=== PATIENT | male | born 1940 | race Caucasian/White ===

== ENCOUNTER 2016-08-18 06:18 | Inpatient (IN) ==
--- NOTE | 2016-08-18 06:45 | Anesthesia Evaluation PreOp ---
Date of Encounter: 08/18/16 Time of Encounter: 06:45 - Past History Planned Operation: robotic sigmoid colectomy Cardiac History: HTN (Is on atenolol for ascending aortic aneurysm. Most recent evaluation showed aneurysm has "shrunk".) Pulmonary History: CHAS Dx (On Bipap, uncertain of settings) Other Medical History: Denies Any Significant HX Anesthesia History: No Prior Anesthetic Complications (Reports history of slow wake up but no other problems.), Past Anesthesia Alcohol Use: none Drug use: none Medications and Allergies Acetaminophen [Tylenol] 500 mg PO Q6HR PRN 05/05/16 [History] Atenolol [Tenormin] 25 mg PO DAILY 05/05/16 [History] Cholecalciferol (D-3) [Vitamin D] 2,000 unit PO DAILY 05/05/16 [History] Cyanocobalamin (Vitamin B-12) [Vitamin B12] 1,000 mcg PO DAILY 05/05/16 [History ] Desoximetasone 1 appl TP BID 05/05/16 [History] Docusate [Colace] 200 mg PO TID 05/05/16 [History] Finasteride [Proscar] 5 mg PO DAILY 05/05/16 [History] Furosemide [Lasix] 40 mg PO DAILY 05/05/16 [History] Lactobacillus Acidophilus [Acidophilus Probiotic] 1 mg PO DAILY 05/05/16 [ History] Metformin HCl [Metformin HCl ER] 750 mg PO QPM 05/05/16 [History] Potassium Chloride [K-Tab ER] 20 meq PO DAILY 05/05/16 [History] Tamsulosin [Flomax] 0.4 mg PO DAILY 05/05/16 [History] Allergies Amoxicillin [From Augmentin] Allergy (Verified 06/13/16 08:19) Hives clavulanic acid [From Augmentin] Allergy (Verified 06/13/16 08:19) Hives codeine Allergy (Verified 06/13/16 08:19) Nausea Latex, Natural Rubber Allergy (Verified 06/13/16 08:19) Itching meperidine [From Demerol] Allergy (Verified 06/13/16 08:19) Hives tetanus immune globulin Allergy (Verified 06/13/16 08:19) Hives - Meds/Allergy Pre-op Review Medications Reviewed: Yes Allergies Reviewed: Yes Beta Blockers on Current Med List: Yes (Last dose at 0500) Anesthesia Results - Labs Laboratory Tests 06/13/16 08/08/16 08/08/16 08:04 14:30 14:30 Hgb 15.6 Hct 46.7 Plt Count 182 Sodium 138 Potassium 4.3 Chloride 106 Carbon Dioxide 23 Creatinine 1.03 POC Glucose 108 H - Imaging EKG: report reviewed (sinus rhythm) Anesthesia Assess/Plan ASA Score: 3 Modified Elburn Scale for Level of Consciousness: Cooperative, oriented, and tranquil Anesthetic Plan: General Monitoring Plan: Standard Monitors Recovery Plan: PACU (ASA 3 with HTN, CHAS, and morbid obesity (BMI 43). Risks of GA discussed and patient wishes to proceed.)
[2016-08-18] MEDS ORDERED: *HR* Heparin 5,000 UNIT/ML VIAL SQ ONE (07:04)
[2016-08-18] MEDS: Ringers Solution, Lactated 1,000 ML IVC SCH ×2 (07:15→09:01)
[2016-08-18] MEDS ORDERED: Clindamycin 900 MG/50 ML 900 MG/50 ML IV.SOLN IVPB ONE (07:35)
--- NOTE | 2016-08-18 07:38 | History & Physical Report ---
Date of Encounter: 08/18/16 Time of Encounter: 07:25 24 Hour HP Update - Instructions Instructions: If the History and Physical is less than 30 days old and was completed prior to A.M. admission and or procedure and has NOT been updated on calendar day of procedure please complete this update prior to performing procedure. - Update Patient reports changes in Medical Condition: No Changes in assessment/condition: No Changes in Medication: No Surgery Remains Indicated: Yes Consent for Planned Operative Procedure(s) Verified: Yes - Pre-Operative Checklist Prophylactic Antibiotic Ordered: Yes Home Medications Include Beta Ragini: Yes Is VTE Prophylaxis Indicated?: Yes
[2016-08-18] MEDS ORDERED: Ondansetron 4 MG/2 ML VIAL IVP ONE (10:14)
[2016-08-18] MEDS ORDERED: *HR* Labetalol 100 MG/20 ML MDV IVP PRN (10:14)
[2016-08-18] MEDS ORDERED: *HR* Propofol 200 MG/20 ML VIAL IVP ONE (10:24)
[2016-08-18] MEDS ORDERED: *HR* Succinylcholine 200 MG/10 ML VIAL IVP ONE (10:24)
[2016-08-18] MEDS ORDERED: *HR* FentaNYL (PF) 100 MCG/2 ML VIAL ONE (10:24)
[2016-08-18] MEDS ORDERED: *HR* HYDROmorphone 2 MG/ML SYRINGE ONE (10:24)
[2016-08-18] MEDS ORDERED: *HR* Rocuronium Bromide 50 MG/5 ML VIAL ONE ×3 (10:24→11:42)
[2016-08-18] MEDS ORDERED: Neostigmine Methylsulfate 3 MG/3 ML SYRINGE ONE (13:55)
--- NOTE | 2016-08-18 14:04 | Operative Note ---
Date of procedure: 08/18/16 Pre-op diagnosis: perforated sigmoid diverticulitis Post-op diagnosis: same Procedure: Robotic converted to open sigmoid colectomy and takedown of splenic flexure Complications: none immediate Anesthesia: CHAUNCEYA Surgeon: Josette Renae Co-Surgeon: Raoul Mccann Psychotherapist Counselor: Angela Winkler Estimated blood loss (cc): 300 IV fluids (cc): 4,000 Urine output (cc): 250 Specimen: sigmoid colon, omentum, anastomotic rings Condition: stable Disposition: PACU Procedure in Detail: Patient was brought into the operating suite and placed supine on the operating table. Sign was performed and everyone was in agreement. Anesthesia was induced and patient was endotracheally intubated by anesthesia without incident. Anesthesia placed an NG tube. Stark catheter was placed by the circulating nurse. The patient's bilateral legs were placed in yellowfin stirrups and he was placed in the lithotomy position. The bed was turned approximately 15-20 degrees with the feet to the right His abdomen was prepped and draped in the usual sterile fashion. A timeout was performed again everyone was in agreement. A stab incision in the left upper quadrant was made with 11 blade. A Veress needle was placed through this and a water drop test confirmed placement and the abdomen was insufflated. We then entered the abdomen in the left upper quadrant with a 5 mm 0 degree laparoscope on an excel trocar after first incising the skin with 11 blade. We then placed a 12 mm excel port several centimeters above into the right of the umbilicus under direct visualization after first incising the skin with an 11 blade. An 8 mm robotic port was placed in the right upper quadrant after first incising the skin with an 11 blade and placed under direct visualization. A left lateral abdominal wall 8 mm robotic port was placed in a direct visualization after first incising the skin with an 11 blade. And a 13 mm excel port was placed into the right lower quadrant near the ASIS after first incising the skin with an 11 blade. The patient's omentum was densely adherent to the anterior abdominal wall. The sigmoid colon had multiple adhesions to the anterior abdominal wall as well. The patient was placed in Trendelenburg position and the small bowel was attempted to be pushed into the upper abdomen. The robot was brought over the patient's left hip and abdomen and docked . The sigmoid colon was was elevated and the KIM located. Using the Harmonic vessel sealer an opening in the mesentery to the right of the KIM was made. Dissection in the mesentery to the right of the KIM was done with the Harmonic vessel sealer. The patient has significant intra-abdominal and mesenteric obesity and visualization was extremely difficult as well as mobilization. Dr. Rosa was assisting with the robotic component of the surgery and he ligated and transected the KIM with the Harmonic vessel sealer. She dissected through the mesentery of the sigmoid colon just distal to the KIM in an attempt to locate the left ureter and left iliac vessels. This was extremely difficult due to the patient's obesity and inadequate mobility of the sigmoid. Due to the concern for inability to locate the left ureter and the difficulty in the mobility of the sigmoid along with very poor visualization within the abdomen and the difficulty in getting the small bowel mobilized out of the pelvis the decision was made to convert to an open procedure. A midline incision through the skin into the subcutaneous tissue was made in the patient's midline abdomen with a 15 blade. We dissected through the subcutaneous tissue to the anterior abdominal wall linea alba fascia below the umbilicus. Clickers are placed on either side of the fascia for retraction and the abdomen entered with the Bovie. The midline incision was then extended superiorly into the upper abdomen and through the patient's previously placed umbilical mesh, with the Bovie. The patient was placed in Trendelenburg position. Sigmoid colon adhesions to the anterior abdominal wall and pelvis were taken down sharply with Metzenbaum scissors and the Bovie. The Bookwalter was placed for retraction The small bowel was eviscerated from the abdomen as much as possible a warm wet towel was placed over the small bowel which was held out of the way with a malleable retractor. The sigmoid colon was taken off the lateral abdominal wall at the white line of Toldt with the Bovie proceeding in a distal to proximal direction. An area of the left colon was chosen for transection and an opening in the mesentery beneath this area is made with the Bovie. A linear VIANNEY-75 stapler using a blue load was used to transect the colon at this area. The peritoneum on either side of the sigmoid down into the rectum was opened with the Bovie. An area at the proximal rectum was chosen as the area of transection and an opening in the mesentery beneath the rectum was made with gentle blunt dissection and the Bovie. A contour stapler with a green load was placed on this area of the proximal rectum the sacral promontory and the rectum was transected in this area. Using the impact LigaSure the mesentery of the sigmoid colon was dissected and transected in a proximal to distal direction. The colon was then placed off to the back table for pathology. The left colon was then further mobilized off the lateral abdominal wall at the white line of Toldt with the Bovie and gentle blunt dissection. The patient had a high splenic flexure with multiple adhesions to the omentum and the spleen which were taken down with the Bovie and gentle blunt dissection. The omentum off the distal transverse colon was elevated and with the Bovie until the splenic flexure was completely taken down in the left colon reached into the pelvis. A disposable pursestring stapler was placed across the distal left colon and the staple line transected with heavy curved Metzenbaum scissors. A 2-0 Prolene was used to secure the pursestring Prolene stitch to the bowel. Bowel dilators were introduced into the open left colon up to 29 mm. A 29 mm EEA stapler was chosen and the anvil placed in the left colon and the pursestring tied snugly to the anvil. There was concerned that there may be some distal sigmoid at the top of the pelvic brim and an area approximately 5 cm distal to this was chosen where the tinea splayed in an area beneath the mesentery at this site was opened with the Bovie and developed with gentle blunt dissection. Another contour stapler with a green load was used to transect the rectum in this area. The mesentery was then taken down with the Bovie and the specimen placed off the back table for pathology. The dilators were placed through the anus into the rectum. The EEA stapler was then placed through the anus into the rectum and the spike deployed just posterior to the staple line. The anvil was placed on this and the stapler was closed ensuring no epiploic or mesenteric fat was between the bowel. The stapler was fired and then removed. The left colon was clamped with an atraumatic bowel clamp and the patient was placed in the reverse Trendelenburg position and the pelvis filled with sterile saline. A Stark catheter 30 mL balloon was placed into the anus and the balloon deployed, 210 mL of air was then instilled into the rectum with gentle manipulation of the syringe there was air bubbles demonstrating a leak at the anastomosis. The saline was suctioned free from the abdomen in the leak located in the right lateral wall. This was closed with 4 separate 2-0 interrupted silk stitches. The leak test was redone and no further leak was detected. The abdomen was copiously irrigated with sterile saline. A 10 mm LIVAN drain was placed in the right lower quadrant with the drain tip just anterior and distal to the area of anastomosis that initially had a leak. The LIVAN drain was secured to the skin with a 2-0 silk stitch. The midline fascia was closed with 2 separate #1 nylon looped PDS running stitches meeting in the middle. The subcutaneous tissue was copiously irrigated with sterile saline and the skin closed with jaci. The 12 mm port site was closed at the fascia with an 0 Vicryl [id number] stitch. The 13 mm right lower quadrant port site at the fascia was closed with an 0 Vicryl [id number] stitch. The wounds were irrigated with saline and all port sites were closed at the skin level with jaci. A drain sponge was placed around the LIVAN drain at the level of the skin. 4 x 4 gauze and Medipore tape were applied to the midline dressing. Band-Aids were applied to the port sites. An abdominal binder was placed on the patient. The Stark catheter and NG tube remained in place. The patient was awoken in the operating room after all lap and instrument counts were correct at the end of the case. The patient tolerated the procedure well and was taken to PACU in stable condition.
[2016-08-18] MEDS ORDERED: *HR* Dextrose 50 % in Water (Syg) 50 ML SYRINGE IVP PRN ×2 (14:13→16:35)
[2016-08-18] MEDS ORDERED: Dextrose Gel 15 GM PO PRN ×4 (14:13→16:35)
[2016-08-18] MEDS ORDERED: D5% in Water 1,000 ML IV PRN ×2 (14:13→16:35)
[2016-08-18] MEDS ORDERED: Albuterol 2.5 MG/3 ML NEBULIZER ONE (14:22)
[2016-08-18] MEDS ORDERED: Albuterol 2.5 MG/3 ML NEBULIZER IH ONE (14:24)
[2016-08-18] MEDS: *HR* HYDROmorphone (PF) 1 MG/ML SYRINGE IVP PRN ×2 (14:25→14:38)
--- NOTE | 2016-08-18 15:04 | Anesthesia Evaluation Post Op ---
Date of Encounter: 08/18/16 Time of Encounter: 15:05 - Vital Signs Vital Signs: Selected Entries 08/18/16 14:39 08/18/16 14:59 Temperature 97.4 F L Pulse Rate 70 Respiratory Rate 15 O2 Sat by Pulse Oximetry 95 Oxygen Flow Rate (LPM) 3 - Lungs Lungs: Clear Ascult./Percussion - Airway Airway: Non-obstructed - Cardiovascular Regular Rate - Mental Status Mental Status: Alert & Oriented, Answers Appropriately - Nausea Vomiting Nausea Vomiting: Not Present - Hydration Hydration: NPO - Discharge PostOp Status: Transfer Patient to floor
[2016-08-18] MEDS ORDERED: Naloxone 0.4 MG/ML INJ IVP PRN (15:42)
[2016-08-18] MEDS ORDERED: *HR* Metoprolol 5 MG/5 ML VIAL IVP PRN (15:42)
[2016-08-18] MEDS: *HR* HYDROmorphone 20 MG/20 ML PCA IVC PRN (16:17)
[2016-08-18] MEDS ORDERED: Insulin LISPRO 300 UNITS/3 ML VIAL SQ SCH (18:00)
[2016-08-18] MEDS: Insulin LISPRO 300 UNITS/3 ML VIAL SQ SCH (19:00)
[2016-08-18] MEDS: *HR* Metoprolol 5 MG/5 ML VIAL IVP SCH (19:00)
[2016-08-18] MEDS: 0.9 % Sodium Chloride 1,000 ML IVC SCH (19:01)
[2016-08-18] MEDS: Pantoprazole 40 MG VIAL IVP SCH (19:06)
[2016-08-19] MEDS: Insulin LISPRO 300 UNITS/3 ML VIAL SQ SCH ×4 (00:37→17:06)
[2016-08-19] MEDS: *HR* Metoprolol 5 MG/5 ML VIAL IVP SCH ×2 (00:47→07:24)
[2016-08-19] MEDS: 0.9 % Sodium Chloride 1,000 ML IVC SCH ×3 (05:12→16:27)
[2016-08-19 06:06] LABS: Basophils % 0.3 %; Eosinophils % 0.2 %; Hematocrit 43.7 % (37.5-50.1); Hemoglobin 14.4 g/dL (12.9-16.9); Immature Granulocytes % 0.6 % (0-4); Lymphocytes # 2.2 K/mcL (0.6-4.6); Lymphocytes % 15.7 %; Mean Corpuscular Hemoglobin 28.2 pg (28.0-33.3); Mean Corpuscular Volume 85.5 fL (83.0-100.0); Mean Platelet Volume 9.9 fL (9.4-12.4); Monocytes # 1.3 K/mcL (0.0-1.3); Monocytes % 9.6 %; Neutrophils # 10.2 K/mcL (1.6-8.9); Platelet Count 232 K/mcL (140-400); Red Blood Count 5.11 M/mcL (4.19-5.50); Red Cell Distribution Width 15.8 % (11.5-14.5); Segmented Neutrophils % 73.6 %
[2016-08-19 06:18] LABS: Calcium 8.1 mg/dL (8.6-10.8); Magnesium 1.6 mg/dL (1.6-2.6); Phosphorous 5.7 mg/dL (2.3-4.7); Potassium 4.7 mEq/L (3.5-4.5)
[2016-08-19] MEDS: Pantoprazole 40 MG VIAL IVP SCH (08:29)
[2016-08-19] MEDS ORDERED: 0.9 % Sodium Chloride 500 ML IVC ONE ×3 (08:35→17:37)
[2016-08-19] MEDS ORDERED: Acetaminophen IV 1,000 MG/100 ML INFUS..BTL IVPB PRN (10:12)
--- NOTE | 2016-08-19 11:30 | General Surgery Progress Note ---
<Natalia Uribe - Last Filed: 08/19/16 11:27> Date of Encounter: 08/19/16 Time of Encounter: 11:28 - Assessment and Plan (1) Diverticular disease Current Visit: Yes Status: Acute POD #1 from Robotic to open sigmoid colectomy with Dr. Renae Maintain bowel rest with NG tube to LIWS while awaiting return of bowel function IV fluids Supportive care and pain control Continue LIVAN drain to bulb suction Continue Tom catheter to SD Increase activity as tolerated with resolution of dizziness Repeat am labs Qualifiers: Diverticulosis site: diverticulosis of large intestine Diverticulosis bleeding: diverticulosis without bleeding Qualified Code(s): K57.30 - Diverticulosis of large intestine without perforation or abscess without bleeding (2) Hypotension Current Visit: Yes Status: Acute IV fluid bolus now Monitor blood pressure Hold Metoprolol while hypotensive Qualifiers: Hypotension type: unspecified hypotension type Qualified Code(s): I95.9 - Hypotension, unspecified (3) Acute kidney injury Current Visit: Yes Status: Acute IV fluid bolus now Continue tom catheter to SD for strict I&Os Repeat labs in the am (4) Type 2 diabetes mellitus Current Visit: No Status: Acute Controlled Continue Accuchecks every 6 hours and insulin coverage per medium sliding scale coverage Will continue to monitor and adjust as necessary Qualifiers: Diabetes mellitus complication status: with unspecified complications Diabetes mellitus group home insulin use: without intermediate frame tender use Qualified Code( s): E11.8 - Type 2 diabetes mellitus with unspecified complications (5) DVT prophylaxis Current Visit: No Status: Acute Continue heparin 5,000 units SQ twice daily for DVT prophylaxis and EPCDs to bilateral lower extremities while lying in bed Subjective Patient reports: no flatus, no bowel movement, afebrile, other (Patient resting in bed and rate pain as a 3/10. Feeling dizzy and light headed. Hypotensive and Tachycardic today. Complaint of sore throat. ) Objective Vital Signs - Last 8 Hours Temp Pulse Resp BP Pulse Ox 08/19/16 10:44 99.0 F 112 12 89/55 93 L 08/19/16 09:06 106/68 08/19/16 08:30 95 08/19/16 07:01 98.5 F 112 17 95/68 95 08/19/16 04:30 99.6 F 106 19 98/67 97 Intake and Output 08/18/16 08/19/16 08/19/16 23:59 07:59 15:59 Intake Total 0 / 0 957 / 957 500 / 500 Output Total 555 / 555 345 / 345 40 / 40 Balance -555 / -555 612 / 612 460 / 460 Intake: IV Fluids 957 / 957 500 / 500 0.9 % Sodium Chloride 1, 957 / 957 000 ML @ 100 mls/hr IVC . Q10H ENOC Rx#:[id number] 0.9 % Sodium Chloride 500 500 / 500 ML @ 1875 mls/hr IVC . Q16M ONE Rx#:[id number] Oral 0 / 0 Output: Catheter 500 / 500 175 / 175 Gastric Drainage 50 / 50 Wound Drainage 55 / 55 120 / 120 40 / 40 Right Lower Abdomen 55 / 55 120 / 120 40 / 40 Other: Meal NPO NPO Percent of Meal Consumed 0% Weight 122.152 kg Blood Glucose* 143 120 Patient Weight 08/19/16 23:59 Weight 122.152 kg - General physical appearance well developed, well nourished, moderate pain, obese - Eyes normal ocular movement - ENT dry mucosa, atraumatic, normocephalic - Neck Neck exam: trachea midline - Respiratory normal respiratory effort, clear to auscultation, other (diminished bibasilar bases) - Cardiovascular Cardiovascular exam: Present: tachycardia - Abdomen Abdomen: Present: bowel sounds present (minimal), soft, tender (expected post- operative tenderness), wound (Midline with surgical dressing intact, abdominal binder in place. LIVAN drain to bulb suction with serousang. drainage noted (160ml noted since midnight)) - Genitourinary other (tom catheter to SD with dark, yellow urine noted (175ml noted since midight)) - Integumentary no rash - Neurologic CN 2-12 grossly intact - Psychiatric oriented to time, oriented to person, oriented to place, speech is normal, memory intact - Labs 08/19/16 05:27 08/19/16 05:27 Diabetes panel 08/19/16 Range/Units 05:27 Sodium 140 (136-145) mEq/L Potassium 4.7 H (3.5-4.5) mEq/L Chloride 109 (98-109) mEq/L Carbon Dioxide 23 (19-29) mEq/L BUN 16 (8-26) mg/dL Creatinine 1.60 H (0.72-1.25) mg/dL Glucose 135 H (70-99) mg/dL Calcium 8.1 L (8.6-10.8) mg/dL Calcium panel 08/19/16 Range/Units 05:27 Calcium 8.1 L (8.6-10.8) mg/dL Phosphorus 5.7 H (2.3-4.7) mg/dL Pituitary panel 08/19/16 Range/Units 05:27 Sodium 140 (136-145) mEq/L Potassium 4.7 H (3.5-4.5) mEq/L Chloride 109 (98-109) mEq/L Carbon Dioxide 23 (19-29) mEq/L BUN 16 (8-26) mg/dL Creatinine 1.60 H (0.72-1.25) mg/dL Glucose 135 H (70-99) mg/dL Calcium 8.1 L (8.6-10.8) mg/dL Adrenal panel 08/19/16 Range/Units 05:27 Sodium 140 (136-145) mEq/L Potassium 4.7 H (3.5-4.5) mEq/L Chloride 109 (98-109) mEq/L Carbon Dioxide 23 (19-29) mEq/L BUN 16 (8-26) mg/dL Creatinine 1.60 H (0.72-1.25) mg/dL Glucose 135 H (70-99) mg/dL Calcium 8.1 L (8.6-10.8) mg/dL - VTE Documentation of Mechanical Device: Intermittent pneumatic compression device Consult Discharge Plan - Plan Referrals: Natalia Uribe OCCUPATIONAL HEALTH MANAGER [Advanced Practice Nurse] - 09/12/16 10:15 am - Attending Attestation I examined this patient and my medical decision-making was reviewed with the MILL HELPER/PA/Advanced Practice Nurse/Resident Physician. I agree with the documented findings, disposition and treatment plan as described except to the extent set forth below. <Josette Renae - Last Filed: 08/19/16 15:30> - Assessment and Plan (1) S/P colectomy Current Visit: Yes Status: Acute pod1 robotic to open sigmoid colectomy low bp - bolus IVF and increase IVF rate, dc lopressor pain controlled - continue carpet journeyman continue tom for strict I/Os LIVAN drain serosang OOB to chair pulmonary toilet, IS tylenol prn fever (2) Acute kidney injury Current Visit: Yes Status: Acute increase fluid rate (3) Hypotension Current Visit: Yes Status: Acute Qualifiers: Hypotension type: unspecified hypotension type Qualified Code(s): I95.9 - Hypotension, unspecified (4) GERD (gastroesophageal reflux disease) Current Visit: No Status: Acute PPI therpay Qualifiers: Esophagitis presence: esophagitis presence not specified Qualified Code(s) : K21.9 - Gastro-esophageal reflux disease without esophagitis (5) Type 2 diabetes mellitus Current Visit: No Status: Acute Qualifiers: Diabetes mellitus complication status: with unspecified complications Diabetes mellitus intermediate frame tender insulin use: without intermediate frame tender use Qualified Code( s): E11.8 - Type 2 diabetes mellitus with unspecified complications Subjective Narrative: pain well controlled with carpet journeyman no flatus or bm no nausea, some belching Objective Vital Signs - Last 8 Hours Temp Pulse Resp BP Pulse Ox 08/19/16 10:44 99.0 F 112 12 89/55 93 L 08/19/16 09:06 106/68 08/19/16 08:30 95 Intake and Output 08/18/16 08/19/16 08/19/16 23:59 07:59 15:59 Intake Total 0 / 0 957 / 957 1680 / 1680 Output Total 555 / 555 345 / 345 40 / 40 Balance -555 / -555 612 / 612 1640 / 1640 Intake: IV Fluids 957 / 957 1680 / 1680 0.9 % Sodium Chloride 1, 957 / 957 630 / 630 000 ML @ 100 mls/hr IVC . Q10H ENOC Rx#:[id number] 0.9 % Sodium Chloride 500 1000 / 1000 ML @ 1875 mls/hr IVC . Q16M ONE Rx#:[id number] Oral 0 / 0 Output: Catheter 500 / 500 175 / 175 Gastric Drainage 50 / 50 Wound Drainage 55 / 55 120 / 120 40 / 40 Right Lower Abdomen 55 / 55 120 / 120 40 / 40 Other: Meal NPO NPO Percent of Meal Consumed 0% Weight 122.152 kg Blood Glucose* 143 120 117 Patient Weight 08/19/16 23:59 Weight 122.152 kg - General physical appearance well developed, well nourished, no distress, obese - Eyes PERRL, normal ocular movement - ENT dry mucosa, atraumatic, normocephalic - Neck Neck exam: trachea midline - Respiratory normal respiratory effort, clear to auscultation - Cardiovascular Cardiovascular exam: Present: tachycardia, no murmurs/rubs/gallops - Abdomen Abdomen: Present: bowel sounds present, soft, tender - Genitourinary other - Integumentary no rash - Neurologic CN 2-12 grossly intact - Psychiatric oriented to time, oriented to person, memory intact - Labs 08/19/16 05:27 08/19/16 05:27 Diabetes panel 08/19/16 Range/Units 05:27 Sodium 140 (136-145) mEq/L Potassium 4.7 H (3.5-4.5) mEq/L Chloride 109 (98-109) mEq/L Carbon Dioxide 23 (19-29) mEq/L BUN 16 (8-26) mg/dL Creatinine 1.60 H (0.72-1.25) mg/dL Glucose 135 H (70-99) mg/dL Calcium 8.1 L (8.6-10.8) mg/dL Calcium panel 08/19/16 Range/Units 05:27 Calcium 8.1 L (8.6-10.8) mg/dL Phosphorus 5.7 H (2.3-4.7) mg/dL Pituitary panel 08/19/16 Range/Units 05:27 Sodium 140 (136-145) mEq/L Potassium 4.7 H (3.5-4.5) mEq/L Chloride 109 (98-109) mEq/L Carbon Dioxide 23 (19-29) mEq/L BUN 16 (8-26) mg/dL Creatinine 1.60 H (0.72-1.25) mg/dL Glucose 135 H (70-99) mg/dL Calcium 8.1 L (8.6-10.8) mg/dL Adrenal panel 08/19/16 Range/Units 05:27 Sodium 140 (136-145) mEq/L Potassium 4.7 H (3.5-4.5) mEq/L Chloride 109 (98-109) mEq/L Carbon Dioxide 23 (19-29) mEq/L BUN 16 (8-26) mg/dL Creatinine 1.60 H (0.72-1.25) mg/dL Glucose 135 H (70-99) mg/dL Calcium 8.1 L (8.6-10.8) mg/dL
[2016-08-19] MEDS ORDERED: Chloraseptic Spray 177 ML BOTTLE MM PRN (11:40)
[2016-08-19] MEDS ORDERED: Lidocaine Viscous Oral Soln 15 ML SOLUTION MM PRN (11:40)
[2016-08-19] MEDS: *HR* Heparin 5,000 UNIT/ML VIAL SQ SCH (16:27)
[2016-08-20] MEDS: *HR* HYDROmorphone 20 MG/20 ML PCA IVC PRN (00:32)
[2016-08-20] MEDS: Insulin LISPRO 300 UNITS/3 ML VIAL SQ SCH ×4 (00:39→18:42)
[2016-08-20] MEDS: 0.9 % Sodium Chloride 1,000 ML IVC SCH ×3 (00:44→16:25)
[2016-08-20 05:11] LABS: Basophils # 0.1 K/mcL (0.0-0.2); Basophils % 0.6 %; Eosinophils # 0.1 K/mcL (0.0-0.6); Hematocrit 38.4 % (37.5-50.1); Immature Granulocytes % 0.5 % (0-4); Lymphocytes % 16.1 %; Mean Corpuscular HGB Conc 31.5 g/dL (31.6-35.5); Mean Corpuscular Hemoglobin 28.3 pg (28.0-33.3); Mean Corpuscular Volume 89.7 fL (83.0-100.0); Mean Platelet Volume 9.7 fL (9.4-12.4); Monocytes # 1.3 K/mcL (0.0-1.3); Monocytes % 10.2 %; Neutrophils # 9.1 K/mcL (1.6-8.9); Platelet Count 166 K/mcL (140-400); Red Blood Count 4.28 M/mcL (4.19-5.50); Red Cell Distribution Width 16.3 % (11.5-14.5); Segmented Neutrophils % 71.6 %
[2016-08-20 05:12] LABS: Hemoglobin 12.1 g/dL (12.9-16.9)
[2016-08-20 05:27] LABS: Calcium 7.6 mg/dL (8.6-10.8); Magnesium 1.5 mg/dL (1.6-2.6); Potassium 4.5 mEq/L (3.5-4.5)
[2016-08-20] MEDS: *HR* Heparin 5,000 UNIT/ML VIAL SQ SCH ×2 (06:02→18:41)
[2016-08-20] MEDS ORDERED: Magnesium Sulfate 2 GM in D5% in Water 100 ML IVPB ONE (08:16)
[2016-08-20] MEDS: Pantoprazole 40 MG VIAL IVP SCH (08:30)
[2016-08-20] MEDS ORDERED: 0.9 % Sodium Chloride 500 ML IVC ONE (08:32)
--- NOTE | 2016-08-20 10:18 | General Surgery Progress Note ---
<BrocktedberniceshaneVanessa Snow - Last Filed: 08/20/16 13:22> Date of Encounter: 08/20/16 Time of Encounter: 10:17 - Assessment and Plan (1) Diverticular disease Current Visit: Yes Status: Acute POD #2 from Robotic to open sigmoid colectomy with Dr. Renae Maintain bowel rest with NG tube to LIWS while awaiting return of bowel function IV fluids Supportive care and pain control start antibiotics for possible parotitis Continue LIVAN drain to bulb suction Continue Tom catheter to SD Increase activity as tolerated Repeat am labs Qualifiers: Diverticulosis site: diverticulosis of large intestine Diverticulosis bleeding: diverticulosis without bleeding Qualified Code(s): K57.30 - Diverticulosis of large intestine without perforation or abscess without bleeding (2) Acute kidney injury Current Visit: Yes Status: Acute Cr worse this AM 1.6 > 2.08 Continue tom catheter to SD for strict I&Os Repeat BMP at 4 PM (3) Hypotension Current Visit: Yes Status: Resolved resolved Qualifiers: Hypotension type: unspecified hypotension type Qualified Code(s): I95.9 - Hypotension, unspecified (4) Type 2 diabetes mellitus Current Visit: No Status: Acute Controlled Continue Accuchecks every 6 hours and insulin coverage per medium sliding scale coverage Will continue to monitor and adjust as necessary Qualifiers: Diabetes mellitus complication status: with unspecified complications Diabetes mellitus long-term insulin use: without long-term use Qualified Code( s): E11.8 - Type 2 diabetes mellitus with unspecified complications (5) DVT prophylaxis Current Visit: No Status: Acute Continue heparin 5,000 units SQ twice daily for DVT prophylaxis and EPCDs to bilateral lower extremities while lying in bed Subjective Patient reports: no flatus, no bowel movement, afebrile, other (still has a sore throat, complaining of ear pain/ain with swallowing) Objective Vital Signs - Last 8 Hours Temp Pulse Resp BP Pulse Ox 08/20/16 10:12 98.1 F 120 17 119/72 96 08/20/16 06:53 99.5 F 112 17 116/69 95 08/20/16 05:33 98.3 F 114 18 124/66 94 L Intake and Output 08/19/16 08/20/16 08/20/16 23:59 07:59 15:59 Intake Total 970 / 970 1000 / 1000 1238 / 1238 Output Total 390 / 390 935 / 935 500 / 500 Balance 580 / 580 65 / 65 738 / 738 Intake: IV Fluids 970 / 970 1000 / 1000 1238 / 1238 0.9 % Sodium Chloride 1, 370 / 370 1000 / 1000 1238 / 1238 000 ML @ 130 mls/hr IVC . Q7H42M [facility] Rx#:[id number] 0.9 % Sodium Chloride 500 500 / 500 ML @ 1875 mls/hr IVC . Q16M [facility] Rx#:[id number] Ofirmev 1,000 mg In 100 100 / 100 ml @ 400 mls/hr IVPB Q8HR PRN Rx#:[id number] Oral 0 / 0 0 / 0 Output: Catheter 350 / 350 650 / 650 500 / 500 Gastric Drainage 0 / 0 200 / 200 Wound Drainage 40 / 40 85 / 85 Right Lower Abdomen 40 / 40 85 / 85 Other: Meal npo Blood Glucose* 125 98 - General physical appearance well developed, well nourished, no distress - Eyes PERRL, normal ocular movement - ENT atraumatic, normocephalic, Other (pain to palpation of right parotid gland) - Neck Neck exam: trachea midline - Respiratory normal respiratory effort, clear to auscultation - Cardiovascular Cardiovascular exam: Present: RRR - Abdomen Abdomen: Present: soft, distended, tender. Absent: bowel sounds present Abdominal Tenderness: diffusely - Incision Incision: Present: draining, intact, serosanguinous - Neurologic CN 2-12 grossly intact - Psychiatric oriented to time, oriented to person, oriented to place, speech is normal - Labs 08/20/16 04:22 08/20/16 04:22 Diabetes panel 08/20/16 Range/Units 04:22 Sodium 142 (136-145) mEq/L Potassium 4.5 (3.5-4.5) mEq/L Chloride 112 H (98-109) mEq/L Carbon Dioxide 20 (19-29) mEq/L BUN 20 (8-26) mg/dL Creatinine 2.08 H (0.72-1.25) mg/dL Glucose 106 H (70-99) mg/dL Calcium 7.6 L (8.6-10.8) mg/dL Calcium panel 08/20/16 Range/Units 04:22 Calcium 7.6 L (8.6-10.8) mg/dL Phosphorus 4.0 (2.3-4.7) mg/dL Pituitary panel 08/20/16 Range/Units 04:22 Sodium 142 (136-145) mEq/L Potassium 4.5 (3.5-4.5) mEq/L Chloride 112 H (98-109) mEq/L Carbon Dioxide 20 (19-29) mEq/L BUN 20 (8-26) mg/dL Creatinine 2.08 H (0.72-1.25) mg/dL Glucose 106 H (70-99) mg/dL Calcium 7.6 L (8.6-10.8) mg/dL Adrenal panel 08/20/16 Range/Units 04:22 Sodium 142 (136-145) mEq/L Potassium 4.5 (3.5-4.5) mEq/L Chloride 112 H (98-109) mEq/L Carbon Dioxide 20 (19-29) mEq/L BUN 20 (8-26) mg/dL Creatinine 2.08 H (0.72-1.25) mg/dL Glucose 106 H (70-99) mg/dL Calcium 7.6 L (8.6-10.8) mg/dL - VTE Documentation of Mechanical Device: Intermittent pneumatic compression device Consult Discharge Plan - Plan Referrals: Natalia Uribe ORGANIZATIONAL PSYCHOLOGIST [Advanced Practice Nurse] - 09/12/16 10:15 am <Josette Renae - Last Filed: 08/20/16 13:33> Time of Encounter: 11:00 - Assessment and Plan (1) S/P colectomy Current Visit: Yes Status: Acute continue npo, ngt decompression has bowel sounds but no flatus OOB to chair, ambulate with assistance continue tom for strict I/O's - urine clear yellow today, good output HEATING PLANT SUPERINTENDENT for pain control (2) Acute kidney injury Current Visit: Yes Status: Acute Cr elevated this am with improvement in OUP and urine color improving overnight repeat Cr at 4 pm (3) Hypotension Current Visit: Yes Status: Resolved improved, restart low dose lopressor Qualifiers: Hypotension type: unspecified hypotension type Qualified Code(s): I95.9 - Hypotension, unspecified (4) GERD (gastroesophageal reflux disease) Current Visit: No Status: Acute IV ppi therpay Qualifiers: Esophagitis presence: esophagitis presence not specified Qualified Code(s) : K21.9 - Gastro-esophageal reflux disease without esophagitis (5) Type 2 diabetes mellitus Current Visit: No Status: Acute Qualifiers: Diabetes mellitus complication status: with unspecified complications Diabetes mellitus long-term insulin use: without termite treater helper use Qualified Code( s): E11.8 - Type 2 diabetes mellitus with unspecified complications (6) Parotid discomfort Current Visit: Yes Status: Acute patient may have parotitis start clindamycin ok ice chips and hard candy warm compresses to right parotid and massage parotid gland (7) Leukocytosis Current Visit: Yes Status: Acute leukocystosis improved today and likely due to surgery, continue to follow, no bandemia present Qualifiers: Leukocytosis type: unspecified Qualified Code(s): D72.829 - Elevated white blood cell count, unspecified (8) Tachycardia Current Visit: Yes Status: Acute will place on tele likely multifactorial, possible parotitis, pain as 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 per patient, likely dehydration resolved as good uop and urine clear, monitor Subjective Narrative: feels hot but has no sweats no nausea no flatus or bm pain mostly controlled on HEATING PLANT SUPERINTENDENT but he isnt hitting button as much as likely should complaining of a lot of pain at his right ear/parotid area Objective Vital Signs - Last 8 Hours Temp Pulse Resp BP Pulse Ox 08/20/16 10:12 98.1 F 120 17 119/72 96 08/20/16 06:53 99.5 F 112 17 116/69 95 08/20/16 05:33 98.3 F 114 18 124/66 94 L Intake and Output 08/19/16 08/20/16 08/20/16 23:59 07:59 15:59 Intake Total 970 / 970 1000 / 1000 1842 / 1842 Output Total 390 / 390 935 / 935 500 / 500 Balance 580 / 580 65 / 65 1342 / 1342 Intake: IV Fluids 970 / 970 1000 / 1000 1842 / 1842 0.9 % Sodium Chloride 1, 370 / 370 1000 / 1000 1238 / 1238 000 ML @ 130 mls/hr IVC . Q7H42M [facility] Rx#:[id number] 0.9 % Sodium Chloride 500 500 / 500 500 / 500 ML @ 1875 mls/hr IVC . Q16M [facility] Rx#:[id number] Ofirmev 1,000 mg In 100 100 / 100 ml @ 400 mls/hr IVPB Q8HR PRN Rx#:[id number] Magnesium Sulfate 2 GM In 104 / 104 Dextrose 5% 100 ML @ 100 mls/hr IVPB ONCE [facility] Rx# :[id number] Oral 0 / 0 0 / 0 Output: Catheter 350 / 350 650 / 650 500 / 500 Gastric Drainage 0 / 0 200 / 200 Wound Drainage 40 / 40 85 / 85 Right Lower Abdomen 40 / 40 85 / 85 Other: Meal npo Blood Glucose* 125 98 110 - General physical appearance well developed, well nourished, moderate distress, obese - Eyes PERRL, normal ocular movement - ENT dry mucosa, atraumatic, normocephalic, Other - Neck Neck exam: trachea midline - Respiratory normal expansion, clear to auscultation - Cardiovascular Cardiovascular exam: Present: tachycardia, no murmurs/rubs/gallops - Abdomen Abdomen: Present: bowel sounds present, soft, tender (expected post-operative tenderness) - Incision Incision: Present: clean and dry, intact - Genitourinary other (tom catheter) - Integumentary no rash, no growths - Neurologic CN 2-12 grossly intact - Musculoskeletal normal posture - Psychiatric oriented to time, oriented to person, memory intact - Additional Exam LIVAN draoin - serosang, draining around site - Labs 08/20/16 04:22 08/20/16 04:22 Vital Signs Temp Pulse Resp BP Pulse Ox 08/20/16 10:12 98.1 F 120 17 119/72 96 08/20/16 06:53 99.5 F 112 17 116/69 95 08/20/16 05:33 98.3 F 114 18 124/66 94 L 08/20/16 00:36 98.4 F 109 16 105/63 96 08/19/16 22:55 100.7 F H 123 08/19/16 21:19 100.0 F H 122 16 107/59 96 08/19/16 17:45 110/65 08/19/16 15:21 98.8 F 100 16 95/58 95 Intake and Output 08/19/16 08/20/16 08/20/16 23:59 07:59 15:59 Intake Total 970 / 970 1000 / 1000 1842 / 1842 Output Total 390 / 390 935 / 935 500 / 500 Balance 580 / 580 65 / 65 1342 / 1342 Intake: IV Fluids 970 / 970 1000 / 1000 1842 / 1842 0.9 % Sodium Chloride 1, 370 / 370 1000 / 1000 1238 / 1238 000 ML @ 130 mls/hr IVC . Q7H42M [facility] Rx#:[id number] 0.9 % Sodium Chloride 500 500 / 500 500 / 500 ML @ 1875 mls/hr IVC . Q16M ONE Rx#:[id number] Ofirmev 1,000 mg In 100 100 / 100 ml @ 400 mls/hr IVPB Q8HR PRN Rx#:[id number] Magnesium Sulfate 2 GM In 104 / 104 Dextrose 5% 100 ML @ 100 mls/hr IVPB ONCE ONE Rx# :[id number] Oral 0 / 0 0 / 0 Output: Catheter 350 / 350 650 / 650 500 / 500 Gastric Drainage 0 / 0 200 / 200 Wound Drainage 40 / 40 85 / 85 Right Lower Abdomen 40 / 40 85 / 85 Other: Meal npo Blood Glucose* 125 98 110 All Lab Results (24 Hours) 08/19/16 08/20/16 08/20/16 Range/Units 16:53 00:27 04:22 WBC 12.7 H (4.3-11.1) K/mcL RBC 4.28 (4.19-5.50) M/mcL Hgb 12.1 L D (12.9-16.9) g/dL Hct 38.4 (37.5-50.1) % MCV 89.7 (83.0-100.0) fL MCH 28.3 (28.0-33.3) pg MCHC 31.5 L (31.6-35.5) g/dL RDW 16.3 H (11.5-14.5) % Plt Count 166 (140-400) K/mcL MPV 9.7 (9.4-12.4) fL Immature Gran % 0.5 (0-4) % Seg Neutrophils % 71.6 % Lymphocytes % 16.1 % Monocytes % 10.2 % Eosinophils % 1.0 % Basophils % 0.6 % Neutrophils # 9.1 H (1.6-8.9) K/mcL Lymphocytes # 2.0 (0.6-4.6) K/mcL Monocytes # 1.3 (0.0-1.3) K/mcL Eosinophils # 0.1 (0.0-0.6) K/mcL Basophils # 0.1 (0.0-0.2) K/mcL Sodium (136-145) mEq/L Potassium (3.5-4.5) mEq/L Chloride (98-109) mEq/L Carbon Dioxide (19-29) mEq/L BUN (8-26) mg/dL Creatinine (0.72-1.25) mg/dL Est GFR ( Amer) (> 60) Est GFR (Non-Af Amer) (> 60) BUN/Creatinine Ratio (6-26) Glucose (70-99) mg/dL POC Glucose 125 H 101 H (58-89) Calculated Osmolality (280-300) Calcium (8.6-10.8) mg/dL Phosphorus (2.3-4.7) mg/dL Magnesium (1.6-2.6) mg/dL 08/20/16 08/20/16 08/20/16 Range/Units 04:22 05:38 10:46 WBC (4.3-11.1) K/mcL RBC (4.19-5.50) M/mcL Hgb (12.9-16.9) g/dL Hct (37.5-50.1) % MCV (83.0-100.0) fL MCH (28.0-33.3) pg MCHC (31.6-35.5) g/dL RDW (11.5-14.5) % Plt Count (140-400) K/mcL MPV (9.4-12.4) fL Immature Gran % (0-4) % Seg Neutrophils % % Lymphocytes % % Monocytes % % Eosinophils % % Basophils % % Neutrophils # (1.6-8.9) K/mcL Lymphocytes # (0.6-4.6) K/mcL Monocytes # (0.0-1.3) K/mcL Eosinophils # (0.0-0.6) K/mcL Basophils # (0.0-0.2) K/mcL Sodium 142 (136-145) mEq/L Potassium 4.5 (3.5-4.5) mEq/L Chloride 112 H (98-109) mEq/L Carbon Dioxide 20 (19-29) mEq/L BUN 20 (8-26) mg/dL Creatinine 2.08 H (0.72-1.25) mg/dL Est GFR ( Amer) 38 L (> 60) Est GFR (Non-Af Amer) 31 L (> 60) BUN/Creatinine Ratio 10 (6-26) Glucose 106 H (70-99) mg/dL POC Glucose 98 H 110 H (58-89) Calculated Osmolality 297 (280-300) Calcium 7.6 L (8.6-10.8) mg/dL Phosphorus 4.0 (2.3-4.7) mg/dL Magnesium 1.5 L (1.6-2.6) mg/dL
[2016-08-20] MEDS ORDERED: *HR* Metoprolol 5 MG/5 ML VIAL IVP SCH (12:00)
[2016-08-20] MEDS: Ipratropium/Albuterol Neb 3 ML IH SCH ×3 (13:10→21:24)
[2016-08-20] MEDS ORDERED: Clindamycin 600 MG/50 ML 600 MG/50 ML IV.SOLN IVPB SCH (13:24)
[2016-08-20] MEDS: Acetaminophen IV 1,000 MG/100 ML INFUS..BTL IVPB PRN (15:30)
[2016-08-20 16:20] LABS: Calcium 7.8 mg/dL (8.6-10.8)
[2016-08-20] MEDS ORDERED: Furosemide 20 MG/2 ML VIAL IVP ONE ×2 (16:24→18:22)
[2016-08-20] MEDS: *HR* Metoprolol 5 MG/5 ML VIAL IVP SCH (20:31)
[2016-08-20] MEDS: Clindamycin 600 MG/50 ML 600 MG/50 ML IV.SOLN IVPB SCH (22:35)
[2016-08-21] MEDS: 0.9 % Sodium Chloride 1,000 ML IVC SCH (01:02)
[2016-08-21] MEDS: Acetaminophen IV 1,000 MG/100 ML INFUS..BTL IVPB PRN (01:03)
[2016-08-21] MEDS: Insulin LISPRO 300 UNITS/3 ML VIAL SQ SCH ×4 (01:03→18:37)
[2016-08-21] MEDS: *HR* Metoprolol 5 MG/5 ML VIAL IVP SCH ×4 (02:59→21:42)
[2016-08-21 04:42] LABS: Magnesium 1.8 mg/dL (1.6-2.6); Phosphorous 2.9 mg/dL (2.3-4.7); Potassium 3.9 mEq/L (3.5-4.5)
[2016-08-21] MEDS: Ipratropium/Albuterol Neb 3 ML IH SCH ×4 (04:49→22:14)
[2016-08-21 05:06] LABS: Basophils % 0.4 %; Eosinophils # 0.3 K/mcL (0.0-0.6); Hematocrit 35.7 % (37.5-50.1); Hemoglobin 11.3 g/dL (12.9-16.9); Immature Granulocytes % 1.3 % (0-4); Lymphocytes # 1.2 K/mcL (0.6-4.6); Lymphocytes % 11.9 %; Mean Corpuscular HGB Conc 31.7 g/dL (31.6-35.5); Mean Corpuscular Hemoglobin 28.4 pg (28.0-33.3); Mean Corpuscular Volume 89.7 fL (83.0-100.0); Monocytes # 0.9 K/mcL (0.0-1.3); Monocytes % 8.8 %; Neutrophils # 7.5 K/mcL (1.6-8.9); Platelet Count 159 K/mcL (140-400); Red Blood Count 3.98 M/mcL (4.19-5.50); Red Cell Distribution Width 16.4 % (11.5-14.5); Segmented Neutrophils % 74.6 %
[2016-08-21] MEDS: *HR* Heparin 5,000 UNIT/ML VIAL SQ SCH ×3 (05:47→23:23)
[2016-08-21] MEDS: Clindamycin 600 MG/50 ML 600 MG/50 ML IV.SOLN IVPB SCH ×3 (05:47→21:42)
[2016-08-21] MEDS: Pantoprazole 40 MG VIAL IVP SCH (08:00)
--- NOTE | 2016-08-21 08:16 | General Surgery Progress Note ---
<Vanessa Small - Last Filed: 08/21/16 08:14> Date of Encounter: 08/21/16 Time of Encounter: 08:14 - Assessment and Plan (1) Diverticular disease Current Visit: Yes Status: Acute POD #3 from Robotic to open sigmoid colectomy with Dr. Renae Maintain bowel rest with NG tube to LIWS while awaiting return of bowel function IV fluids Supportive care and pain control continue antibiotics for possible parotitis Continue LIVAN drain to bulb suction Continue Tom catheter to SD Increase activity as tolerated Repeat labs AM Qualifiers: Diverticulosis site: diverticulosis of large intestine Diverticulosis bleeding: diverticulosis without bleeding Qualified Code(s): K57.30 - Diverticulosis of large intestine without perforation or abscess without bleeding (2) Acute kidney injury Current Visit: Yes Status: Acute Cr improved 2.08>1.42 Continue tom catheter to SD for strict I&Os Repeat labs AM (3) Hypotension Current Visit: Yes Status: Resolved resolved Qualifiers: Hypotension type: unspecified hypotension type Qualified Code(s): I95.9 - Hypotension, unspecified (4) Type 2 diabetes mellitus Current Visit: No Status: Acute Controlled Continue Accuchecks every 6 hours and insulin coverage per medium sliding scale coverage Will continue to monitor and adjust as necessary Qualifiers: Diabetes mellitus complication status: with unspecified complications Diabetes mellitus terminal gauger supervisor insulin use: without terminal gauger supervisor use Qualified Code( s): E11.8 - Type 2 diabetes mellitus with unspecified complications (5) DVT prophylaxis Current Visit: No Status: Acute Continue heparin 5,000 units SQ twice daily for DVT prophylaxis and EPCDs to bilateral lower extremities while lying in bed Subjective Patient reports: pain is less, no flatus, fever (T max 101.2), other (increased abdominal rumbling, belching) Objective Vital Signs - Last 8 Hours Temp Pulse Resp BP Pulse Ox 08/21/16 04:50 18 100 08/21/16 04:23 98.7 F 103 18 122/68 98 08/21/16 00:54 101.2 F H 70 20 115/70 97 Intake and Output 08/20/16 08/21/16 08/21/16 23:59 07:59 15:59 Intake Total 927 / 927 1075 / 1075 50 / 50 Output Total 1160 / 1160 1225 / 1225 Balance -233 / -233 -150 / -150 Intake: IV Fluids 927 / 927 1075 / 1075 50 / 50 0.9 % Sodium Chloride 1, 877 / 877 975 / 975 000 ML @ 130 mls/hr IVC . Q7H42M [facility] Rx#:[id number] Ofirmev 1,000 mg In 100 100 / 100 ml @ 400 mls/hr IVPB Q8HR PRN Rx#:[id number] Cleocin 600 MG/50 ML 600 50 / 50 50 / 50 mg In 50 ml @ 50 mls/hr IVPB Q8H [facility] Rx#: [id number] Oral 0 / 0 0 / 0 Output: Catheter 900 / 900 1150 / 1150 Gastric Drainage 150 / 150 0 / 0 Wound Drainage 110 / 110 75 / 75 30 / 30 Right Lower Abdomen 110 / 110 75 / 75 30 / 30 Other: Meal npo Weight 122.1 kg Blood Glucose* 111 110 Patient Weight 08/21/16 23:59 Weight 122.1 kg - General physical appearance well developed, well nourished, no distress - Eyes normal ocular movement - ENT atraumatic, normocephalic - Neck Neck exam: trachea midline - Respiratory normal respiratory effort, clear to auscultation - Cardiovascular Cardiovascular exam: Present: RRR - Abdomen Abdomen: Present: bowel sounds present, soft, distended, tender Abdominal Tenderness: diffusely - Incision Incision: Present: clean and dry, intact - Neurologic CN 2-12 grossly intact - Psychiatric oriented to time, oriented to person, oriented to place, speech is normal, memory intact - Labs 08/21/16 03:19 08/21/16 03:19 Diabetes panel 08/20/16 08/21/16 Range/Units 16:02 03:19 Sodium 143 148 H (136-145) mEq/L Potassium 4.0 3.9 (3.5-4.5) mEq/L Chloride 115 H 116 H (98-109) mEq/L Carbon Dioxide 19 21 (19-29) mEq/L BUN 17 16 (8-26) mg/dL Creatinine 1.48 H 1.42 H (0.72-1.25) mg/dL Glucose 116 H 106 H (70-99) mg/dL Calcium 7.8 L 8.0 L (8.6-10.8) mg/dL Calcium panel 08/20/16 08/21/16 Range/Units 16:02 03:19 Calcium 7.8 L 8.0 L (8.6-10.8) mg/dL Phosphorus 2.9 (2.3-4.7) mg/dL Pituitary panel 08/20/16 08/21/16 Range/Units 16:02 03:19 Sodium 143 148 H (136-145) mEq/L Potassium 4.0 3.9 (3.5-4.5) mEq/L Chloride 115 H 116 H (98-109) mEq/L Carbon Dioxide 19 21 (19-29) mEq/L BUN 17 16 (8-26) mg/dL Creatinine 1.48 H 1.42 H (0.72-1.25) mg/dL Glucose 116 H 106 H (70-99) mg/dL Calcium 7.8 L 8.0 L (8.6-10.8) mg/dL Adrenal panel 08/20/16 08/21/16 Range/Units 16:02 03:19 Sodium 143 148 H (136-145) mEq/L Potassium 4.0 3.9 (3.5-4.5) mEq/L Chloride 115 H 116 H (98-109) mEq/L Carbon Dioxide 19 21 (19-29) mEq/L BUN 17 16 (8-26) mg/dL Creatinine 1.48 H 1.42 H (0.72-1.25) mg/dL Glucose 116 H 106 H (70-99) mg/dL Calcium 7.8 L 8.0 L (8.6-10.8) mg/dL - VTE Documentation of Mechanical Device: Intermittent pneumatic compression device Consult Discharge Plan - Plan Referrals: Natalia Uribe CNP [Advanced Practice Nurse] - 09/12/16 10:15 am <Josette Renae - Last Filed: 08/21/16 10:55> Time of Encounter: 09:45 - Assessment and Plan (1) S/P colectomy Current Visit: Yes Status: Acute pod #3 robotic to open sigmoid colectomy for perfoated diverticulitis/recurrent diverticulitis pain controlled with search consultant no flatus or bm continue npo and ngt, ok ice chips and popcicles OOB to chair BID, ambulate with assistance BID LIVAN drain with serosang output await return of bowel function (2) Acute kidney injury Current Visit: Yes Status: Acute good uop (3) GERD (gastroesophageal reflux disease) Current Visit: No Status: Acute continue IV PPI therapy Qualifiers: Esophagitis presence: esophagitis presence not specified Qualified Code(s) : K21.9 - Gastro-esophageal reflux disease without esophagitis (4) Type 2 diabetes mellitus Current Visit: No Status: Acute Qualifiers: Diabetes mellitus complication status: with unspecified complications Diabetes mellitus intermediate insulin use: without terminal gauger supervisor use Qualified Code( s): E11.8 - Type 2 diabetes mellitus with unspecified complications (5) Parotid discomfort Current Visit: Yes Status: Acute pain improved today, continue clinda, hard candy, warm compresses and massage (6) Leukocytosis Current Visit: Yes Status: Acute resolved and wnl today, monitor Qualifiers: Leukocytosis type: unspecified Qualified Code(s): D72.829 - Elevated white blood cell count, unspecified (7) Tachycardia Current Visit: Yes Status: Acute fluxuating, slightly better today once diuresed overnight Subjective Narrative: patient without nausea or emesis no flatus or bm feels bowels rumbling in abdomen pain is "2" complaining of belching OOB to chair once yday Objective Vital Signs - Last 8 Hours Temp Pulse Resp BP Pulse Ox 08/21/16 09:36 16 97 08/21/16 08:18 98.9 F 99 16 130/73 97 08/21/16 08:13 100 08/21/16 04:50 18 100 08/21/16 04:23 98.7 F 103 18 122/68 98 Intake and Output 08/20/16 08/21/16 08/21/16 23:59 07:59 15:59 Intake Total 927 / 927 1075 / 1075 50 / 50 Output Total 1160 / 1160 1225 / 1225 455 / 455 Balance -233 / -233 -150 / -150 -405 / -405 Intake: IV Fluids 927 / 927 1075 / 1075 50 / 50 0.9 % Sodium Chloride 1, 877 / 877 975 / 975 000 ML @ 130 mls/hr IVC . Q7H42M [facility] Rx#:[id number] Ofirmev 1,000 mg In 100 100 / 100 ml @ 400 mls/hr IVPB Q8HR PRN Rx#:[id number] Cleocin 600 MG/50 ML 600 50 / 50 50 / 50 mg In 50 ml @ 50 mls/hr IVPB Q8H [facility] Rx#: [id number] Oral 0 / 0 0 / 0 Output: Catheter 900 / 900 1150 / 1150 425 / 425 Gastric Drainage 150 / 150 0 / 0 Wound Drainage 110 / 110 75 / 75 30 / 30 Right Lower Abdomen 110 / 110 75 / 75 30 / 30 Other: Meal npo NPO for Breakfast Weight 122.1 kg Blood Glucose* 111 110 Patient Weight 08/21/16 23:59 Weight 122.1 kg - General physical appearance well nourished, no distress, obese - Eyes PERRL, normal ocular movement - ENT dry mucosa, atraumatic, normocephalic - Neck Neck exam: trachea midline - Respiratory normal expansion, clear to auscultation - Cardiovascular Cardiovascular exam: Present: tachycardia, no murmurs/rubs/gallops - Abdomen Abdomen: Present: bowel sounds present, soft, tender (appropriate post op tenderness) Additional Comments: LIVAN drain with serousang drainage - Incision Incision: Present: clean and dry, intact - Genitourinary other (tom with clear yellow urine) - Integumentary no rash, no growths - Neurologic CN 2-12 grossly intact - Musculoskeletal normal posture - Psychiatric oriented to time, oriented to person, oriented to place, speech is normal, memory intact - Labs 08/21/16 03:19 08/21/16 03:19 Diabetes panel 08/20/16 08/21/16 Range/Units 16:02 03:19 Sodium 143 148 H (136-145) mEq/L Potassium 4.0 3.9 (3.5-4.5) mEq/L Chloride 115 H 116 H (98-109) mEq/L Carbon Dioxide 19 21 (19-29) mEq/L BUN 17 16 (8-26) mg/dL Creatinine 1.48 H 1.42 H (0.72-1.25) mg/dL Glucose 116 H 106 H (70-99) mg/dL Calcium 7.8 L 8.0 L (8.6-10.8) mg/dL Calcium panel 08/20/16 08/21/16 Range/Units 16:02 03:19 Calcium 7.8 L 8.0 L (8.6-10.8) mg/dL Phosphorus 2.9 (2.3-4.7) mg/dL Pituitary panel 08/20/16 08/21/16 Range/Units 16:02 03:19 Sodium 143 148 H (136-145) mEq/L Potassium 4.0 3.9 (3.5-4.5) mEq/L Chloride 115 H 116 H (98-109) mEq/L Carbon Dioxide 19 21 (19-29) mEq/L BUN 17 16 (8-26) mg/dL Creatinine 1.48 H 1.42 H (0.72-1.25) mg/dL Glucose 116 H 106 H (70-99) mg/dL Calcium 7.8 L 8.0 L (8.6-10.8) mg/dL Adrenal panel 08/20/16 08/21/16 Range/Units 16:02 03:19 Sodium 143 148 H (136-145) mEq/L Potassium 4.0 3.9 (3.5-4.5) mEq/L Chloride 115 H 116 H (98-109) mEq/L Carbon Dioxide 19 21 (19-29) mEq/L BUN 17 16 (8-26) mg/dL Creatinine 1.48 H 1.42 H (0.72-1.25) mg/dL Glucose 116 H 106 H (70-99) mg/dL Calcium 7.8 L 8.0 L (8.6-10.8) mg/dL Short CBC 08/21/16 Range/Units 03:19 WBC 10.1 (4.3-11.1) K/mcL Hgb 11.3 L (12.9-16.9) g/dL Hct 35.7 L (37.5-50.1) % Plt Count 159 (140-400) K/mcL Neutrophils # 7.5 (1.6-8.9) K/mcL BMP 08/21/16 08/20/16 Range/Units 03:19 16:02 Sodium 148 H 143 (136-145) mEq/L Potassium 3.9 4.0 (3.5-4.5) mEq/L Chloride 116 H 115 H (98-109) mEq/L Carbon Dioxide 21 19 (19-29) mEq/L BUN 16 17 (8-26) mg/dL Creatinine 1.42 H 1.48 H (0.72-1.25) mg/dL Glucose 106 H 116 H (70-99) mg/dL Calcium 8.0 L 7.8 L (8.6-10.8) mg/dL Vital Signs Temp Pulse Resp BP Pulse Ox 08/21/16 09:36 16 97 08/21/16 08:18 98.9 F 99 16 130/73 97 08/21/16 08:13 100 08/21/16 04:50 18 100 08/21/16 04:23 98.7 F 103 18 122/68 98 08/21/16 00:54 101.2 F H 70 20 115/70 97 08/20/16 23:08 20 100 08/20/16 21:24 17 97 08/20/16 20:30 2 L 08/20/16 18:15 98.6 F 115 17 112/73 93 L 08/20/16 15:52 16 92 L 08/20/16 15:14 100.5 F H 121 17 137/73 99 08/20/16 14:45 99.1 F 123 16 118/67 95 Intake and Output 08/20/16 08/21/16 08/21/16 23:59 07:59 15:59 Intake Total 927 / 927 1075 / 1075 50 / 50 Output Total 1160 / 1160 1225 / 1225 455 / 455 Balance -233 / -233 -150 / -150 -405 / -405 Intake: IV Fluids 927 / 927 1075 / 1075 50 / 50 0.9 % Sodium Chloride 1, 877 / 877 975 / 975 000 ML @ 130 mls/hr IVC . Q7H42M [facility] Rx#:[id number] Ofirmev 1,000 mg In 100 100 / 100 ml @ 400 mls/hr IVPB Q8HR PRN Rx#:[id number] Cleocin 600 MG/50 ML 600 50 / 50 50 / 50 mg In 50 ml @ 50 mls/hr IVPB Q8H [facility] Rx#: [id number] Oral 0 / 0 0 / 0 Output: Catheter 900 / 900 1150 / 1150 425 / 425 Gastric Drainage 150 / 150 0 / 0 Wound Drainage 110 / 110 75 / 75 30 / 30 Right Lower Abdomen 110 / 110 75 / 75 30 / 30 Other: Meal npo NPO for Breakfast Weight 122.1 kg Blood Glucose* 111 110 Patient Weight 08/21/16 23:59 Weight 122.1 kg - Imaging Chest x-ray: report reviewed, image reviewed
[2016-08-21] MEDS ORDERED: 0.9 % Sodium Chloride 1,000 ML IVC SCH (10:50)
[2016-08-21] MEDS ORDERED: Furosemide 20 MG/2 ML VIAL IVP ONE (10:56)
[2016-08-21] MEDS: *HR* HYDROmorphone 20 MG/20 ML PCA IVC PRN (12:24)
[2016-08-22 00:40] LABS: Basophils % 0.5 %; Eosinophils # 0.4 K/mcL (0.0-0.6); Hematocrit 35.9 % (37.5-50.1); Hemoglobin 11.3 g/dL (12.9-16.9); Immature Granulocytes % 0.7 % (0-4); Lymphocytes # 0.7 K/mcL (0.6-4.6); Lymphocytes % 7.7 %; Mean Corpuscular HGB Conc 31.5 g/dL (31.6-35.5); Mean Corpuscular Hemoglobin 28.1 pg (28.0-33.3); Mean Corpuscular Volume 89.3 fL (83.0-100.0); Mean Platelet Volume 9.1 fL (9.4-12.4); Monocytes # 0.7 K/mcL (0.0-1.3); Monocytes % 7.8 %; Neutrophils # 6.8 K/mcL (1.6-8.9); Platelet Count 164 K/mcL (140-400); Red Blood Count 4.02 M/mcL (4.19-5.50); Segmented Neutrophils % 78.3 %
[2016-08-22 00:52] LABS: BUN/Creatinine Ratio 11 (6-26); Blood Urea Nitrogen 12 mg/dL (8-26); Calcium 8.3 mg/dL (8.6-10.8); Carbon Dioxide 20 mEq/L (19-29); Chloride 116 mEq/L (98-109); Glucose 118 mg/dL (70-99); Osmolality,Calculated 307 (280-300); Potassium 3.6 mEq/L (3.5-4.5); Sodium 148 mEq/L (136-145); eGFR For African Americans > 60 (> 60); eGFR For Non-African Americans > 60 (> 60)
[2016-08-22] MEDS: Acetaminophen IV 1,000 MG/100 ML INFUS..BTL IVPB PRN (02:00)
[2016-08-22] MEDS: Insulin LISPRO 300 UNITS/3 ML VIAL SQ SCH ×4 (02:16→16:53)
[2016-08-22] MEDS: *HR* Metoprolol 5 MG/5 ML VIAL IVP SCH ×4 (02:35→22:08)
[2016-08-22] MEDS: Ipratropium/Albuterol Neb 3 ML IH SCH ×4 (04:29→23:13)
[2016-08-22] MEDS: 0.9 % Sodium Chloride 1,000 ML IVC SCH ×2 (07:19→07:20)
[2016-08-22] MEDS: Pantoprazole 40 MG VIAL IVP SCH (08:41)
[2016-08-22] MEDS: *HR* Heparin 5,000 UNIT/ML VIAL SQ SCH ×3 (08:41→23:51)
--- NOTE | 2016-08-22 10:11 | General Surgery Progress Note ---
<Vanessa Small - Last Filed: 08/22/16 10:09> Date of Encounter: 08/22/16 Time of Encounter: 10:09 - Assessment and Plan (1) S/P colectomy Current Visit: Yes Status: Acute POD #4 from Robotic to open sigmoid colectomy for perfoated diverticulitis/ recurrent diverticulitis with Dr. Renae Maintain bowel rest with NG tube to LIWS while awaiting return of bowel function IV fluids Supportive care and pain control Continue LIVAN drain to bulb suction Continue Stark catheter to SD Increase activity as tolerated Repeat labs AM (2) Rash Current Visit: Yes Status: Acute benadryl q4hr (3) Parotid discomfort Current Visit: Yes Status: Acute continue warm compresses and massage clindamycin stopped due to patient developing rash; known augmentin allergy (4) Tachycardia Current Visit: Yes Status: Acute EKG shows sinus tachycardia troponin 0.01 (5) Leukocytosis Current Visit: Yes Status: Resolved resolved 13.9>12.7>10.1>8.6 Qualifiers: Leukocytosis type: unspecified Qualified Code(s): D72.829 - Elevated white blood cell count, unspecified (6) Acute kidney injury Current Visit: Yes Status: Resolved resolved Cr improved 2.08>1.42>1.13 good uop (7) Hypotension Current Visit: Yes Status: Resolved resolved continue IV lopressor Qualifiers: Hypotension type: unspecified hypotension type Qualified Code(s): I95.9 - Hypotension, unspecified (8) GERD (gastroesophageal reflux disease) Current Visit: No Status: Acute continue IV PPI therapy Qualifiers: Esophagitis presence: esophagitis presence not specified Qualified Code(s) : K21.9 - Gastro-esophageal reflux disease without esophagitis (9) Type 2 diabetes mellitus Current Visit: No Status: Chronic Controlled Continue Accuchecks every 6 hours and insulin coverage per medium sliding scale coverage Will continue to monitor and adjust as necessary Qualifiers: Diabetes mellitus complication status: with unspecified complications Diabetes mellitus intermediate accountant insulin use: without intermediate use Qualified Code( s): E11.8 - Type 2 diabetes mellitus with unspecified complications (10) DVT prophylaxis Current Visit: No Status: Acute Continue heparin 5,000 units SQ twice daily for DVT prophylaxis and EPCDs to bilateral lower extremities while lying in bed Subjective Patient reports: flatus (minimal), bowel movement, blood in stool, afebrile, other (patient with rash and tachycardia) Objective Vital Signs - Last 8 Hours Temp Pulse Resp BP Pulse Ox 08/22/16 08:45 97 08/22/16 06:00 97.6 F 102 16 128/76 97 08/22/16 04:30 97 Intake and Output 08/21/16 08/22/16 08/22/16 23:59 07:59 15:59 Intake Total 1050 / 1050 741 / 741 259 / 259 Output Total 680 / 680 Balance 370 / 370 741 / 741 259 / 259 Intake: IV Fluids 1050 / 1050 741 / 741 259 / 259 0.45% Sodium Chloride 1000 / 1000 741 / 741 259 / 259 1000 Ml 1000 Ml 1,000 ML @ 90 mls/hr IVC .Q11H7M ENOC Rx#:[id number] Cleocin 600 MG/50 ML 600 50 / 50 mg In 50 ml @ 50 mls/hr IVPB Q8H ENOC Rx#: [id number] Oral 0 / 0 Output: Catheter 600 / 600 Gastric Drainage 0 / 0 Wound Drainage 80 / 80 Right Lower Abdomen 80 / 80 Other: Meal NPO NPO Percent of Meal Consumed 0% Blood Glucose* 107 96 - General physical appearance well developed, well nourished, no distress - Eyes PERRL, normal ocular movement - ENT atraumatic, normocephalic, Other (slight swelling of right cheek at location of parotid gland) - Neck Neck exam: trachea midline - Respiratory normal respiratory effort, clear to auscultation - Cardiovascular Cardiovascular exam: Present: tachycardia, regular rhythm - Abdomen Abdomen: Present: bowel sounds present, soft, tender (expected post-op) Abdominal Tenderness: diffusely - Integumentary other (rough, erythematous sandpaper maculopapular rash covering trunk and arms) - Neurologic CN 2-12 grossly intact - Psychiatric oriented to time, oriented to person, oriented to place, speech is normal - Labs 08/22/16 00:32 08/22/16 00:32 Diabetes panel 08/22/16 Range/Units 00:32 Sodium 148 H (136-145) mEq/L Potassium 3.6 (3.5-4.5) mEq/L Chloride 116 H (98-109) mEq/L Carbon Dioxide 20 (19-29) mEq/L BUN 12 (8-26) mg/dL Creatinine 1.13 (0.72-1.25) mg/dL Glucose 118 H (70-99) mg/dL Calcium 8.3 L (8.6-10.8) mg/dL Calcium panel 08/22/16 Range/Units 00:32 Calcium 8.3 L (8.6-10.8) mg/dL Pituitary panel 08/22/16 Range/Units 00:32 Sodium 148 H (136-145) mEq/L Potassium 3.6 (3.5-4.5) mEq/L Chloride 116 H (98-109) mEq/L Carbon Dioxide 20 (19-29) mEq/L BUN 12 (8-26) mg/dL Creatinine 1.13 (0.72-1.25) mg/dL Glucose 118 H (70-99) mg/dL Calcium 8.3 L (8.6-10.8) mg/dL Adrenal panel 08/22/16 Range/Units 00:32 Sodium 148 H (136-145) mEq/L Potassium 3.6 (3.5-4.5) mEq/L Chloride 116 H (98-109) mEq/L Carbon Dioxide 20 (19-29) mEq/L BUN 12 (8-26) mg/dL Creatinine 1.13 (0.72-1.25) mg/dL Glucose 118 H (70-99) mg/dL Calcium 8.3 L (8.6-10.8) mg/dL - VTE Documentation of Mechanical Device: Intermittent pneumatic compression device Consult Discharge Plan - Plan Referrals: Natalia Uribe CNP [Advanced Practice Nurse] - 09/12/16 10:15 am <Josette Renae - Last Filed: 08/23/16 13:02> Time of Encounter: 17:00 - Assessment and Plan (1) S/P colectomy Current Visit: Yes Status: Acute CT scan a/p obtained today due to continued tacchycardia, abdominal bloating and distention and nausea and vomiting, shows possible colonic ileus. (2) Acute kidney injury Current Visit: Yes Status: Resolved (3) GERD (gastroesophageal reflux disease) Current Visit: No Status: Acute Qualifiers: Esophagitis presence: esophagitis presence not specified Qualified Code(s) : K21.9 - Gastro-esophageal reflux disease without esophagitis (4) Type 2 diabetes mellitus Current Visit: No Status: Chronic Qualifiers: Diabetes mellitus complication status: with unspecified complications Diabetes mellitus intermediate accountant insulin use: without intermediate accountant use Qualified Code( s): E11.8 - Type 2 diabetes mellitus with unspecified complications (5) Parotid discomfort Current Visit: Yes Status: Acute (6) Tachycardia Current Visit: Yes Status: Acute Subjective Narrative: had nausea and emesis earlier in day despite ngt in place to LIWS, has since resolved felt bloated earlier as well pain controlled had dark marroon bloody bm, passing small amt inconsistent flatus Objective Vital Signs - Last 8 Hours Temp Pulse Resp BP Pulse Ox 08/23/16 11:32 19 91 L 08/23/16 10:37 98.1 F 108 16 113/70 93 L 08/23/16 07:30 96 08/23/16 07:27 98.2 F 106 18 118/73 96 Intake and Output 08/22/16 08/23/16 08/23/16 23:59 07:59 15:59 Intake Total 1100 / 1100 0 / 0 51 / 51 Output Total 615 / 615 615 / 615 360 / 360 Balance 485 / 485 -615 / -615 -309 / -309 Intake: IV Fluids 1000 / 1000 51 / 51 Phenergan 25 MG In 0.9 % 51 / 51 Sodium Chloride 50 ML @ 204 mls/hr IV Q6HR PRN Rx #:[id number] 0.45% Sodium Chloride 1000 / 1000 1000 Ml 1000 Ml 1,000 ML @ 90 mls/hr IVC .Q11H7M ENOC Rx#:[id number] Oral 100 / 100 0 / 0 Output: Catheter 550 / 550 300 / 300 300 / 300 Gastric Drainage 280 / 280 Wound Drainage 65 / 65 35 / 35 60 / 60 Right Lower Abdomen 65 / 65 35 / 35 60 / 60 Other: Meal NPO w/ ice chips NPO Weight 122.1 kg Blood Glucose* 99 95 109 Patient Weight 08/23/16 23:59 Weight 122.1 kg - General physical appearance well developed, well nourished, no distress - Eyes PERRL, normal ocular movement - ENT dry mucosa, atraumatic, normocephalic, Other - Neck Neck exam: trachea midline - Respiratory normal expansion, clear to auscultation - Cardiovascular Cardiovascular exam: Present: tachycardia, regular rhythm - Abdomen Abdomen: Present: bowel sounds present (rare), soft, tender - Incision Incision: Present: clean and dry, intact - Integumentary other - Neurologic CN 2-12 grossly intact - Psychiatric oriented to time, oriented to person, speech is normal - Labs 08/23/16 04:37 08/23/16 04:37 Diabetes panel 08/23/16 Range/Units 04:37 Sodium 150 H (136-145) mEq/L Potassium 3.0 L (3.5-4.5) mEq/L Chloride 116 H (98-109) mEq/L Carbon Dioxide 23 (19-29) mEq/L BUN 13 (8-26) mg/dL Creatinine 0.96 (0.72-1.25) mg/dL Glucose 94 (70-99) mg/dL Calcium 8.5 L (8.6-10.8) mg/dL Calcium panel 08/23/16 Range/Units 04:37 Calcium 8.5 L (8.6-10.8) mg/dL Pituitary panel 08/23/16 Range/Units 04:37 Sodium 150 H (136-145) mEq/L Potassium 3.0 L (3.5-4.5) mEq/L Chloride 116 H (98-109) mEq/L Carbon Dioxide 23 (19-29) mEq/L BUN 13 (8-26) mg/dL Creatinine 0.96 (0.72-1.25) mg/dL Glucose 94 (70-99) mg/dL Calcium 8.5 L (8.6-10.8) mg/dL Adrenal panel 08/23/16 Range/Units 04:37 Sodium 150 H (136-145) mEq/L Potassium 3.0 L (3.5-4.5) mEq/L Chloride 116 H (98-109) mEq/L Carbon Dioxide 23 (19-29) mEq/L BUN 13 (8-26) mg/dL Creatinine 0.96 (0.72-1.25) mg/dL Glucose 94 (70-99) mg/dL Calcium 8.5 L (8.6-10.8) mg/dL - Imaging CT scan - abdomen: report reviewed, image reviewed CT scan - pelvis: report reviewed, image reviewed - Attending Attestation I examined this patient and my medical decision-making was reviewed with the COMMUNITY SERVICE AIDE/PA/Advanced Practice Nurse/Resident Physician. I agree with the documented findings, disposition and treatment plan as described except to the extent set forth below.
[2016-08-22] MEDS: Ondansetron 4 MG/2 ML VIAL IVP PRN (12:10)
[2016-08-22] MEDS ORDERED: Promethazine 25 MG in 0.9 % Sodium Chloride 50 ML IV PRN (17:11)
[2016-08-23] MEDS: *HR* HYDROmorphone 20 MG/20 ML PCA IVC PRN (00:12)
[2016-08-23] MEDS: *HR* Metoprolol 5 MG/5 ML VIAL IVP SCH ×4 (02:10→21:59)
[2016-08-23] MEDS: Ipratropium/Albuterol Neb 3 ML IH SCH ×4 (03:32→21:48)
[2016-08-23] MEDS: Insulin LISPRO 300 UNITS/3 ML VIAL SQ SCH ×4 (03:48→17:07)
[2016-08-23 06:14] LABS: Basophils % 0.5 %; Eosinophils # 0.8 K/mcL (0.0-0.6); Eosinophils % 10.7 %; Hematocrit 36.4 % (37.5-50.1); Hemoglobin 11.3 g/dL (12.9-16.9); Immature Granulocytes % 0.5 % (0-4); Lymphocytes # 0.8 K/mcL (0.6-4.6); Lymphocytes % 10.8 %; Mean Corpuscular Hemoglobin 27.9 pg (28.0-33.3); Mean Corpuscular Volume 89.9 fL (83.0-100.0); Mean Platelet Volume 9.8 fL (9.4-12.4); Monocytes # 0.6 K/mcL (0.0-1.3); Monocytes % 7.4 %; Neutrophils # 5.4 K/mcL (1.6-8.9); Platelet Count 191 K/mcL (140-400); Red Blood Count 4.05 M/mcL (4.19-5.50); Segmented Neutrophils % 70.1 %
[2016-08-23 06:31] LABS: BUN/Creatinine Ratio 14 (6-26); Blood Urea Nitrogen 13 mg/dL (8-26); Calcium 8.5 mg/dL (8.6-10.8); Carbon Dioxide 23 mEq/L (19-29); Chloride 116 mEq/L (98-109); Glucose 94 mg/dL (70-99); Osmolality,Calculated 310 (280-300); Sodium 150 mEq/L (136-145); eGFR For African Americans > 60 (> 60); eGFR For Non-African Americans > 60 (> 60)
[2016-08-23] MEDS: Pantoprazole 40 MG VIAL IVP SCH (07:26)
[2016-08-23] MEDS: *HR* Heparin 5,000 UNIT/ML VIAL SQ SCH ×2 (07:26→17:07)
--- NOTE | 2016-08-23 11:40 | General Surgery Progress Note ---
<Natalia Uribe - Last Filed: 08/23/16 11:37> Date of Encounter: 08/23/16 Time of Encounter: 11:00 - Assessment and Plan (1) Diverticular disease Current Visit: Yes Status: Acute POD #5 from Robotic to open sigmoid colectomy with Dr. Renae Place NG tube to gravity drain- may have sips of liquids IV fluids- 0.45NS Supportive care and pain control Continue LIVAN drain to bulb suction Discontinue tom catheter Out of bed to chair and ambulate with assistance- PT/OT consulted Discontinue telemetry and continuous pulse oximetry Repeat am labs Qualifiers: Diverticulosis site: diverticulosis of large intestine Diverticulosis bleeding: diverticulosis without bleeding Qualified Code(s): K57.30 - Diverticulosis of large intestine without perforation or abscess without bleeding (2) Type 2 diabetes mellitus Current Visit: No Status: Chronic Controlled Continue Accuchecks every 6 hours and insulin coverage per medium sliding scale coverage Will continue to monitor and adjust as necessary Qualifiers: Diabetes mellitus complication status: with unspecified complications Diabetes mellitus terminal makeup operator insulin use: without penitentiary use Qualified Code( s): E11.8 - Type 2 diabetes mellitus with unspecified complications (3) Postoperative ileus Current Visit: Yes Status: Acute Place NG tube to gravity drain Sips of clear liquids Reglan 5ml every 6 hours (4) Hypokalemia Current Visit: Yes Status: Acute Will monitor May replace with Kphos if phos level is not high (5) Hypernatremia Current Visit: Yes Status: Acute Patient on 0.45NS Will continue to monitor- repeat am labs (6) DVT prophylaxis Current Visit: No Status: Acute Continue heparin 5,000 units SQ twice daily for DVT prophylaxis and EPCDs to bilateral lower extremities while lying in bed Subjective Patient reports: feels better, still having pain, pain is less, flatus, bowel movement (this am), nausea (intermittent, none at this time), afebrile, other ( Patient out of bed to chair) Objective Vital Signs - Last 8 Hours Temp Pulse Resp BP Pulse Ox 08/23/16 11:32 19 91 L 08/23/16 10:37 98.1 F 108 16 113/70 93 L 08/23/16 07:30 96 08/23/16 07:27 98.2 F 106 18 118/73 96 08/23/16 04:33 98.1 F 108 16 115/66 95 Intake and Output 08/22/16 08/23/16 08/23/16 23:59 07:59 15:59 Intake Total 1100 / 1100 0 / 0 51 Output Total 615 / 615 615 / 615 360 / 360 Balance 485 / 485 -615 / -615 -309 / -309 Intake: IV Fluids 1000 / 1000 51 Phenergan 25 MG In 0.9 % 51 Sodium Chloride 50 ML @ 204 mls/hr IV Q6HR PRN Rx #:[id number] 0.45% Sodium Chloride 1000 / 1000 1000 Ml 1000 Ml 1,000 ML @ 90 mls/hr IVC .Q11H7M ENOC Rx#:[id number] Oral 100 / 100 0 / 0 Output: Catheter 550 / 550 300 / 300 300 / 300 Gastric Drainage 280 / 280 Wound Drainage 65 / 65 35 / 35 60 / 60 Right Lower Abdomen 65 / 65 35 / 35 60 / 60 Other: Meal NPO w/ ice chips NPO Weight 122.1 kg Blood Glucose* 99 95 109 Patient Weight 08/23/16 23:59 Weight 122.1 kg - General physical appearance well developed, well nourished, moderate pain, obese - Eyes normal ocular movement - ENT dry mucosa, atraumatic, normocephalic - Neck Neck exam: trachea midline - Respiratory normal respiratory effort, clear to auscultation - Cardiovascular Cardiovascular exam: Present: tachycardia - Abdomen Abdomen: Present: soft, distended, tender (expected post-operative tenderness), wound (LIVAN drain to bulb suction with serousang. drainage noted) - Incision Incision: Present: clean and dry, intact - Genitourinary other (tom catheter to SD with clear, yellow urine) - Integumentary other (rash noted and unchanged today) - Neurologic CN 2-12 grossly intact - Musculoskeletal other (moderate deconditioning) - Psychiatric oriented to time, oriented to person, oriented to place, speech is normal, memory intact - Labs 08/23/16 04:37 08/23/16 04:37 Diabetes panel 08/23/16 Range/Units 04:37 Sodium 150 H (136-145) mEq/L Potassium 3.0 L (3.5-4.5) mEq/L Chloride 116 H (98-109) mEq/L Carbon Dioxide 23 (19-29) mEq/L BUN 13 (8-26) mg/dL Creatinine 0.96 (0.72-1.25) mg/dL Glucose 94 (70-99) mg/dL Calcium 8.5 L (8.6-10.8) mg/dL Calcium panel 08/23/16 Range/Units 04:37 Calcium 8.5 L (8.6-10.8) mg/dL Pituitary panel 08/23/16 Range/Units 04:37 Sodium 150 H (136-145) mEq/L Potassium 3.0 L (3.5-4.5) mEq/L Chloride 116 H (98-109) mEq/L Carbon Dioxide 23 (19-29) mEq/L BUN 13 (8-26) mg/dL Creatinine 0.96 (0.72-1.25) mg/dL Glucose 94 (70-99) mg/dL Calcium 8.5 L (8.6-10.8) mg/dL Adrenal panel 08/23/16 Range/Units 04:37 Sodium 150 H (136-145) mEq/L Potassium 3.0 L (3.5-4.5) mEq/L Chloride 116 H (98-109) mEq/L Carbon Dioxide 23 (19-29) mEq/L BUN 13 (8-26) mg/dL Creatinine 0.96 (0.72-1.25) mg/dL Glucose 94 (70-99) mg/dL Calcium 8.5 L (8.6-10.8) mg/dL - VTE Documentation of Mechanical Device: Intermittent pneumatic compression device Consult Discharge Plan - Plan Referrals: Natalia Uribe ARCHITECTURAL DRAFTING INSTRUCTOR [Advanced Practice Nurse] - 09/12/16 10:15 am - Attending Attestation I examined this patient and my medical decision-making was reviewed with the CASE INVESTIGATOR/PA/Advanced Practice Nurse/Resident Physician. I agree with the documented findings, disposition and treatment plan as described except to the extent set forth below. 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 pain control some flatus but essentially without bowel sounds, had liquid bm today, await better return of bowel function (2) GERD (gastroesophageal reflux disease) Current Visit: No Status: Acute Qualifiers: Esophagitis presence: esophagitis presence not specified Qualified Code(s) : K21.9 - Gastro-esophageal reflux disease without esophagitis (3) Type 2 diabetes mellitus Current Visit: No Status: Chronic Qualifiers: Diabetes mellitus complication status: with unspecified complications Diabetes mellitus terminal makeup operator insulin use: without penitentiary use Qualified Code( s): E11.8 - Type 2 diabetes mellitus with unspecified complications (4) Parotid discomfort Current Visit: Yes Status: Acute still present but better, continue conservative measures Objective Vital Signs - Last 8 Hours Temp Pulse Resp BP Pulse Ox 08/23/16 11:32 19 91 L 08/23/16 10:37 98.1 F 108 16 113/70 93 L 08/23/16 07:30 96 08/23/16 07:27 98.2 F 106 18 118/73 96 Intake and Output 08/22/16 08/23/16 08/23/16 23:59 07:59 15:59 Intake Total 1100 / 1100 0 / 0 51 / 51 Output Total 615 / 615 615 / 615 360 / 360 Balance 485 / 485 -615 / -615 -309 / -309 Intake: IV Fluids 1000 / 1000 51 / 51 Phenergan 25 MG In 0.9 % 51 / 51 Sodium Chloride 50 ML @ 204 mls/hr IV Q6HR PRN Rx #:[id number] 0.45% Sodium Chloride 1000 / 1000 1000 Ml 1000 Ml 1,000 ML @ 90 mls/hr IVC .Q11H7M ENOC Rx#:[id number] Oral 100 / 100 0 / 0 Output: Catheter 550 / 550 300 / 300 300 / 300 Gastric Drainage 280 / 280 Wound Drainage 65 / 65 35 / 35 60 / 60 Right Lower Abdomen 65 / 65 35 / 35 60 / 60 Other: Meal NPO w/ ice chips NPO Weight 122.1 kg Blood Glucose* 99 95 109 Patient Weight 08/23/16 23:59 Weight 122.1 kg - Labs 08/23/16 04:37 08/23/16 04:37 Diabetes panel 08/23/16 Range/Units 04:37 Sodium 150 H (136-145) mEq/L Potassium 3.0 L (3.5-4.5) mEq/L Chloride 116 H (98-109) mEq/L Carbon Dioxide 23 (19-29) mEq/L BUN 13 (8-26) mg/dL Creatinine 0.96 (0.72-1.25) mg/dL Glucose 94 (70-99) mg/dL Calcium 8.5 L (8.6-10.8) mg/dL Calcium panel 08/23/16 Range/Units 04:37 Calcium 8.5 L (8.6-10.8) mg/dL Pituitary panel 08/23/16 Range/Units 04:37 Sodium 150 H (136-145) mEq/L Potassium 3.0 L (3.5-4.5) mEq/L Chloride 116 H (98-109) mEq/L Carbon Dioxide 23 (19-29) mEq/L BUN 13 (8-26) mg/dL Creatinine 0.96 (0.72-1.25) mg/dL Glucose 94 (70-99) mg/dL Calcium 8.5 L (8.6-10.8) mg/dL Adrenal panel 08/23/16 Range/Units 04:37 Sodium 150 H (136-145) mEq/L Potassium 3.0 L (3.5-4.5) mEq/L Chloride 116 H (98-109) mEq/L Carbon Dioxide 23 (19-29) mEq/L BUN 13 (8-26) mg/dL Creatinine 0.96 (0.72-1.25) mg/dL Glucose 94 (70-99) mg/dL Calcium 8.5 L (8.6-10.8) mg/dL
[2016-08-23] MEDS: Metoclopramide 10 MG/2 ML VIAL IVP SCH ×2 (13:02→17:06)
[2016-08-24] MEDS: Insulin LISPRO 300 UNITS/3 ML VIAL SQ SCH ×4 (00:09→18:18)
[2016-08-24] MEDS: *HR* Heparin 5,000 UNIT/ML VIAL SQ SCH ×4 (01:23→23:50)
[2016-08-24] MEDS: Metoclopramide 10 MG/2 ML VIAL IVP SCH ×5 (01:23→23:50)
[2016-08-24] MEDS: *HR* Metoprolol 5 MG/5 ML VIAL IVP SCH ×4 (03:24→19:46)
[2016-08-24] MEDS: Ipratropium/Albuterol Neb 3 ML IH SCH ×4 (03:46→20:41)
[2016-08-24 06:04] LABS: Basophils % 0.5 %; Eosinophils # 0.7 K/mcL (0.0-0.6); Eosinophils % 8.1 %; Hematocrit 34.8 % (37.5-50.1); Hemoglobin 11.3 g/dL (12.9-16.9); Immature Granulocytes % 1.2 % (0-4); Lymphocytes # 0.7 K/mcL (0.6-4.6); Mean Corpuscular HGB Conc 32.5 g/dL (31.6-35.5); Mean Corpuscular Hemoglobin 28.3 pg (28.0-33.3); Mean Corpuscular Volume 87.2 fL (83.0-100.0); Mean Platelet Volume 9.2 fL (9.4-12.4); Monocytes # 0.6 K/mcL (0.0-1.3); Monocytes % 7.8 %; Platelet Count 217 K/mcL (140-400); Red Blood Count 3.99 M/mcL (4.19-5.50); Red Cell Distribution Width 15.8 % (11.5-14.5); Segmented Neutrophils % 73.4 %
[2016-08-24 06:16] LABS: BUN/Creatinine Ratio 14 (6-26); Blood Urea Nitrogen 13 mg/dL (8-26); Calcium 8.5 mg/dL (8.6-10.8); Carbon Dioxide 23 mEq/L (19-29); Chloride 114 mEq/L (98-109); Glucose 113 mg/dL (70-99); Osmolality,Calculated 309 (280-300); Potassium 2.6 mEq/L (3.5-4.5); Sodium 149 mEq/L (136-145); eGFR For African Americans > 60 (> 60); eGFR For Non-African Americans > 60 (> 60)
[2016-08-24 08:16] LABS: Phosphorous 2.2 mg/dL (2.3-4.7)
[2016-08-24] MEDS ORDERED: Potassium Phosphate 44 MEQ in 0.9 % Sodium Chloride 250 ML IVPB ONE ×2 (08:29→18:34)
[2016-08-24] MEDS: *HR* HYDROmorphone 20 MG/20 ML PCA IVC PRN (09:21)
[2016-08-24] MEDS: Finasteride 5 MG TABLET PO SCH (09:48)
[2016-08-24] MEDS: Pantoprazole 40 MG VIAL IVP SCH (09:48)
--- NOTE | 2016-08-24 11:34 | General Surgery Progress Note ---
<Vanessa Small - Last Filed: 08/24/16 11:42> Date of Encounter: 08/24/16 Time of Encounter: 11:31 - Assessment and Plan (1) S/P colectomy Current Visit: Yes Status: Acute POD #6 from Robotic to open sigmoid colectomy for perforated diverticulitis/ recurrent diverticulitis with Dr. Renae sips of clear fluids NG to gravity drain IV fluids - 0.45 NS supportive care and pain control continue LIVAN drain to bulb suction out of bed and ambulate with assistance repeat labs AM (2) Hypokalemia Current Visit: Yes Status: Acute repleted this AM with potassium phosphate 44meq (3) Hypernatremia Current Visit: Yes Status: Acute 0.45 NS (4) Postoperative ileus Current Visit: Yes Status: Acute reglan 5ml q6hr (5) Tachycardia Current Visit: Yes Status: Acute EKG 08/22/2016 shows sinus tachycardia troponin 0.01 (6) Type 2 diabetes mellitus Current Visit: No Status: Chronic Controlled Continue Accuchecks every 6 hours and insulin coverage per medium sliding scale coverage Will continue to monitor and adjust as necessary Qualifiers: Diabetes mellitus complication status: with unspecified complications Diabetes mellitus retirement insulin use: without retirement use Qualified Code( s): E11.8 - Type 2 diabetes mellitus with unspecified complications (7) Rash Current Visit: Yes Status: Acute improved benadryl q4hr PRN (8) Parotid discomfort Current Visit: Yes Status: Resolved resolved (9) Leukocytosis Current Visit: Yes Status: Resolved resolved Qualifiers: Leukocytosis type: unspecified Qualified Code(s): D72.829 - Elevated white blood cell count, unspecified (10) Acute kidney injury Current Visit: Yes Status: Resolved resolved good uop (11) Hypotension Current Visit: Yes Status: Resolved resolved Qualifiers: Hypotension type: unspecified hypotension type Qualified Code(s): I95.9 - Hypotension, unspecified (12) GERD (gastroesophageal reflux disease) Current Visit: No Status: Acute continue IV PPI therapy Qualifiers: Esophagitis presence: esophagitis presence not specified Qualified Code(s) : K21.9 - Gastro-esophageal reflux disease without esophagitis (13) DVT prophylaxis Current Visit: No Status: Acute Continue heparin 5,000 units SQ twice daily for DVT prophylaxis and EPCDs to bilateral lower extremities while lying in bed Subjective Patient reports: still having pain, pain is less, voiding w/o difficulty, flatus (minimal), bowel movement (last BM this AM), afebrile Objective Vital Signs - Last 8 Hours Temp Pulse Resp BP Pulse Ox 08/24/16 10:52 14 93 L 08/24/16 07:17 98.3 F 108 14 96/57 93 L 08/24/16 03:54 98.2 F 107 16 118/79 93 L Intake and Output 08/23/16 08/24/16 08/24/16 23:59 07:59 15:59 Intake Total 1000 / 1000 1000 / 1000 301 / 301 Output Total 260 / 260 370 / 370 55 / 55 Balance 740 / 740 630 / 630 246 / 246 Intake: IV Fluids 1000 / 1000 1000 / 1000 301 / 301 0.45% Sodium Chloride 1000 / 1000 1000 / 1000 301 / 301 1000 Ml 1000 Ml 1,000 ML @ 90 mls/hr IVC .[id number] [facility] Rx#:[id number] Oral 0 / 0 0 / 0 Output: Urine 200 / 200 250 / 250 Wound Drainage 60 / 60 120 / 120 55 / 55 Right Lower Abdomen 60 / 60 120 / 120 55 / 55 Other: Meal NPO Blood Glucose* 119 115 - General physical appearance well developed, well nourished, no distress - Eyes normal ocular movement - ENT normal mucosa, atraumatic, normocephalic - Neck Neck exam: trachea midline - Respiratory normal respiratory effort, clear to auscultation - Cardiovascular Cardiovascular exam: Present: tachycardia - Abdomen Abdomen: Present: soft, tender (expected post-op), wound (LIVAN drain to bulb suction with serousanguinous drainage ). Absent: bowel sounds present - Integumentary other (rash improved ) - Neurologic CN 2-12 grossly intact - Musculoskeletal other (moderate deconditioning) - Psychiatric oriented to time, oriented to person, oriented to place, speech is normal, memory intact - Labs 08/24/16 05:24 08/24/16 05:24 Diabetes panel 08/24/16 Range/Units 05:24 Sodium 149 H (136-145) mEq/L Potassium 2.6 L (3.5-4.5) mEq/L Chloride 114 H (98-109) mEq/L Carbon Dioxide 23 (19-29) mEq/L BUN 13 (8-26) mg/dL Creatinine 0.92 (0.72-1.25) mg/dL Glucose 113 H (70-99) mg/dL Calcium 8.5 L (8.6-10.8) mg/dL Calcium panel 08/23/16 08/24/16 Range/Units 04:37 05:24 Calcium 8.5 L (8.6-10.8) mg/dL Phosphorus 2.3 2.2 L (2.3-4.7) mg/dL Pituitary panel 08/24/16 Range/Units 05:24 Sodium 149 H (136-145) mEq/L Potassium 2.6 L (3.5-4.5) mEq/L Chloride 114 H (98-109) mEq/L Carbon Dioxide 23 (19-29) mEq/L BUN 13 (8-26) mg/dL Creatinine 0.92 (0.72-1.25) mg/dL Glucose 113 H (70-99) mg/dL Calcium 8.5 L (8.6-10.8) mg/dL Adrenal panel 08/24/16 Range/Units 05:24 Sodium 149 H (136-145) mEq/L Potassium 2.6 L (3.5-4.5) mEq/L Chloride 114 H (98-109) mEq/L Carbon Dioxide 23 (19-29) mEq/L BUN 13 (8-26) mg/dL Creatinine 0.92 (0.72-1.25) mg/dL Glucose 113 H (70-99) mg/dL Calcium 8.5 L (8.6-10.8) mg/dL - VTE Documentation of Mechanical Device: Intermittent pneumatic compression device Consult Discharge Plan - Plan Referrals: Natalia Uribe [employer] [Advanced Practice Nurse] - 09/12/16 10:15 am <Josette Renae - Last Filed: 08/25/16 14:43> - Assessment and Plan (1) S/P colectomy Current Visit: Yes Status: Acute will dc ngt and allow clear trays of liquids dc ivf restart home meds (2) GERD (gastroesophageal reflux disease) Current Visit: No Status: Acute Qualifiers: Esophagitis presence: esophagitis presence not specified Qualified Code(s) : K21.9 - Gastro-esophageal reflux disease without esophagitis (3) Type 2 diabetes mellitus Current Visit: No Status: Chronic Qualifiers: Diabetes mellitus complication status: with unspecified complications Diabetes mellitus implementation director insulin use: without retirement use Qualified Code( s): E11.8 - Type 2 diabetes mellitus with unspecified complications Subjective Narrative: passing flatus, no nausea, had a bm, tolerated some sips clears Objective Vital Signs - Last 8 Hours Temp Pulse Resp BP Pulse Ox 08/25/16 11:53 97.8 F 105 17 121/69 98 08/25/16 09:43 16 95 08/25/16 08:39 96 08/25/16 06:56 98.9 F 99 16 127/79 96 Intake and Output 08/24/16 08/25/16 08/25/16 23:59 07:59 15:59 Intake Total 200 / 200 300 / 300 120 / 120 Output Total 745 / 745 350 / 350 300 / 300 Balance -545 / -545 -50 / -50 -180 / -180 Intake: Oral 200 / 200 300 / 300 120 / 120 Output: Urine 675 / 675 300 / 300 200 / 200 Emesis 50 / 50 Wound Drainage 20 / 20 50 / 50 100 / 100 Right Lower Abdomen 20 / 20 50 / 50 100 / 100 Other: Meal Dinner Percent of Meal Consumed 30% # Voids 1 Weight 122.2 kg Blood Glucose* 150 117 111 Patient Weight 08/25/16 23:59 Weight 122.2 kg - General physical appearance well developed, well nourished, no distress - Eyes PERRL, normal ocular movement - ENT normal mucosa, normocephalic - Respiratory normal expansion, clear to auscultation - Cardiovascular Cardiovascular exam: Present: tachycardia - Abdomen Abdomen: Present: bowel sounds present, soft, tender, wound - Genitourinary other (swollen edematous scrotum) - Neurologic CN 2-12 grossly intact - Musculoskeletal normal posture - Psychiatric oriented to time, oriented to person, speech is normal, memory intact - Labs 08/25/16 09:34 08/25/16 09:34 Diabetes panel 08/24/16 08/24/16 08/25/16 Range/Units 05:24 18:40 09:34 Sodium 148 H (136-145) mEq/L Potassium 2.8 L 2.7 L 2.5 L* (3.5-4.5) mEq/L Chloride 111 H (98-109) mEq/L Carbon Dioxide 26 (19-29) mEq/L BUN 11 (8-26) mg/dL Creatinine 0.93 (0.72-1.25) mg/dL Glucose 183 H (70-99) mg/dL Calcium 8.7 (8.6-10.8) mg/dL Calcium panel 08/25/16 Range/Units 09:34 Calcium 8.7 (8.6-10.8) mg/dL Phosphorus 3.2 (2.3-4.7) mg/dL Pituitary panel 08/24/16 08/24/16 08/25/16 Range/Units 05:24 18:40 09:34 Sodium 148 H (136-145) mEq/L Potassium 2.8 L 2.7 L 2.5 L* (3.5-4.5) mEq/L Chloride 111 H (98-109) mEq/L Carbon Dioxide 26 (19-29) mEq/L BUN 11 (8-26) mg/dL Creatinine 0.93 (0.72-1.25) mg/dL Glucose 183 H (70-99) mg/dL Calcium 8.7 (8.6-10.8) mg/dL Adrenal panel 08/24/16 08/24/16 08/25/16 Range/Units 05:24 18:40 09:34 Sodium 148 H (136-145) mEq/L Potassium 2.8 L 2.7 L 2.5 L* (3.5-4.5) mEq/L Chloride 111 H (98-109) mEq/L Carbon Dioxide 26 (19-29) mEq/L BUN 11 (8-26) mg/dL Creatinine 0.93 (0.72-1.25) mg/dL Glucose 183 H (70-99) mg/dL Calcium 8.7 (8.6-10.8) mg/dL
[2016-08-24] MEDS ORDERED: *HR* OxyCODONE/APAP 5/325 TABLET PO PRN (12:33)
[2016-08-24] MEDS ORDERED: *HR* HYDROmorphone 2 MG/ML SYRINGE IVP PRN (12:35)
[2016-08-24] MEDS ORDERED: Furosemide 20 MG/2 ML VIAL IVP ONE (12:37)
[2016-08-24] MEDS: Ondansetron 4 MG/2 ML VIAL IVP PRN (18:18)
[2016-08-24] MEDS ORDERED: Furosemide 40 MG TABLET PO PRN (18:35)
[2016-08-25] MEDS: Insulin LISPRO 300 UNITS/3 ML VIAL SQ SCH ×4 (01:11→17:02)
[2016-08-25] MEDS: Ipratropium/Albuterol Neb 3 ML IH SCH ×4 (04:11→21:24)
[2016-08-25] MEDS: Metoclopramide 10 MG/2 ML VIAL IVP SCH ×3 (05:22→17:03)
[2016-08-25] MEDS: Pantoprazole 40 MG VIAL IVP SCH (08:12)
[2016-08-25] MEDS: Finasteride 5 MG TABLET PO SCH (08:14)
[2016-08-25] MEDS: *HR* Heparin 5,000 UNIT/ML VIAL SQ SCH ×2 (08:14→17:03)
[2016-08-25 09:40] LABS: Basophils # 0.1 K/mcL (0.0-0.2); Basophils % 0.7 %; Eosinophils # 0.6 K/mcL (0.0-0.6); Eosinophils % 9.1 %; Hematocrit 35.7 % (37.5-50.1); Hemoglobin 11.8 g/dL (12.9-16.9); Immature Granulocytes % 1.7 % (0-4); Lymphocytes # 0.9 K/mcL (0.6-4.6); Lymphocytes % 12.5 %; Mean Corpuscular HGB Conc 33.1 g/dL (31.6-35.5); Mean Corpuscular Volume 84.6 fL (83.0-100.0); Mean Platelet Volume 9.1 fL (9.4-12.4); Monocytes # 0.4 K/mcL (0.0-1.3); Monocytes % 6.1 %; Neutrophils # 4.9 K/mcL (1.6-8.9); Platelet Count 222 K/mcL (140-400); Red Blood Count 4.22 M/mcL (4.19-5.50); Red Cell Distribution Width 15.4 % (11.5-14.5); Segmented Neutrophils % 69.9 %
[2016-08-25 09:55] LABS: BUN/Creatinine Ratio 12 (6-26); Blood Urea Nitrogen 11 mg/dL (8-26); Calcium 8.7 mg/dL (8.6-10.8); Carbon Dioxide 26 mEq/L (19-29); Chloride 111 mEq/L (98-109); Glucose 183 mg/dL (70-99); Osmolality,Calculated 310 (280-300); Phosphorous 3.2 mg/dL (2.3-4.7); Sodium 148 mEq/L (136-145); eGFR For African Americans > 60 (> 60); eGFR For Non-African Americans > 60 (> 60)
[2016-08-25 09:57] LABS: Potassium 2.5 mEq/L (3.5-4.5)
--- NOTE | 2016-08-25 16:09 | General Surgery Progress Note ---
<Vanessa Small - Last Filed: 08/25/16 16:07> Date of Encounter: 08/25/16 Time of Encounter: 16:07 - Assessment and Plan (1) S/P colectomy Current Visit: Yes Status: Acute POD #7 from Robotic to open sigmoid colectomy for perforated diverticulitis/ recurrent diverticulitis with Dr. Renae full liquid diet supportive care and pain control continue LIVAN drain to bulb suction out of bed and ambulate with assistance repeat labs AM (2) Hypokalemia Current Visit: Yes Status: Acute repleted this AM with 60 meq KCl repeat BMP at 1600 (3) Hypernatremia Current Visit: Yes Status: Acute IVF have been discontinued full liquid diet continue to monitor repeat AM labs (4) Postoperative ileus Current Visit: Yes Status: Acute reglan 5ml q6hr (5) Tachycardia Current Visit: Yes Status: Acute EKG 08/22/2016 shows sinus tachycardia, troponin 0.01 (6) Type 2 diabetes mellitus Current Visit: No Status: Chronic Controlled Continue Accuchecks every 6 hours and insulin coverage per medium sliding scale coverage Will continue to monitor and adjust as necessary Qualifiers: Diabetes mellitus complication status: with unspecified complications Diabetes mellitus residential insulin use: without terminal worker use Qualified Code( s): E11.8 - Type 2 diabetes mellitus with unspecified complications (7) Rash Current Visit: Yes Status: Acute improved benadryl q4hr PRN (8) Parotid discomfort Current Visit: Yes Status: Resolved resolved (9) Leukocytosis Current Visit: Yes Status: Resolved resolved Qualifiers: Leukocytosis type: unspecified Qualified Code(s): D72.829 - Elevated white blood cell count, unspecified (10) Acute kidney injury Current Visit: Yes Status: Resolved resolved good uop (11) Hypotension Current Visit: Yes Status: Resolved resolved Qualifiers: Hypotension type: unspecified hypotension type Qualified Code(s): I95.9 - Hypotension, unspecified (12) GERD (gastroesophageal reflux disease) Current Visit: No Status: Acute PPI therapy Qualifiers: Esophagitis presence: esophagitis presence not specified Qualified Code(s) : K21.9 - Gastro-esophageal reflux disease without esophagitis (13) DVT prophylaxis Current Visit: No Status: Acute Continue heparin 5,000 units SQ twice daily for DVT prophylaxis and EPCDs to bilateral lower extremities while lying in bed Subjective Patient reports: feels better, pain is less, voiding w/o difficulty, flatus, bowel movement, afebrile Objective Vital Signs - Last 8 Hours Temp Pulse Resp BP Pulse Ox 08/25/16 11:53 97.8 F 105 17 121/69 98 08/25/16 09:43 16 95 08/25/16 08:39 96 Intake and Output 08/25/16 08/25/16 08/25/16 07:59 15:59 23:59 Intake Total 300 / 300 240 / 240 Output Total 350 / 350 315 / 315 Balance -50 / -50 -75 / -75 Intake: Oral 300 / 300 240 / 240 Output: Urine 300 / 300 200 / 200 Wound Drainage 50 / 50 115 / 115 Right Lower Abdomen 50 / 50 115 / 115 Other: Weight 122.2 kg Blood Glucose* 117 111 Patient Weight 08/25/16 23:59 Weight 122.2 kg - General physical appearance well developed, well nourished, no distress - Eyes normal ocular movement - ENT normal mucosa, atraumatic, normocephalic - Neck Neck exam: trachea midline - Respiratory normal respiratory effort, clear to auscultation - Cardiovascular Cardiovascular exam: Present: RRR - Abdomen Abdomen: Present: bowel sounds present, soft, tender (less), wound (LIVAN drain to bulb suction with serosanguinous drainage) - Incision Incision: Present: inflamed (2 areas opened and packed due to cellulitis) - Integumentary other (blanchable erythema of back) - Neurologic CN 2-12 grossly intact - Psychiatric oriented to time, oriented to person, oriented to place, speech is normal, memory intact - Labs 08/25/16 09:34 08/25/16 09:34 Diabetes panel 08/24/16 08/24/16 08/25/16 Range/Units 05:24 18:40 09:34 Sodium 148 H (136-145) mEq/L Potassium 2.8 L 2.7 L 2.5 L* (3.5-4.5) mEq/L Chloride 111 H (98-109) mEq/L Carbon Dioxide 26 (19-29) mEq/L BUN 11 (8-26) mg/dL Creatinine 0.93 (0.72-1.25) mg/dL Glucose 183 H (70-99) mg/dL Calcium 8.7 (8.6-10.8) mg/dL Calcium panel 08/25/16 Range/Units 09:34 Calcium 8.7 (8.6-10.8) mg/dL Phosphorus 3.2 (2.3-4.7) mg/dL Pituitary panel 08/24/16 08/24/16 08/25/16 Range/Units 05:24 18:40 09:34 Sodium 148 H (136-145) mEq/L Potassium 2.8 L 2.7 L 2.5 L* (3.5-4.5) mEq/L Chloride 111 H (98-109) mEq/L Carbon Dioxide 26 (19-29) mEq/L BUN 11 (8-26) mg/dL Creatinine 0.93 (0.72-1.25) mg/dL Glucose 183 H (70-99) mg/dL Calcium 8.7 (8.6-10.8) mg/dL Adrenal panel 08/24/16 08/24/16 08/25/16 Range/Units 05:24 18:40 09:34 Sodium 148 H (136-145) mEq/L Potassium 2.8 L 2.7 L 2.5 L* (3.5-4.5) mEq/L Chloride 111 H (98-109) mEq/L Carbon Dioxide 26 (19-29) mEq/L BUN 11 (8-26) mg/dL Creatinine 0.93 (0.72-1.25) mg/dL Glucose 183 H (70-99) mg/dL Calcium 8.7 (8.6-10.8) mg/dL - VTE Documentation of Mechanical Device: Intermittent pneumatic compression device Consult Discharge Plan - Plan Referrals: Natalia Uribe CNP [Advanced Practice Nurse] - 09/12/16 10:15 am <Josette Renae - Last Filed: 08/25/16 16:58> - Assessment and Plan (1) S/P colectomy Current Visit: Yes Status: Acute midline incision opened at bedside by Jojo - seroma, packed advanced diet to fulls - tolerating po pain medication on home meds continue PT (2) GERD (gastroesophageal reflux disease) Current Visit: No Status: Acute Qualifiers: Esophagitis presence: esophagitis presence not specified Qualified Code(s) : K21.9 - Gastro-esophageal reflux disease without esophagitis (3) Type 2 diabetes mellitus Current Visit: No Status: Chronic Qualifiers: Diabetes mellitus complication status: with unspecified complications Diabetes mellitus residential insulin use: without residential use Qualified Code( s): E11.8 - Type 2 diabetes mellitus with unspecified complications Subjective Patient reports: no new complaints, feels better, still having pain, pain is less, tolerating liquids well, voiding w/o difficulty, flatus, bowel movement, afebrile Objective Vital Signs - Last 8 Hours Temp Pulse Resp BP Pulse Ox 08/25/16 11:53 97.8 F 105 17 121/69 98 08/25/16 09:43 16 95 Intake and Output 08/25/16 08/25/16 08/25/16 07:59 15:59 23:59 Intake Total 300 / 300 240 / 240 Output Total 350 / 350 315 / 315 Balance -50 / -50 -75 / -75 Intake: Oral 300 / 300 240 / 240 Output: Urine 300 / 300 200 / 200 Wound Drainage 50 / 50 115 / 115 Right Lower Abdomen 50 / 50 115 / 115 Other: Weight 122.2 kg Blood Glucose* 117 111 Patient Weight 08/25/16 23:59 Weight 122.2 kg - General physical appearance well nourished, no distress, no pain - Eyes PERRL, normal ocular movement - ENT normal mucosa, atraumatic, normocephalic - Neck Neck exam: trachea midline - Respiratory normal expansion, clear to auscultation - Cardiovascular Cardiovascular exam: Present: tachycardia - Abdomen Abdomen: Present: bowel sounds present, soft, tender, wound - Incision Incision: Present: clean and dry, intact - Genitourinary other (scrotal edema) - Integumentary other - Neurologic CN 2-12 grossly intact - Musculoskeletal normal posture - Psychiatric oriented to time, oriented to person, memory intact - Labs 08/25/16 09:34 08/25/16 09:34 Diabetes panel 08/24/16 08/24/16 08/25/16 Range/Units 05:24 18:40 09:34 Sodium 148 H (136-145) mEq/L Potassium 2.8 L 2.7 L 2.5 L* (3.5-4.5) mEq/L Chloride 111 H (98-109) mEq/L Carbon Dioxide 26 (19-29) mEq/L BUN 11 (8-26) mg/dL Creatinine 0.93 (0.72-1.25) mg/dL Glucose 183 H (70-99) mg/dL Calcium 8.7 (8.6-10.8) mg/dL Calcium panel 08/25/16 Range/Units 09:34 Calcium 8.7 (8.6-10.8) mg/dL Phosphorus 3.2 (2.3-4.7) mg/dL Pituitary panel 08/24/16 08/24/16 08/25/16 Range/Units 05:24 18:40 09:34 Sodium 148 H (136-145) mEq/L Potassium 2.8 L 2.7 L 2.5 L* (3.5-4.5) mEq/L Chloride 111 H (98-109) mEq/L Carbon Dioxide 26 (19-29) mEq/L BUN 11 (8-26) mg/dL Creatinine 0.93 (0.72-1.25) mg/dL Glucose 183 H (70-99) mg/dL Calcium 8.7 (8.6-10.8) mg/dL Adrenal panel 08/24/16 08/24/16 08/25/16 Range/Units 05:24 18:40 09:34 Sodium 148 H (136-145) mEq/L Potassium 2.8 L 2.7 L 2.5 L* (3.5-4.5) mEq/L Chloride 111 H (98-109) mEq/L Carbon Dioxide 26 (19-29) mEq/L BUN 11 (8-26) mg/dL Creatinine 0.93 (0.72-1.25) mg/dL Glucose 183 H (70-99) mg/dL Calcium 8.7 (8.6-10.8) mg/dL
[2016-08-25 17:06] LABS: BUN/Creatinine Ratio 12 (6-26); Blood Urea Nitrogen 11 mg/dL (8-26); Calcium 8.5 mg/dL (8.6-10.8); Carbon Dioxide 33 mEq/L (19-29); Chloride 111 mEq/L (98-109); Glucose 120 mg/dL (70-99); Osmolality,Calculated 309 (280-300); Potassium 2.6 mEq/L (3.5-4.5); Sodium 149 mEq/L (136-145); eGFR For African Americans > 60 (> 60); eGFR For Non-African Americans > 60 (> 60)
[2016-08-26] MEDS: Insulin LISPRO 300 UNITS/3 ML VIAL SQ SCH ×4 (00:28→18:29)
[2016-08-26] MEDS: *HR* Heparin 5,000 UNIT/ML VIAL SQ SCH ×3 (00:36→17:07)
[2016-08-26] MEDS: Metoclopramide 10 MG/2 ML VIAL IVP SCH ×4 (00:36→17:08)
[2016-08-26] MEDS: Ipratropium/Albuterol Neb 3 ML IH SCH ×4 (04:05→21:37)
[2016-08-26 05:20] LABS: Basophils # 0.1 K/mcL (0.0-0.2); Basophils % 1.1 %; Eosinophils # 0.7 K/mcL (0.0-0.6); Eosinophils % 10.1 %; Hemoglobin 11.6 g/dL (12.9-16.9); Immature Granulocytes % 2.1 % (0-4); Lymphocytes # 0.8 K/mcL (0.6-4.6); Lymphocytes % 12.3 %; Mean Corpuscular HGB Conc 32.2 g/dL (31.6-35.5); Mean Corpuscular Hemoglobin 27.6 pg (28.0-33.3); Mean Corpuscular Volume 85.7 fL (83.0-100.0); Mean Platelet Volume 9.8 fL (9.4-12.4); Monocytes # 0.4 K/mcL (0.0-1.3); Monocytes % 5.9 %; Neutrophils # 4.6 K/mcL (1.6-8.9); Platelet Count 254 K/mcL (140-400); Red Cell Distribution Width 15.3 % (11.5-14.5); Segmented Neutrophils % 68.5 %
[2016-08-26 05:44] LABS: BUN/Creatinine Ratio 12 (6-26); Blood Urea Nitrogen 10 mg/dL (8-26); Calcium 8.7 mg/dL (8.6-10.8); Carbon Dioxide 30 mEq/L (19-29); Chloride 110 mEq/L (98-109); Glucose 140 mg/dL (70-99); Osmolality,Calculated 309 (280-300); Sodium 149 mEq/L (136-145); eGFR For African Americans > 60 (> 60); eGFR For Non-African Americans > 60 (> 60)
[2016-08-26 06:00] LABS: Potassium 2.5 mEq/L (3.5-4.5)
[2016-08-26] MEDS ORDERED: Potassium Chloride 40 MEQ, Lidocaine 1% 2 ML in D5% in Water 500 ML IVPB ONE ×3 (06:29→12:00)
[2016-08-26] MEDS: Finasteride 5 MG TABLET PO SCH (09:16)
--- NOTE | 2016-08-26 11:54 | General Surgery Progress Note ---
Date of Encounter: 08/26/16 Time of Encounter: 11:00 - Assessment and Plan (1) S/P colectomy Current Visit: Yes Status: Acute midline incision seroma - pack with 1/4 plain packing daily, cover with 4x4 gauze, abds and secure with medipore tape advance to diabetic diet start metformin check magnesium dc planning (2) GERD (gastroesophageal reflux disease) Current Visit: No Status: Acute continue po omeprazone Qualifiers: Esophagitis presence: esophagitis presence not specified Qualified Code(s) : K21.9 - Gastro-esophageal reflux disease without esophagitis (3) Type 2 diabetes mellitus Current Visit: No Status: Chronic diabetic diet, mbs and ssi metformin Qualifiers: Diabetes mellitus complication status: with unspecified complications Diabetes mellitus residential insulin use: without residential use Qualified Code( s): E11.8 - Type 2 diabetes mellitus with unspecified complications (4) Hypokalemia Current Visit: Yes Status: Acute replace with 40 mEq kcl iv 40 po bid repeat K level at 4 check magnesium Subjective Patient reports: no new complaints, feels better, still having pain, pain is less, voiding w/o difficulty, flatus, bowel movement, afebrile Narrative: no nausea complaining of tongue pain Objective Vital Signs - Last 8 Hours Temp Pulse Resp BP Pulse Ox 08/26/16 10:24 98.3 F 62 16 114/73 98 08/26/16 07:08 98.2 F 82 16 118/80 98 08/26/16 05:18 98.7 F 85 14 111/68 97 Intake and Output 08/25/16 08/26/16 08/26/16 23:59 07:59 15:59 Intake Total 720 / 720 1240 / 1240 Output Total 30 30 440 / 440 50 / 50 Balance 690 / 690 800 / 800 -50 / -50 Intake: Oral 720 / 720 1240 / 1240 Output: Urine 400 / 400 Wound Drainage / 30 40 / 40 50 / 50 Right Lower Abdomen 30 / 30 40 / 40 50 / 50 Other: Meal Dinner Percent of Meal Consumed 35% Stool Size Moderate Small Stool Consistency liquid loose Stool Characteristics Kinder Normal for Patient Stool Color Brown Brown Yellow Green # Voids 1 # Urine Diapers 1 # Bowel Movements 1 1 Weight 122.2 kg Blood Glucose* 119 143 Patient Weight 08/26/16 23:59 Weight 122.2 kg - General physical appearance well developed, well nourished, no distress - Eyes PERRL, normal ocular movement - ENT dry mucosa, atraumatic, normocephalic - Neck Neck exam: trachea midline - Respiratory normal expansion, clear to auscultation - Cardiovascular Cardiovascular exam: Present: RRR - Abdomen Abdomen: Present: bowel sounds present, soft, tender (appropriate postop tenderness) - Incision Incision: Present: open (packed, no erythema, serous drainage) - Integumentary no growths - Neurologic CN 2-12 grossly intact - Musculoskeletal normal posture - Psychiatric oriented to time, oriented to person, memory intact - Labs 08/26/16 04:18 08/26/16 04:18 Diabetes panel 08/25/16 08/26/16 Range/Units 16:43 04:18 Sodium 149 H 149 H (136-145) mEq/L Potassium 2.6 L 2.5 L* (3.5-4.5) mEq/L Chloride 111 H 110 H (98-109) mEq/L Carbon Dioxide 33 H 30 H (19-29) mEq/L BUN 11 10 (8-26) mg/dL Creatinine 0.89 0.86 (0.72-1.25) mg/dL Glucose 120 H 140 H (70-99) mg/dL Calcium 8.5 L 8.7 (8.6-10.8) mg/dL Calcium panel 08/25/16 08/26/16 Range/Units 16:43 04:18 Calcium 8.5 L 8.7 (8.6-10.8) mg/dL Pituitary panel 08/25/16 08/26/16 Range/Units 16:43 04:18 Sodium 149 H 149 H (136-145) mEq/L Potassium 2.6 L 2.5 L* (3.5-4.5) mEq/L Chloride 111 H 110 H (98-109) mEq/L Carbon Dioxide 33 H 30 H (19-29) mEq/L BUN 11 10 (8-26) mg/dL Creatinine 0.89 0.86 (0.72-1.25) mg/dL Glucose 120 H 140 H (70-99) mg/dL Calcium 8.5 L 8.7 (8.6-10.8) mg/dL Adrenal panel 01/05/17 01/06/17 Range/Units 16:43 04:18 Sodium 149 H 149 H (136-145) mEq/L Potassium 2.6 L 2.5 L* (3.5-4.5) mEq/L Chloride 111 H 110 H (98-109) mEq/L Carbon Dioxide 33 H 30 H (19-29) mEq/L BUN 11 10 (8-26) mg/dL Creatinine 0.89 0.86 (0.72-1.25) mg/dL Glucose 120 H 140 H (70-99) mg/dL Calcium 8.5 L 8.7 (8.6-10.8) mg/dL - VTE Documentation of Mechanical Device: Intermittent pneumatic compression device Consult Discharge Plan - Plan Referrals: Natalia Uribe CNP [Advanced Practice Nurse] - 09/12/16 10:15 am
--- NOTE | 2016-08-26 12:01 | Discharge Summary ---
<Josette Renae - Last Filed: 08/26/16 12:14> Date of Encounter: 08/27/16 Time of Encounter: 12:00 - Discharge Diagnosis (1) S/P colectomy Priority: Primary Status: Acute (2) GERD (gastroesophageal reflux disease) Priority: Secondary Status: Chronic Qualifiers: Esophagitis presence: esophagitis presence not specified Qualified Code(s) : K21.9 - Gastro-esophageal reflux disease without esophagitis (3) Type 2 diabetes mellitus Priority: Secondary Status: Chronic Qualifiers: Diabetes mellitus complication status: with unspecified complications Diabetes mellitus shelter insulin use: without shelter use Qualified Code( s): E11.8 - Type 2 diabetes mellitus with unspecified complications (4) Hypokalemia Priority: Secondary Status: Acute - Discharge Medications Prescriptions: OxyCODONE/APAP 5/325 [Percocet 5/325 MG] 1 each PO Q6HR PRN #30 tablet PRN Reason: Pain Docusate [Colace] 100 mg PO BID #30 capsule Nystatin [Nystatin Suspension] 100,000 units PO QID #120 ml Potassium Chloride 40 meq PO DAILY #30 tab.er.prt Home Medications: Acetaminophen [Tylenol] 500 mg PO Q6HR PRN 05/05/16 [History] Atenolol [Tenormin] 25 mg PO DAILY 05/05/16 [History] Cholecalciferol (D-3) [Vitamin D] 2,000 unit PO DAILY 05/05/16 [History] Cyanocobalamin (Vitamin B-12) [Vitamin B12] 1,000 mcg PO DAILY 05/05/16 [History ] Desoximetasone 1 appl TP BID 05/05/16 [History] Docusate [Colace] 200 mg PO TID 05/05/16 [History] Finasteride [Proscar] 5 mg PO DAILY 05/05/16 [History] Furosemide [Lasix] 40 mg PO DAILY PRN 05/05/16 [History] Lactobacillus Acidophilus [Acidophilus Probiotic] 1 mg PO DAILY 05/05/16 [ History] Metformin HCl [Metformin HCl ER] 750 mg PO QPM 05/05/16 [History] Potassium Chloride [K-Tab ER] 20 meq PO DAILY 05/05/16 [History] Tamsulosin [Flomax] 0.4 mg PO DAILY 05/05/16 [History] MetroNIDAZOLE [Flagyl] 500 mg PO TID 08/18/16 [History] Minocycline HCl [Minocin] 100 mg PO DAILY 08/18/16 [History] Sulfamethoxazole/Trimeth DS [Bactrim Ds] 1 each PO BID 08/18/16 [History] Docusate [Colace] 100 mg PO BID #30 capsule 08/26/16 [Rx] Nystatin [Nystatin Suspension] 100,000 units PO QID #120 ml 08/26/16 [Rx] OxyCODONE/APAP 5/325 [Percocet 5/325 MG] 1 each PO Q6HR PRN #30 tablet 08/26/16 [Rx] Potassium Chloride 40 meq PO DAILY #30 tab.er.prt 08/26/16 [Rx] Allergies/Adverse Reactions: Allergies Amoxicillin [From Augmentin] Allergy (Verified 08/18/16 07:31) Hives clavulanic acid [From Augmentin] Allergy (Verified 08/18/16 07:31) Hives codeine Allergy (Verified 08/18/16 07:31) Nausea,Chest Pain Latex, Natural Rubber Allergy (Verified 08/18/16 07:31) Itching, meperidine [From Demerol] Allergy (Verified 08/18/16 07:31) Hives, Chest Pain tetanus immune globulin Allergy (Verified 08/18/16 07:31) Hives General Surgery Exam Initial Vital Signs Temp Pulse Resp BP Pulse Ox 98.8 F 93 18 130/83 95 08/18/16 06:47 08/18/16 06:47 08/18/16 06:47 08/18/16 06:47 08/18/16 06:47 - General physical appearance well developed, well nourished, no distress, no pain - Eyes PERRL, normal ocular movement - ENT normal mucosa, atraumatic, normocephalic - Neck trachea midline - Respiratory normal respiratory effort, clear to auscultation - Cardiovascular Cardiovascular exam: Present: RRR - Abdomen Abdomen general surgery: Present: bowel sounds present, soft, tender ( appropriate) - Incision Incision: Present: clean and dry, intact, open (packed). Absent: red, erythema - Integumentary Integumentary general surgery: Present: no abnormal pigmentation - Neurologic Present: CN 2-12 grossly intact - Musculoskeletal Present: normal gait, normal posture - Psychiatric Psychiatric general surgery: Present: A&Ox3, speech is normal Date of admission: 08/18/16 15:35 Primary care physician: Gerard Townsend MD Consults: 08/22/16 13:11 Consult to Occupational Therapy [CONS] Routine Comment: Evaluate, develop and implement POC Consult to Physical Therapy [CONS] Routine Comment: Evaluate, develop and implement POC Discharging clinician: Josette Renae Anticipated date of discharge: 08/27/16 - Patient Status Disposition: Home Health Service Condition: Good Functional capacity at discharge: uses cane/walker Overall status at discharge: patient is progressing back to baseline - Discharge Instructions Follow Up With: Natalia Uribe CNP [Advanced Practice Nurse] - 09/12/16 10:15 am Josette Renae MD [Partnered Physician] - 08/31/16 11:05 am Additional Instructions: wash midline incision with soap and water daily, pack both midline open wounds with 1/4" plain packing (much gets packed), cover with 4x4 gauze, ABD and secure with medipore tape, change daily outside wound 4x4 gauze, ABD pad and medipore tape can be changed prn soilage RLQ LIVAN drain site, wash with soap and water daily, pack with 1/4" plain packing, cover with 4x4 gauze and secure with medipore tape. home care should check your potassium and magnesium every other day for 10 days ok to shower no tub baths ok to climb steps ok to ride in a car with seatbelt, no driving ok to participate with PT/OT - Diet and Activity Activity: increase activity as tolerated Diet: diabetic diet - Hospital Course Hospital course: Mr. Hilario is a 75 year old male who underwent a robotic to open sigmoid colectomy. Postoperative course mostly uneventful. Patient had symptoms consistent with parotitis and was treated with abx, warm compresses and hard candy. He developed a rash presumably to the clindamycin, which was stopped. He had a several day postoperative ileus which is an expected potential course. He developed a midline wound seroma which was opened at bedside and packed. He was started on a diet and advanced slowly. He is ambulating and up in a chair. PT recommends home PT at discharge. He is having appropriate bowel and bladder function. He is discharged home in stable condition. He will have home wound care to pack his midline daily. Home PT. He - Time Spent with Patient Total time spent providing and/or coordinating discharge services: Less than 30 minutes Labs on day of discharge: Labs from last 24 hours 08/26/16 08/26/16 08/26/16 05:16 04:18 04:18 WBC 6.6 RBC 4.20 Hgb 11.6 L Hct 36.0 L MCV 85.7 MCH 27.6 L MCHC 32.2 RDW 15.3 H Plt Count 254 MPV 9.8 Immature Gran % 2.1 Seg Neutrophils % 68.5 Lymphocytes % 12.3 Monocytes % 5.9 Eosinophils % 10.1 Basophils % 1.1 Neutrophils # 4.6 Lymphocytes # 0.8 Monocytes # 0.4 Eosinophils # 0.7 H Basophils # 0.1 Sodium 149 H Potassium 2.5 L* Chloride 110 H Carbon Dioxide 30 H BUN 10 Creatinine 0.86 Est GFR ( Amer) > 60 Est GFR (Non-Af Amer) > 60 BUN/Creatinine Ratio 12 Glucose 140 H POC Glucose 143 H Calculated Osmolality 309 H Calcium 8.7 08/25/16 08/25/16 08/25/16 23:14 16:51 16:43 WBC RBC Hgb Hct MCV MCH MCHC RDW Plt Count MPV Immature Gran % Seg Neutrophils % Lymphocytes % Monocytes % Eosinophils % Basophils % Neutrophils # Lymphocytes # Monocytes # Eosinophils # Basophils # Sodium 149 H Potassium 2.6 L Chloride 111 H Carbon Dioxide 33 H BUN 11 Creatinine 0.89 Est GFR ( Amer) > 60 Est GFR (Non-Af Amer) > 60 BUN/Creatinine Ratio 12 Glucose 120 H POC Glucose 119 H 104 H Calculated Osmolality 309 H Calcium 8.5 L 08/25/16 11:38 WBC RBC Hgb Hct MCV MCH MCHC RDW Plt Count MPV Immature Gran % Seg Neutrophils % Lymphocytes % Monocytes % Eosinophils % Basophils % Neutrophils # Lymphocytes # Monocytes # Eosinophils # Basophils # Sodium Potassium Chloride Carbon Dioxide BUN Creatinine Est GFR ( Amer) Est GFR (Non-Af Amer) BUN/Creatinine Ratio Glucose POC Glucose 111 H Calculated Osmolality Calcium - Impressions ITS Impressions Chest X-Ray 08/20/16 15:29 IMPRESSION: 1. Bibasilar atelectasis. 2. No visualization of the patient's previous is seen cervical spine hardware, possibly related to overlying soft tissues. D/ / Crescencio Siddiqui MD / Crescencio Siddiqui MD Interpreting Provider: Crescencio Siddiqui MD Abdomen/Pelvis CT 08/22/16 13:10 IMPRESSION: 1. Status post partial colectomy. The anastomosis is unremarkable without evidence of leak. The upstream colon demonstrates gaseous distension and air-fluid levels. Findings may represent a postoperative colonic ileus. 2. Hepatic steatosis. D/ / 08/22/2016 15:00:45 Laura Grier MD / sheng Interpreting Provider: Laura Grier MD <Natalia Uribe - Last Filed: 08/26/16 13:31> - Discharge Diagnosis (1) Diverticular disease Status: Acute Qualifiers: Diverticulosis site: diverticulosis of large intestine Diverticulosis bleeding: diverticulosis without bleeding Qualified Code(s): K57.30 - Diverticulosis of large intestine without perforation or abscess without bleeding (2) Type 2 diabetes mellitus Status: Chronic Qualifiers: Diabetes mellitus complication status: with unspecified complications Diabetes mellitus shelter insulin use: without shelter use Qualified Code( s): E11.8 - Type 2 diabetes mellitus with unspecified complications (3) Postoperative ileus Status: Acute (4) Hypokalemia Status: Acute (5) Hypernatremia Status: Acute (6) DVT prophylaxis Status: Acute General Surgery Exam Initial Vital Signs Temp Pulse Resp BP Pulse Ox 98.8 F 93 18 130/83 95 08/18/16 06:47 08/18/16 06:47 08/18/16 06:47 08/18/16 06:47 08/18/16 06:47 Date of admission: 08/18/16 15:35 Primary care physician: Gerard Townsend MD Consults: 08/22/16 13:11 Consult to Occupational Therapy [CONS] Routine Comment: Evaluate, develop and implement POC Consult to Physical Therapy [CONS] Routine Comment: Evaluate, develop and implement POC 08/26/16 12:12 Consult to Break Off Worker [CONS] Routine Reason for SW Consult: home care for daily wound care/dressing changes need home PT - Hospital Course Hospital course: Mr. Hilario is a 75 year old male - Time Spent with Patient Total time spent providing and/or coordinating discharge services: Labs on day of discharge: Labs from last 24 hours 08/26/16 08/26/16 08/26/16 12:05 05:16 04:18 WBC RBC Hgb Hct MCV MCH MCHC RDW Plt Count MPV Immature Gran % Seg Neutrophils % Lymphocytes % Monocytes % Eosinophils % Basophils % Neutrophils # Lymphocytes # Monocytes # Eosinophils # Basophils # Sodium 149 H Potassium 2.5 L* Chloride 110 H Carbon Dioxide 30 H BUN 10 Creatinine 0.86 Est GFR ( Amer) > 60 Est GFR (Non-Af Amer) > 60 BUN/Creatinine Ratio 12 Glucose 140 H POC Glucose 115 H 143 H Calculated Osmolality 309 H Calcium 8.7 Magnesium Pending 08/26/16 08/25/16 08/25/16 04:18 23:14 16:51 WBC 6.6 RBC 4.20 Hgb 11.6 L Hct 36.0 L MCV 85.7 MCH 27.6 L MCHC 32.2 RDW 15.3 H Plt Count 254 MPV 9.8 Immature Gran % 2.1 Seg Neutrophils % 68.5 Lymphocytes % 12.3 Monocytes % 5.9 Eosinophils % 10.1 Basophils % 1.1 Neutrophils # 4.6 Lymphocytes # 0.8 Monocytes # 0.4 Eosinophils # 0.7 H Basophils # 0.1 Sodium Potassium Chloride Carbon Dioxide BUN Creatinine Est GFR ( Amer) Est GFR (Non-Af Amer) BUN/Creatinine Ratio Glucose POC Glucose 119 H 104 H Calculated Osmolality Calcium Magnesium 08/25/16 16:43 WBC RBC Hgb Hct MCV MCH MCHC RDW Plt Count MPV Immature Gran % Seg Neutrophils % Lymphocytes % Monocytes % Eosinophils % Basophils % Neutrophils # Lymphocytes # Monocytes # Eosinophils # Basophils # Sodium 149 H Potassium 2.6 L Chloride 111 H Carbon Dioxide 33 H BUN 11 Creatinine 0.89 Est GFR ( Amer) > 60 Est GFR (Non-Af Amer) > 60 BUN/Creatinine Ratio 12 Glucose 120 H POC Glucose Calculated Osmolality 309 H Calcium 8.5 L Magnesium - Impressions ITS Impressions Chest X-Ray 08/20/16 15:29 IMPRESSION: 1. Bibasilar atelectasis. 2. No visualization of the patient's previous is seen cervical spine hardware, possibly related to overlying soft tissues. D/ / Crescencio Siddiqui MD / Crescencio Siddiqui MD Interpreting Provider: Crescencio Siddiqui MD Abdomen/Pelvis CT 08/22/16 13:10 IMPRESSION: 1. Status post partial colectomy. The anastomosis is unremarkable without evidence of leak. The upstream colon demonstrates gaseous distension and air-fluid levels. Findings may represent a postoperative colonic ileus. 2. Hepatic steatosis. D/ / 08/22/2016 15:00:45 Laura Grier MD / sheng Interpreting Provider: Laura Grier MD <Vanessa Small - Last Filed: 08/27/16 11:20> Date of Encounter: 08/27/16 Time of Encounter: 11:20 - Discharge Diagnosis (1) S/P colectomy Priority: Primary Status: Acute (2) Hypokalemia Priority: Secondary Status: Acute (3) Hypernatremia Priority: Secondary Status: Resolved (4) Postoperative ileus Priority: Secondary Status: Resolved (5) Tachycardia Priority: Secondary Status: Acute (6) Type 2 diabetes mellitus Priority: Secondary Status: Chronic Qualifiers: Diabetes mellitus complication status: with unspecified complications Diabetes mellitus ferry terminal supervisor insulin use: without ferry terminal supervisor use Qualified Code( s): E11.8 - Type 2 diabetes mellitus with unspecified complications (7) Rash Priority: Secondary Status: Acute (8) Parotid discomfort Priority: Secondary Status: Resolved (9) Leukocytosis Priority: Secondary Status: Resolved Qualifiers: Leukocytosis type: unspecified Qualified Code(s): D72.829 - Elevated white blood cell count, unspecified (10) Acute kidney injury Priority: Secondary Status: Resolved (11) Hypotension Priority: Secondary Status: Resolved Qualifiers: Hypotension type: unspecified hypotension type Qualified Code(s): I95.9 - Hypotension, unspecified (12) GERD (gastroesophageal reflux disease) Priority: Secondary Status: Chronic Qualifiers: Esophagitis presence: esophagitis presence not specified Qualified Code(s) : K21.9 - Gastro-esophageal reflux disease without esophagitis (13) DVT prophylaxis Priority: Secondary Status: Acute General Surgery Exam Initial Vital Signs Temp Pulse Resp BP Pulse Ox 98.8 F 93 18 130/83 95 08/18/16 06:47 08/18/16 06:47 08/18/16 06:47 08/18/16 06:47 08/18/16 06:47 - General physical appearance well developed, well nourished, no distress - Eyes normal ocular movement - ENT normal mucosa, atraumatic, normocephalic - Neck trachea midline - Respiratory normal respiratory effort, clear to auscultation - Cardiovascular Cardiovascular exam: Present: RRR - Abdomen Abdomen general surgery: Present: bowel sounds present, soft, tender - Incision Incision: Present: open (dressing in place) - Integumentary Integumentary general surgery: Present: warm and dry - Neurologic Present: CN 2-12 grossly intact - Musculoskeletal Present: normal posture - Psychiatric Psychiatric general surgery: Present: A&Ox3, speech is normal, memory intact Date of admission: 08/18/16 15:35 Primary care physician: Gerard Townsend MD Consults: 08/22/16 13:11 Consult to Occupational Therapy [CONS] Routine Comment: Evaluate, develop and implement POC Consult to Physical Therapy [CONS] Routine Comment: Evaluate, develop and implement POC 08/26/16 12:12 Consult to Break Off Worker [CONS] Routine Reason for SW Consult: home care for daily wound care/dressing changes need home PT Discharging clinician: Vanessa Small Anticipated date of discharge: 08/27/16 - Patient Status Overall status at discharge: patient is progressing back to baseline - Diet and Activity Diet: advance to your usual diet - Hospital Course Hospital course: Mr. Hilario is a 75 year old male admitted to the hospital for surgery due to diverticular disease on 08/18/2016. He had a robotic to open sigmoid colectomy perfomed by Dr. Renae. He had an acute kidney injury that was resolved after surgery with IV fluids. He did develop some parotid discomfort after surgery which was treated briefly with clindamycin. The clindamycin was stopped due to a rash. The rash was treated with Benadryl and resolved in the next couple of days. He also developed tachycardia postop - EKG showed sinus tachycardia and he had a troponin of 0.01. He was started on sips of fluid on postop day 5. His diet was advanced as tolerated as he prepared for discharge. He developed midline incision seromas, these were packed and the incision was dressed with 4 x 4 gauze abdominal pads and secured with Medipore tape. He is being discharged home with home wound care that will pack and change his dressings daily. - Time Spent with Patient Total time spent providing and/or coordinating discharge services: Labs on day of discharge: Labs from last 24 hours 08/27/16 08/27/16 08/27/16 05:09 04:40 00:13 Sodium Potassium 2.8 L Chloride Carbon Dioxide BUN Creatinine Est GFR ( Amer) Est GFR (Non-Af Amer) BUN/Creatinine Ratio Glucose POC Glucose 124 H 105 H Calculated Osmolality Calcium Magnesium 1.3 L 08/26/16 08/26/16 08/26/16 17:21 15:49 12:05 Sodium Potassium 2.8 L Chloride Carbon Dioxide BUN Creatinine Est GFR ( Amer) Est GFR (Non-Af Amer) BUN/Creatinine Ratio Glucose POC Glucose 116 H 115 H Calculated Osmolality Calcium Magnesium 08/26/16 04:18 Sodium 149 H Potassium 2.5 L* Chloride 110 H Carbon Dioxide 30 H BUN 10 Creatinine 0.86 Est GFR ( Amer) > 60 Est GFR (Non-Af Amer) > 60 BUN/Creatinine Ratio 12 Glucose 140 H POC Glucose Calculated Osmolality 309 H Calcium 8.7 Magnesium 1.1 L - Impressions ITS Impressions Chest X-Ray 08/20/16 15:29 IMPRESSION: 1. Bibasilar atelectasis. 2. No visualization of the patient's previous is seen cervical spine hardware, possibly related to overlying soft tissues. D/ / Crescencio Siddiqui MD / Crescencio Siddiqui MD Interpreting Provider: Crescencio Siddiqui MD Abdomen/Pelvis CT 08/22/16 13:10 IMPRESSION: 1. Status post partial colectomy. The anastomosis is unremarkable without evidence of leak. The upstream colon demonstrates gaseous distension and air-fluid levels. Findings may represent a postoperative colonic ileus. 2. Hepatic steatosis. D/ / 08/22/2016 15:00:45 Laura Grier MD / sheng Interpreting Provider: Laura Grier MD <David Diaz T - Last Filed: 08/28/16 12:24> General Surgery Exam Initial Vital Signs Temp Pulse Resp BP Pulse Ox 98.8 F 93 18 130/83 95 08/18/16 06:47 08/18/16 06:47 08/18/16 06:47 08/18/16 06:47 08/18/16 06:47 Date of admission: 08/18/16 15:35 Primary care physician: Gerard Townsend MD Consults: 08/22/16 13:11 Consult to Occupational Therapy [CONS] Routine Comment: Evaluate, develop and implement POC Consult to Physical Therapy [CONS] Routine Comment: Evaluate, develop and implement POC 08/26/16 12:12 Consult to Break Off Worker [CONS] Routine Reason for SW Consult: home care for daily wound care/dressing changes need home PT - Hospital Course Hospital course: Mr. Hilario is a 75 year old male - Time Spent with Patient Total time spent providing and/or coordinating discharge services: - Impressions ITS Impressions Chest X-Ray 08/20/16 15:29 IMPRESSION: 1. Bibasilar atelectasis. 2. No visualization of the patient's previous is seen cervical spine hardware, possibly related to overlying soft tissues. D/ / Crescencio Siddiqui MD / Crescencio Siddiqui MD Interpreting Provider: Crescencio Siddiqui MD Abdomen/Pelvis CT 08/22/16 13:10 IMPRESSION: 1. Status post partial colectomy. The anastomosis is unremarkable without evidence of leak. The upstream colon demonstrates gaseous distension and air-fluid levels. Findings may represent a postoperative colonic ileus. 2. Hepatic steatosis. D/ / 08/22/2016 15:00:45 Laura Grier MD / sheng Interpreting Provider: Laura Grier MD - Attending Attestation I examined this patient and my medical decision-making was reviewed with the [employer]/PA/Advanced Practice Nurse/Resident Physician. I agree with the documented findings, disposition and treatment plan as described except to the extent set forth below. David Diaz MD FACS
[2016-08-26] MEDS: Nystatin SUSP 5 ML UD.LIQ PO SCH ×3 (12:03→21:04)
[2016-08-26] MEDS: Furosemide 40 MG TABLET PO SCH (12:07)
[2016-08-26 13:33] LABS: Magnesium 1.1 mg/dL (1.6-2.6)
--- NOTE | 2016-08-26 13:38 | Physician Discharge Referral ---
Home Health/Hosp Referral Info Transfer to: Home Health Attending Provider: Dr. Josette Renae Provider in Charge Post Discharge: Other (Dr. Renae) - Diagnosis (1) Diverticular disease Priority: Primary Status: Resolved (2) Type 2 diabetes mellitus Priority: Secondary Status: Chronic (3) Postoperative ileus Priority: Secondary Status: Resolved (4) Hypokalemia Priority: Secondary Status: Acute (5) Hypernatremia Priority: Secondary Status: Resolved (6) DVT prophylaxis Priority: Secondary Status: Acute - Respiratory Orders Oxygen / L per min (2L per nasal cannula QHS) - Dressing/Wound Care Site: #1 Midline incision #2- RLQ drain site Type of Dressing/Treatments w/Frequency: wash midline incision with soap and water daily, pack both midline open wounds with 1/4" plain packing (much gets packed), cover with 4x4 gauze, ABD and secure with medipore tape, change daily outside wound 4x4 gauze, ABD pad and medipore tape can be changed prn soilage RLQ LIVAN drain site, wash with soap and water daily, pack with 1/4" plain packing, cover with 4x4 gauze and secure with medipore tape. - Diet/Nutrition Diet/Nutrition Orders: Regular (Diabetic diet) - Activity Activity Orders: Up ad manpreet, Ambulate, Walker (Rx written) Activity: List: ok to shower no tub baths ok to climb steps no lifting/pushing/pulling greater than 15 lb. X 6 weeks ok to ride in a car with seatbelt, no driving ok to participate with PT/OT - Services Needed Following services are medically necessary services: Nursing, Physical Therapy, Occupational Therapy Home Care Orders: wash midline incision with soap and water daily, pack both midline open wounds with 1/4" plain packing (much gets packed), cover with 4x4 gauze, ABD and secure with medipore tape, change daily outside wound 4x4 gauze, ABD pad and medipore tape can be changed prn soilage RLQ LIVAN drain site, wash with soap and water daily, pack with 1/4" plain packing, cover with 4x4 gauze and secure with medipore tape. home care should check your potassium and magnesium every other day for 10 days ok to participate with PT/OT- evaluate and treat - Transfer Medications Prescriptions: OxyCODONE/APAP 5/325 [Percocet 5/325 MG] 1 each PO Q6HR PRN #30 tablet PRN Reason: Pain Docusate [Colace] 100 mg PO BID #30 capsule Nystatin [Nystatin Suspension] 100,000 units PO QID #120 ml Potassium Chloride 40 meq PO DAILY #30 tab.er.prt Home Medications: Acetaminophen [Tylenol] 500 mg PO Q6HR PRN 05/05/16 [History] Atenolol [Tenormin] 25 mg PO DAILY 05/05/16 [History] Cholecalciferol (D-3) [Vitamin D] 2,000 unit PO DAILY 05/05/16 [History] Cyanocobalamin (Vitamin B-12) [Vitamin B12] 1,000 mcg PO DAILY 05/05/16 [History ] Desoximetasone 1 appl TP BID 05/05/16 [History] Docusate [Colace] 200 mg PO TID 05/05/16 [History] Finasteride [Proscar] 5 mg PO DAILY 05/05/16 [History] Furosemide [Lasix] 40 mg PO DAILY PRN 05/05/16 [History] Lactobacillus Acidophilus [Acidophilus Probiotic] 1 mg PO DAILY 05/05/16 [ History] Metformin HCl [Metformin HCl ER] 750 mg PO QPM 05/05/16 [History] Potassium Chloride [K-Tab ER] 20 meq PO DAILY 05/05/16 [History] Tamsulosin [Flomax] 0.4 mg PO DAILY 05/05/16 [History] MetroNIDAZOLE [Flagyl] 500 mg PO TID 08/18/16 [History] Minocycline HCl [Minocin] 100 mg PO DAILY 08/18/16 [History] Sulfamethoxazole/Trimeth DS [Bactrim Ds] 1 each PO BID 08/18/16 [History] Docusate [Colace] 100 mg PO BID #30 capsule 08/26/16 [Rx] Nystatin [Nystatin Suspension] 100,000 units PO QID #120 ml 08/26/16 [Rx] OxyCODONE/APAP 5/325 [Percocet 5/325 MG] 1 each PO Q6HR PRN #30 tablet 08/26/16 [Rx] Potassium Chloride 40 meq PO DAILY #30 tab.er.prt 08/26/16 [Rx] Allergies/Adverse Reactions: Allergies Amoxicillin [From Augmentin] Allergy (Verified 08/18/16 07:31) Hives clavulanic acid [From Augmentin] Allergy (Verified 08/18/16 07:31) Hives codeine Allergy (Verified 08/18/16 07:31) Nausea,Chest Pain Latex, Natural Rubber Allergy (Verified 08/18/16 07:31) Itching, meperidine [From Demerol] Allergy (Verified 08/18/16 07:31) Hives, Chest Pain tetanus immune globulin Allergy (Verified 08/18/16 07:31) Hives Certification: Further, I certify that my clinical findings support that this patient is homebound (i.e. absences from home require considerable and taxing effort and are for medical reasons or baptism services or infrequently or short duration when for other reasons) because: Homebound Reason: Patient requires assistance of a person or device to safely leave home, Post-surgery restriction and or conditions limit ability to leave home, Leaving home requires considerable and taxing effort due to condition Attestation: My signature below is to certify that this patient is under my care and that I, or nurse practitioner, or a physician's assistant broker working with me, has a face-to -face encounter with this patient.
[2016-08-26] MEDS ORDERED: METFORMIN HCL 750 MG PO SCH (18:00)
[2016-08-26] MEDS ORDERED: Magnesium Sulfate 2 GM in D5% in Water 100 ML IVPB ONE (18:08)
[2016-08-26] MEDS ORDERED: Magnesium Sulfate 1 GM in D5% in Water 100 ML IVPB ONE (18:10)
[2016-08-27] MEDS: Insulin LISPRO 300 UNITS/3 ML VIAL SQ SCH ×2 (01:15→05:39)
[2016-08-27] MEDS: Metoclopramide 10 MG/2 ML VIAL IVP SCH ×2 (01:16→05:45)
[2016-08-27] MEDS: *HR* Heparin 5,000 UNIT/ML VIAL SQ SCH ×2 (01:16→08:32)
[2016-08-27] MEDS: Ipratropium/Albuterol Neb 3 ML IH SCH ×2 (03:59→10:10)
[2016-08-27 05:29] LABS: Magnesium 1.3 mg/dL (1.6-2.6); Potassium 2.8 mEq/L (3.5-4.5)
[2016-08-27] MEDS: Nystatin SUSP 5 ML UD.LIQ PO SCH (08:32)
[2016-08-27] MEDS: Finasteride 5 MG TABLET PO SCH (08:32)
[2016-08-27] MEDS: Furosemide 40 MG TABLET PO SCH (08:32)
[2016-08-27] MEDS ORDERED: Magnesium Sulfate 2 GM in D5% in Water 100 ML IVPB ONE (09:48)
[2016-08-27 10:55] VITALS: BP 118/72
== END 2016-08-27 12:16 | disposition home health service (06) | DRG 330 ==
LOC: SAMDAY 06:18 → 3ANU 15:35
PROVIDERS: ADMIT Surgery; ATTEND Surgery

== ENCOUNTER 2017-01-02 12:43 | Inpatient (IN) ==
[2017-01-02] MEDS ORDERED: Lidocaine -MPF 1% 2 ML VIAL ID ONE (13:04)
[2017-01-02] MEDS ORDERED: Clindamycin 900 MG/50 ML 900 MG/50 ML IV.SOLN IVPB ONE (13:04)
[2017-01-02] MEDS ORDERED: Ringers Solution, Lactated 1,000 ML IVC SCH (13:15)
[2017-01-02] MEDS ORDERED: *HR* FentaNYL (PF) 100 MCG/2 ML VIAL ONE (13:22)
[2017-01-02] MEDS ORDERED: *HR* Midazolam HCl 2 MG/2 ML VIAL ONE (13:22)
[2017-01-02] MEDS ORDERED: Lidocaine -MPF 2% 2 ML VIAL ONE (13:22)
[2017-01-02] MEDS ORDERED: *HR* Propofol 200 MG/20 ML VIAL IVP ONE (13:24)
--- NOTE | 2017-01-02 13:31 | History & Physical Report ---
Date of Encounter: 01/02/17 Time of Encounter: 13:30 24 Hour HP Update - Instructions Instructions: If the History and Physical is less than 30 days old and was completed prior to A.M. admission and or procedure and has NOT been updated on calendar day of procedure please complete this update prior to performing procedure. - Update Patient reports changes in Medical Condition: No Changes in examination, assessment, or condition: No Changes in Medication: No Surgery Remains Indicated: Yes Consent for Planned Operative Procedure(s) Verified: Yes - Pre-Operative Checklist Prophylactic Antibiotic Ordered: Yes Home Medications Include Beta Ragini: Yes Is VTE Prophylaxis Indicated?: Yes
--- NOTE | 2017-01-02 13:36 | Anesthesia Evaluation PreOp ---
Date of Encounter: 01/02/17 Time of Encounter: 13:34 - Past History Planned Operation: removal infected mesh Cardiac History: HTN, Other (3.8 cm Thoracic aneurysm) Pulmonary History: CHAS Dx (uses CPAP) Other Medical History: Renal (BPH), Diabetes Type II, GERD, Other (Morbid obesity with BMI 43) Anesthesia History: No Prior Anesthetic Complications, Past Anesthesia ( multiple orthopedic surgery, laminectomy, bowel resection, TMJ surgery Had surgery 08-05, was easy intubation with MAC3,) Alcohol Use: none Drug use: none Medications and Allergies Atenolol [Tenormin] 25 mg PO DAILY 05/05/16 [History] Cholecalciferol (D-3) [Vitamin D] 2,000 unit PO DAILY 05/05/16 [History] Cyanocobalamin (Vitamin B-12) [Vitamin B12] 1,000 mcg PO DAILY 05/05/16 [History ] Docusate [Colace] 200 mg PO DAILY 05/05/16 [History] Finasteride [Proscar] 5 mg PO DAILY 05/05/16 [History] Furosemide [Lasix] 40 mg PO DAILY PRN 05/05/16 [History] Potassium Chloride [K-Tab ER] 20 meq PO DAILY 05/05/16 [History] Tamsulosin [Flomax] 0.4 mg PO DAILY 05/05/16 [History] Minocycline HCl [Minocin] 100 mg PO DAILY 08/18/16 [History] Acetaminophen [Tylenol] 1,000 mg PO BID 01/02/17 [History] [place]-3/Dha/Epa/Fish Oil [Fish Oil 1,000 mg Softgel] 1,000 mg PO DAILY 01/02/17 [History] Omeprazole [PriLOSEC] 40 mg PO DAILY 01/02/17 [History] Ondansetron HCl [Zofran] 4 mg PO Q6H PRN 01/02/17 [History] Triamcinolone Acet 0.1% CRM [Kenalog] 1 appl TP BID PRN 01/02/17 [History] Allergies Amoxicillin [From Augmentin] Allergy (Verified 08/18/16 07:31) Hives clavulanic acid [From Augmentin] Allergy (Verified 08/18/16 07:31) Hives codeine Allergy (Verified 08/18/16 07:31) Nausea,Chest Pain Latex, Natural Rubber Allergy (Verified 08/18/16 07:31) Itching, meperidine [From Demerol] Allergy (Verified 08/18/16 07:31) Hives, Chest Pain tetanus immune globulin Allergy (Verified 08/18/16 07:31) Hives - Meds/Allergy Pre-op Review Medications Reviewed: Yes Allergies Reviewed: Yes Beta Blockers on Current Med List: Yes If Beta Blockers taken, Date/Time (Last Dose taken): this morning about 6am Anesthesia Results - Labs Laboratory Tests 12/27/16 12/27/16 12/27/16 14:53 14:53 14:53 Hgb 14.7 Hct 44.3 Plt Count 169 Sodium 141 Potassium 4.3 BUN 16 Creatinine 0.95 Hemoglobin A1c 5.8 H - Imaging Additional studies: latex allergy testing negative Anesthesia Exam - HEENT Pupil (Motor): EOMI Mallampati: III Teeth: Normal (lower), Edentulous (upper) Oral Opening: Greater than 3 - DISABILITY PROGRAM NAVIGATOR LOC: Oriented DISABILITY PROGRAM NAVIGATOR Motor: Normal RUE, Normal LUE, Normal RLE, Normal LLE, Normal Face DISABILITY PROGRAM NAVIGATOR Sensory: Normal: RUE, LUE, RLE, LLE, Face - Cardiac Rhythm: Regular Murmur: None - Pulmonary Breath Sounds: bilateral Clear Respiratory Effort: Symmetrical Anesthesia Assess/Plan ASA Score: 3 Modified [place] Scale for Level of Consciousness: Cooperative, oriented, and tranquil Anesthetic Plan: General Monitoring Plan: Standard Monitors Recovery Plan: PACU (Discussed risks of GA, questions answered and agrees to proceed)
[2017-01-02] MEDS ORDERED: *HR* Morphine 2 MG/ML SYRINGE IVP PRN ×2 (14:53→16:36)
[2017-01-02] MEDS ORDERED: Ondansetron 4 MG/2 ML VIAL IVP ONE (14:53)
[2017-01-02] MEDS ORDERED: Neostigmine Methylsulfate 3 MG/3 ML SYRINGE ONE (15:19)
--- NOTE | 2017-01-02 15:43 | Operative Note ---
Date of procedure: 01/02/17 Pre-op diagnosis: infected mesh Post-op diagnosis: same Procedure: Exploratory laparotomy and removal of infected mesh Complications: none immediate Anesthesia: GETA, local Local Anesthetics: 0.5% Sensorcaine HCL SubQ (cc) Surgeon: Josette Renae Aircraft Sales Representative: Anegla Winkler Estimated blood loss (cc): 10 IV fluids (cc): 1,000 Specimen: omentum abscess Condition: stable Disposition: PACU Procedure in Detail: Patient was brought to the operating suite and placed upon on the operating table in sign in was performed and everyone was in agreement. Anesthesia was induced and patient was endotracheally intubated by anesthesia without incident. Abdomen was prepped and draped in the usual sterile fashion. Timeout was performed again everyone was in agreement. The small subcutaneous wound was excised in elliptical fashion with the Bovie. The midline was opened with a 15 blade. We dissected through the subcutaneous tissue to the anterior abdominal wall fascia with the Bovie. Al's were placed on either side of the fascia and the fascia was opened in the midline with the Bovie. The left abdominal wall mesh was located in a [place] placed on this for retraction. 2 Al's were placed on the left abdominal wall fascia for retraction. Using gentle blunt dissection, Metzenbaum scissors, the Bovie the mesh was removed from the abdominal wall. There were some omental adhesions to the underside of the abdominal wall which were taken down with gentle blunt dissection and Metzenbaum scissors. Al's were placed on the right abdominal wall fascia for retraction and the other side of the mesh was located and a [place] placed on this for retraction. There was small bowel adhesed to the underside of the abdominal wall where the mesh was located. This small bowel was taken down with gentle blunt dissection and Metzenbaum scissors. The mesh was then removed from the underside of the abdominal wall with the Bovie. The abdominal contents, small bowel were evaluated there were no enterotomies. The abdomen was irrigated with sterile saline. There was a firm area in the omentum at this was grasped and passed resulted from the area and a right angle was placed on this and it was excised with Metzenbaum scissors and the Bovie placed off the back table for culture. The abdomen was again irrigated with sterile saline. A piece of Seprafilm was placed in the abdomen. [place]'s were placed on either side of the fascia for retraction. The subcutaneous tissue was undermined and from the abdominal wall circumferentially around the wound with the Bovie. Any bleeding points were stopped with the Bovie. The midline fascia was closed with 2 separate #1 non-looped PDS running stitches meeting in the middle. The subcutaneous tissue was copiously irrigated with sterile saline. The umbilicus was tacked down to the midline fascia with 2 separate 3-0 Vicryl [id number] stitches. The subcutaneous tissue was reapproximated with 3-0 Vicryl interrupted stitches. The skin was closed with jaci. 4 x 4's and Medipore tape were applied as a dressing. A 4 panel abdominal binder was applied. Patient tolerated the procedure well. All lap and instrument counts were correct at the end of the case. The patient was awoken in the operating suite and extubated from anesthesia without incident.
--- NOTE | 2017-01-02 16:17 | Anesthesia Evaluation Post Op ---
Date of Encounter: 01/02/17 Time of Encounter: 16:16 - Vital Signs Vital Signs: Vital Signs/O2 Sat/Glucose, Most Recent Temp Pulse Resp BP Pulse Ox 99.5 F 63 16 116/73 98 01/02/17 15:38 01/02/17 15:58 01/02/17 15:58 01/02/17 15:58 01/02/17 15:58 - Lungs Lungs: Clear Ascult./Percussion - Airway Airway: Non-obstructed - Cardiovascular Regular Rate, Baseline Rhythm - Mental Status Mental Status: Alert & Oriented, Answers Appropriately - Pain Pain Scale: 0 Pain Scale used: Numeric (1 - 10) - Nausea Vomiting Nausea Vomiting: Not Present - Hydration Hydration: Ice chips, Has not voided Notes: 01/02/17 16:16 naac - Discharge PostOp Status: Transfer Patient to floor
[2017-01-02] MEDS ORDERED: Naloxone 0.4 MG/ML INJ IVP PRN (16:36)
[2017-01-02] MEDS ORDERED: Ondansetron 4 MG/2 ML VIAL IVP PRN (16:36)
[2017-01-02] MEDS ORDERED: cefOXitin 2,000 MG in D5% in Water (Mini-Bag+) 100 ML IVPB SCH (16:36)
[2017-01-02] MEDS: *HR* HYDROcodone/Acet 5/325 mg TABLET PO PRN (16:59)
[2017-01-02] MEDS: 0.9 % Sodium Chloride 1,000 ML IVC SCH (17:00)
[2017-01-02] MEDS: Clindamycin 900 MG/50 ML 900 MG/50 ML IV.SOLN IVPB SCH ×2 (20:07→20:08)
[2017-01-03] MEDS ORDERED: Clindamycin 600 MG/50 ML 600 MG/50 ML IV.SOLN IVPB SCH
[2017-01-03] MEDS: *HR* HYDROcodone/Acet 5/325 mg TABLET PO PRN ×2 (00:12→05:03)
[2017-01-03] MEDS: Clindamycin 900 MG/50 ML 900 MG/50 ML IV.SOLN IVPB SCH ×2 (00:12→11:12)
[2017-01-03] MEDS: 0.9 % Sodium Chloride 1,000 ML IVC SCH (04:57)
[2017-01-03 05:04] LABS: Basophils # 0.1 K/mcL (0.0-0.2); Basophils % 0.8 %; Eosinophils # 0.3 K/mcL (0.0-0.6); Eosinophils % 4.3 %; Hematocrit 41.7 % (37.5-50.1); Hemoglobin 13.3 g/dL (12.9-16.9); Immature Granulocytes % 0.4 % (0-4); Lymphocytes # 1.9 K/mcL (0.6-4.6); Mean Corpuscular HGB Conc 31.9 g/dL (31.6-35.5); Mean Corpuscular Hemoglobin 26.1 pg (28.0-33.3); Mean Corpuscular Volume 81.9 fL (83.0-100.0); Mean Platelet Volume 9.5 fL (9.4-12.4); Monocytes # 0.5 K/mcL (0.0-1.3); Monocytes % 7.4 %; Neutrophils # 4.4 K/mcL (1.6-8.9); Platelet Count 148 K/mcL (140-400); Red Blood Count 5.09 M/mcL (4.19-5.50); Red Cell Distribution Width 15.1 % (11.5-14.5); Segmented Neutrophils % 61.1 %
[2017-01-03 05:10] LABS: BUN/Creatinine Ratio 13 (6-26); Blood Urea Nitrogen 13 mg/dL (8-26); Calcium 8.9 mg/dL (8.6-10.8); Carbon Dioxide 22 mEq/L (19-29); Chloride 106 mEq/L (98-109); Glucose 122 mg/dL (70-99); Osmolality,Calculated 287 (280-300); Sodium 138 mEq/L (136-145); eGFR For African Americans > 60 (> 60); eGFR For Non-African Americans > 60 (> 60)
--- NOTE | 2017-01-03 07:32 | Discharge Summary ---
Date of Encounter: 01/03/17 Time of Encounter: 07:32 - Discharge Diagnosis (1) Infected hernioplasty mesh Priority: Primary Status: Acute Qualifiers: Encounter type: initial encounter Qualified Code(s): T85.79XA - Infection and inflammatory reaction due to other internal prosthetic devices, implants and grafts, initial encounter - Discharge Medications Prescriptions: OxyCODONE/APAP 5/325 [Percocet 5/325 MG] 1 each PO Q4HR PRN #30 tablet PRN Reason: Pain Clindamycin HCl 300 mg PO Q6H #20 capsule Home Medications: Atenolol [Tenormin] 25 mg PO DAILY 05/05/16 [History] Cholecalciferol (D-3) [Vitamin D] 2,000 unit PO DAILY 05/05/16 [History] Cyanocobalamin (Vitamin B-12) [Vitamin B12] 1,000 mcg PO DAILY 05/05/16 [History ] Docusate [Colace] 200 mg PO DAILY 05/05/16 [History] Finasteride [Proscar] 5 mg PO DAILY 05/05/16 [History] Furosemide [Lasix] 40 mg PO DAILY PRN 05/05/16 [History] Potassium Chloride [K-Tab ER] 20 meq PO DAILY 05/05/16 [History] Tamsulosin [Flomax] 0.4 mg PO DAILY 05/05/16 [History] Minocycline HCl [Minocin] 100 mg PO DAILY 08/18/16 [History] Acetaminophen [Tylenol] 1,000 mg PO BID 01/02/17 [History] [place]-3/Dha/Epa/Fish Oil [Fish Oil 1,000 mg Softgel] 1,000 mg PO DAILY 01/02/17 [History] Omeprazole [PriLOSEC] 40 mg PO DAILY 01/02/17 [History] Ondansetron HCl [Zofran] 4 mg PO Q6H PRN 01/02/17 [History] Triamcinolone Acet 0.1% CRM [Kenalog] 1 appl TP BID PRN 01/02/17 [History] Clindamycin HCl 300 mg PO Q6H #20 capsule 01/03/17 [Rx] OxyCODONE/APAP 5/325 [Percocet 5/325 MG] 1 each PO Q4HR PRN #30 tablet 01/03/17 [Rx] Allergies/Adverse Reactions: Allergies Amoxicillin [From Augmentin] Allergy (Verified 08/18/16 07:31) Hives clavulanic acid [From Augmentin] Allergy (Verified 08/18/16 07:31) Hives codeine Allergy (Verified 08/18/16 07:31) Nausea,Chest Pain Latex, Natural Rubber Allergy (Verified 08/18/16 07:31) Itching, meperidine [From Demerol] Allergy (Verified 08/18/16 07:31) Hives, Chest Pain tetanus immune globulin Allergy (Verified 08/18/16 07:31) Hives General Surgery Exam Initial Vital Signs Temp Pulse Resp BP Pulse Ox 97.9 F 65 18 140/81 96 01/02/17 13:07 01/02/17 13:07 01/02/17 13:07 01/02/17 13:07 01/02/17 13:07 - General physical appearance well developed, well nourished, no distress, moderate distress, moderate pain, obese - ENT atraumatic, normocephalic - Neck no masses, trachea midline - Respiratory normal expansion, normal respiratory effort, clear to auscultation - Cardiovascular Cardiovascular exam: Present: RRR, no murmurs/rubs/gallops - Abdomen Abdomen general surgery: Present: bowel sounds present, soft, tender Abdominal Tenderness: Present: diffusely (Worse at umbilicus) - Incision Incision: Present: clean and dry - Integumentary Integumentary general surgery: Present: warm and dry, no abnormal pigmentation. Absent: diaphoresis, rash - Neurologic Present: CN 2-12 grossly intact, normal coordination, normal sensation - Musculoskeletal Present: normal posture - Psychiatric Psychiatric general surgery: Present: appropriate, oriented to person, oriented to place, oriented to time, speech is normal, memory intact Date of admission: 01/02/17 16:21 Primary care physician: Gerard Townsend MD Discharging clinician: Josette Renae Anticipated date of discharge: 01/03/17 - Patient Status Disposition: Home, Self-Care Condition: Good Functional capacity at discharge: independent ambulation Overall status at discharge: patient is progressing back to baseline - Discharge Instructions Follow Up With: Josette Renae MD [Partnered Physician] - 01/18/17 1:20 pm Gerard Townsend MD [Primary Care Provider] - Additional Instructions: Surgical Instructions: 1. May shower today. No tub bath for 2 weeks. 2. Wash incisions with soap and water and pat dry daily. 3. No lifting more than 10-15 lbs for 4-[address] when off narcotics for over 24 hours and able to react safely in the car. 5. May climb stairs. - Diet and Activity Activity: other (per surgical instructions) Diet: advance to your usual diet - Hospital Course Hospital course: Mr. Hilario is a 76 year old male who is status post exploratory laparotomy and removal of infected mesh by Dr. Allison Jaimes on 01/02/2017. The abdominal contents, small bowel were evaluated there were no enterotomies. There was a firm area in the omentum that was removed and sent for culture. There were no complications and the patient tolerated the procedure well the skin was closed with jaci, covered with 4 x 4's and a MediPort tape as dressing. Before panel abdominal binder was also applied to the abdomen. Patient will be discharged in stable condition with follow-up in 2 weeks. He will be discharged with a prescription for clindamycin for 5 days, and Percocet. The patient state he has colace at home. - Time Spent with Patient Total time spent providing and/or coordinating discharge services: Less than 30 minutes Labs on day of discharge: Labs from last 24 hours 01/03/17 01/03/17 04:43 04:43 WBC 7.3 RBC 5.09 Hgb 13.3 Hct 41.7 MCV 81.9 L MCH 26.1 L MCHC 31.9 RDW 15.1 H Plt Count 148 MPV 9.5 Immature Gran % 0.4 Seg Neutrophils % 61.1 Lymphocytes % 26.0 Monocytes % 7.4 Eosinophils % 4.3 Basophils % 0.8 Neutrophils # 4.4 Lymphocytes # 1.9 Monocytes # 0.5 Eosinophils # 0.3 Basophils # 0.1 Sodium 138 Potassium 4.0 Chloride 106 Carbon Dioxide 22 BUN 13 Creatinine 0.97 Est GFR ( Amer) > 60 Est GFR (Non-Af Amer) > 60 BUN/Creatinine Ratio 13 Glucose 122 H Calculated Osmolality 287 Calcium 8.9
[2017-01-03] MEDS ORDERED: *HR* OxyCODONE/APAP 5/325 TABLET PO PRN (08:20)
[2017-01-03] MEDS ORDERED: Finasteride 5 MG TABLET PO SCH (09:00)
[2017-01-03 11:09] VITALS: BP 118/71
== END 2017-01-03 12:45 | disposition home or self-care (01) | DRG 908 ==
LOC: SAMDAY 12:43 → 3ANU 16:21
PROVIDERS: ADMIT Nurse Practitioner Family; ATTEND Surgery

== ENCOUNTER 2017-01-06 13:46 | Inpatient (IN) ==
[2017-01-06] MEDS ORDERED: *HR* Morphine 2 MG/ML SYRINGE IVP PRN (14:39)
[2017-01-06] MEDS ORDERED: *HR* Metoprolol 5 MG/5 ML VIAL IVP PRN (14:39)
[2017-01-06] MEDS ORDERED: Naloxone 0.4 MG/ML INJ IVP PRN (14:39)
[2017-01-06] MEDS ORDERED: Ondansetron 4 MG/2 ML VIAL IVP PRN (14:39)
[2017-01-06] MEDS ORDERED: Furosemide 40 MG TABLET PO PRN (14:44)
[2017-01-06 15:07] LABS: Basophils # 0.1 K/mcL (0.0-0.2); Basophils % 0.9 %; Eosinophils # 0.6 K/mcL (0.0-0.6); Eosinophils % 7.4 %; Hematocrit 39.8 % (37.5-50.1); Hemoglobin 13.1 g/dL (12.9-16.9); Immature Granulocytes % 0.5 % (0-4); Lymphocytes # 1.5 K/mcL (0.6-4.6); Lymphocytes % 18.9 %; Mean Corpuscular HGB Conc 32.9 g/dL (31.6-35.5); Mean Corpuscular Hemoglobin 26.5 pg (28.0-33.3); Mean Corpuscular Volume 80.6 fL (83.0-100.0); Mean Platelet Volume 9.4 fL (9.4-12.4); Monocytes # 0.6 K/mcL (0.0-1.3); Platelet Count 184 K/mcL (140-400); Red Blood Count 4.94 M/mcL (4.19-5.50); Red Cell Distribution Width 15.2 % (11.5-14.5); Segmented Neutrophils % 64.3 %
[2017-01-06 15:19] LABS: BUN/Creatinine Ratio 13 (6-26); Blood Urea Nitrogen 12 mg/dL (8-26); Calcium 9.8 mg/dL (8.6-10.8); Carbon Dioxide 25 mEq/L (19-29); Chloride 107 mEq/L (98-109); Glucose 112 mg/dL (70-99); INR 1.2; Osmolality,Calculated 295 (280-300); Potassium 3.5 mEq/L (3.5-4.5); Prothrombin Time 13.3 Seconds (9.4-12.1); Sodium 142 mEq/L (136-145); eGFR For African Americans > 60 (> 60); eGFR For Non-African Americans > 60 (> 60)
[2017-01-06 15:22] LABS: Activated Partial Thrombo Time 27.3 Seconds (26.0-36.0)
[2017-01-06] MEDS: Meropenem 1,000 MG in 0.9 % Sodium Chloride Mini Bag 100 ML IVPB SCH ×2 (15:57→23:32)
[2017-01-06] MEDS: 0.9 % Sodium Chloride 1,000 ML IVC SCH (15:58)
[2017-01-06] MEDS ORDERED: Vancomycin 1,750 MG in D5% in Water 250 ML IVPB SCH (16:00)
--- NOTE | 2017-01-06 16:41 | General Surg History&Physical ---
Date of Encounter: 01/06/17 Time of Encounter: 16:30 Assessment and Plan (1) Postoperative wound seroma Current Visit: Yes Status: Acute The assessment and plan as outlined above was discussed with the patient and/or family members who expressed understanding and agreement. All questions were answered. two midline incision areas jaci removed and serosang nonfoul smelling nonpurulent drainage resulted, wound packed with mesalt packing, covered with 4x4 gauze and medipore tape, change daily aerobic and anaerobic cultures obtained (2) Pseudomonas aeruginosa infection Current Visit: Yes Status: Acute The assessment and plan as outlined above was discussed with the patient and/or family members who expressed understanding and agreement. All questions were answered. patients abdominal culture grew Pseudomonas and his fevers - will plan IV abx meropenum for pseudomonas and vancomycin (for wound) blood cultures ordered - pending will plan on possible home with IV antibiotics next week (3) Status post exploratory laparotomy Current Visit: Yes Status: Acute The assessment and plan as outlined above was discussed with the patient and/or family members who expressed understanding and agreement. All questions were answered. (4) HTN (hypertension) Current Visit: Yes Status: Chronic The assessment and plan as outlined above was discussed with the patient and/or family members who expressed understanding and agreement. All questions were answered. continue home atenolol, prn antihypertensive, currently normotensive Qualifiers: Hypertension type: essential hypertension Qualified Code(s): I10 - Essential (primary) hypertension (5) BPH (benign prostatic hyperplasia) Current Visit: No Status: Chronic The assessment and plan as outlined above was discussed with the patient and/or family members who expressed understanding and agreement. All questions were answered. continue home flomax and finasteride Qualifiers: Prostatic enlargement morphology: unspecified morphology Lower urinary tract symptom presence: symptoms present Qualified Code(s): N40.1 - Benign prostatic hyperplasia with lower urinary tract symptoms (6) DVT prophylaxis Current Visit: No Status: Acute The assessment and plan as outlined above was discussed with the patient and/or family members who expressed understanding and agreement. All questions were answered. (7) Hypokalemia Current Visit: No Status: Chronic The assessment and plan as outlined above was discussed with the patient and/or family members who expressed understanding and agreement. All questions were answered. History of Present Illness Chief complaint: abdominal pain, wound redness HPI: Mr. Hilario is a 76 year old male who 5 days ago underwent removal of infected umbilical mesh. He has been having issues with abdominal pain but will not take his narcotics but has been taking motrin and tylenol. He is complaining of fevers in the evening ranging from 100.3 to 101.5. He is complaining of constipation and has been taking colace and miralax but also had diarrhea today or yesterday. His has been changing his abdominal gauze dressing daily and states that yesterday the midline incision looked fine. Today the midline was firm, discolored - a yellow/red, no drainage, more pain at the site. His culture from his surgery grew pseudomonas. Past Med Surg Social Fam HX - Past Medical History Source: patient Medical history: aortic aneurysm, cancer, GERD, hyperlipidemia, hypertension, other (history diverticulitis, recent mesh infection with nonhealing surgical wound) Psychiatric history: depression - Past Surgical History Surgical History: cataract, cholecystectomy (open), colectomy (open sigmoid colectomy; ex lap, removal infected mesh), herniorrhaphy (umbilical), orthopedic , other, other - Social History Smoking Status: Former smoker Smokeless Tobacco Status: No Alcohol use: none Drug use: none Medications and Allergies Atenolol [Tenormin] 25 mg PO DAILY 05/05/16 [History] Cholecalciferol (D-3) [Vitamin D] 2,000 unit PO DAILY 05/05/16 [History] Cyanocobalamin (Vitamin B-12) [Vitamin B12] 1,000 mcg PO DAILY 05/05/16 [History ] Docusate [Colace] 200 mg PO DAILY 05/05/16 [History] Finasteride [Proscar] 5 mg PO DAILY 05/05/16 [History] Furosemide [Lasix] 40 mg PO DAILY PRN 05/05/16 [History] Potassium Chloride [K-Tab ER] 20 meq PO DAILY 05/05/16 [History] Tamsulosin [Flomax] 0.4 mg PO DAILY 05/05/16 [History] Minocycline HCl [Minocin] 100 mg PO DAILY 08/18/16 [History] Acetaminophen [Tylenol] 1,000 mg PO BID 01/02/17 [History] [place]-3/Dha/Epa/Fish Oil [Fish Oil 1,000 mg Softgel] 1,000 mg PO DAILY 01/02/17 [History] Omeprazole [PriLOSEC] 40 mg PO DAILY 01/02/17 [History] Ondansetron HCl [Zofran] 4 mg PO Q6H PRN 01/02/17 [History] Triamcinolone Acet 0.1% CRM [Kenalog] 1 appl TP BID PRN 01/02/17 [History] Clindamycin HCl 300 mg PO Q6H #20 capsule 01/03/17 [Rx] OxyCODONE/APAP 5/325 [Percocet 5/325 MG] 1 each PO Q4HR PRN #30 tablet 01/03/17 [Rx] Allergies Amoxicillin [From Augmentin] Allergy (Verified 08/18/16 07:31) Hives clavulanic acid [From Augmentin] Allergy (Verified 08/18/16 07:31) Hives codeine Allergy (Verified 08/18/16 07:31) Nausea,Chest Pain Latex, Natural Rubber Allergy (Verified 08/18/16 07:31) Itching, meperidine [From Demerol] Allergy (Verified 08/18/16 07:31) Hives, Chest Pain tetanus immune globulin Allergy (Verified 08/18/16 07:31) Hives Review of Systems All systems PM: reviewed and no additional remarkable complaints except as stated All systems PM: A 10-system review of systems was performed and is negative for pertinent findings except as documented above in the HPI. General Surgery Exam Initial Vital Signs Temp Pulse Resp BP Pulse Ox 97.7 F 61 14 121/74 95 01/06/17 15:05 01/06/17 15:05 01/06/17 15:05 01/06/17 15:05 01/06/17 15:05 - General physical appearance well developed, well nourished, no distress, obese - Eyes PERRL, normal ocular movement - ENT normal mucosa, normocephalic - Neck trachea midline - Respiratory normal expansion, normal respiratory effort, clear to auscultation - Cardiovascular Cardiovascular exam: Present: RRR, no murmurs/rubs/gallops - Abdomen Abdomen general surgery: Present: bowel sounds present, soft, tender (at midline incisioin) - Incision Incision: Present: red, swollen, serosanguinous (midline incision opened at two seperate areas and serosang drainage resulted - no purulence, no foul smell, wound was packed with mesalt ribbon) - Integumentary Integumentary general surgery: Present: warm and dry - Neurologic Present: CN 2-12 grossly intact - Musculoskeletal Present: normal gait, normal posture - Psychiatric Psychiatric general surgery: Present: A&Ox3, speech is normal Results - Labs 01/06/17 14:15 01/06/17 14:15 Short CBC 01/06/17 Range/Units 14:15 WBC 7.7 (4.3-11.1) K/mcL Hgb 13.1 (12.9-16.9) g/dL Hct 39.8 (37.5-50.1) % Plt Count 184 (140-400) K/mcL Neutrophils # 5.0 (1.6-8.9) K/mcL BMP 01/06/17 Range/Units 14:15 Sodium 142 (136-145) mEq/L Potassium 3.5 (3.5-4.5) mEq/L Chloride 107 (98-109) mEq/L Carbon Dioxide 25 (19-29) mEq/L BUN 12 (8-26) mg/dL Creatinine 0.90 (0.72-1.25) mg/dL Glucose 112 H (70-99) mg/dL Calcium 9.8 (8.6-10.8) mg/dL Vital Signs Temp Pulse Resp BP Pulse Ox 01/06/17 15:05 97.7 F 61 14 121/74 95 Intake and Output 01/06/17 01/06/17 01/06/17 07:59 15:59 23:59 Intake Total 100 / 100 Output Total 650 / 650 Balance -550 / -550 Intake: IV Fluids 100 / 100 Merrem 1,000 MG In 0.9 % 100 / 100 Sodium Chloride (Mini-Bag +) 100 ML @ 200 mls/hr IVPB Q8HR ON LICENSE OF [facility] Rx#: [id number] Output: Urine 650 / 650 Other: Weight 257.8 kg 116.936 kg Patient Weight 01/06/17 23:59 Weight 116.936 kg
[2017-01-06] MEDS ORDERED: Vancomycin 2,000 MG in D5% in Water 500 ML IVPB ONE (17:00)
[2017-01-06] MEDS: *HR* Heparin 5,000 UNIT/ML VIAL SQ SCH (17:07)
[2017-01-06] MEDS ORDERED: Vancomycin 1,000 MG in D5% in Water 250 ML IVPB SCH (18:00)
[2017-01-06] MEDS: Acetaminophen 325 MG TABLET PO PRN (22:15)
[2017-01-07] MEDS ORDERED: Ibuprofen 600 MG TABLET PO ONE (01:32)
[2017-01-07] MEDS: Vancomycin 1,750 MG in D5% in Water 500 ML IVPB SCH ×2 (01:39→12:55)
[2017-01-07 04:36] LABS: Hematocrit 38.8 % (37.5-50.1); Hemoglobin 12.9 g/dL (12.9-16.9); Immature Granulocytes % 0.6 % (0-4); Lymphocytes % 11.9 %; Mean Corpuscular HGB Conc 33.2 g/dL (31.6-35.5); Mean Corpuscular Hemoglobin 26.7 pg (28.0-33.3); Mean Corpuscular Volume 80.3 fL (83.0-100.0); Mean Platelet Volume 9.5 fL (9.4-12.4); Monocytes % 5.8 %; Platelet Count 177 K/mcL (140-400); Red Blood Count 4.83 M/mcL (4.19-5.50); Red Cell Distribution Width 15.1 % (11.5-14.5); Segmented Neutrophils % 78.1 %
[2017-01-07 04:37] LABS: Basophils % 0.3 %; Eosinophils # 0.2 K/mcL (0.0-0.6); Eosinophils % 3.3 %; Lymphocytes # 0.8 K/mcL (0.6-4.6); Monocytes # 0.4 K/mcL (0.0-1.3); Neutrophils # 5.3 K/mcL (1.6-8.9)
[2017-01-07 04:52] LABS: BUN/Creatinine Ratio 12 (6-26); Blood Urea Nitrogen 13 mg/dL (8-26); Calcium 9.3 mg/dL (8.6-10.8); Carbon Dioxide 25 mEq/L (19-29); Chloride 103 mEq/L (98-109); Glucose 133 mg/dL (70-99); Osmolality,Calculated 286 (280-300); Potassium 3.7 mEq/L (3.5-4.5); Sodium 137 mEq/L (136-145); eGFR For African Americans > 60 (> 60); eGFR For Non-African Americans > 60 (> 60)
[2017-01-07] MEDS: *HR* Heparin 5,000 UNIT/ML VIAL SQ SCH ×2 (06:34→17:53)
[2017-01-07] MEDS: Meropenem 1,000 MG in 0.9 % Sodium Chloride Mini Bag 100 ML IVPB SCH ×2 (08:29→17:53)
[2017-01-07] MEDS: Finasteride 5 MG TABLET PO SCH (08:29)
--- NOTE | 2017-01-07 09:35 | General Surgery Progress Note ---
Date of Encounter: 01/09/17 Time of Encounter: 08:00 - Assessment and Plan (1) Postoperative wound seroma Current Visit: Yes Status: Acute Postoperative day #5 for exploratory laparotomy and removal of infected mesh. With subsequent development of postoperative wound seroma. Seroma was drained producing serosanguineous nonfoul smelling nonpurulent drainage resulted, wound was packed with mesaly packing, and aerobic and anaerobic cultures were obtained by Dr. Renae 01/06/17, wound was dressed with 4x4 gauze and medipore tape. On examination: Patient is alert and oriented 3 very pleasant, he reports flatus, diarrhea described as round watery stool however, he admits using MiraLAX 2-3 doses on Monday and 2-3 doses on and one dose yesterday just prior to arrival for constipation since Monday evening. He reports that his left ear has chronic ringing and sensitivity with fluid buildup behind it that is bothering him today this is been going on for more than 2 years he has seen ENT however, states that he does not want to have surgery on his septum and is unsure about his eustachian tubes, thinks he may be having hearing loss in his left ear, patient reports that he places a cotton ball in his left ear to decrease the sensitivity to touch. Plan: -Daily wound check and dressing change. -Final wound cultures pending (2) Pseudomonas aeruginosa infection Current Visit: Yes Status: Acute patients abdominal culture grew Pseudomonas and his fevers . Plan: -Continue to monitor vitals especially for temperature spikes. Tylenol PRN. - Continue IV abx: meropenum for pseudomonas and vancomycin (for wound) - will plan on possible home with IV antibiotics next week -blood cultures ordered - pending (3) Status post exploratory laparotomy Current Visit: Yes Status: Acute The assessment and plan as outlined above was discussed with the patient and/or family members who expressed understanding and agreement. All questions were answered. Postoperative day #5 for exploratory laparotomy and removal of infected mesh. Plan: -Continue with regular diet -Encourage ambulation (4) HTN (hypertension) Current Visit: Yes Status: Chronic continue home atenolol, prn antihypertensive, currently normotensive Qualifiers: Hypertension type: essential hypertension Qualified Code(s): I10 - Essential (primary) hypertension (5) BPH (benign prostatic hyperplasia) Current Visit: Yes Status: Chronic continue home flomax and finasteride Qualifiers: Prostatic enlargement morphology: unspecified morphology Lower urinary tract symptom presence: symptoms present Qualified Code(s): N40.1 - Benign prostatic hyperplasia with lower urinary tract symptoms (6) DVT prophylaxis Current Visit: No Status: Acute Heparin 5,000 U SQ Q 12HCO Up to ambulate Subjective Patient reports: feels better, pain is less, voiding w/o difficulty Narrative: Patient is alert and oriented 3 very pleasant, he reports flatus, diarrhea that "let loose last night" described as brown watery stool however, he admits using MiraLAX 2-3 doses on Monday and 2-3 doses on and one dose yesterday just prior to arrival for constipation since Monday evening. He reports that his left ear has chronic ringing and sensitivity with fluid buildup behind it that is bothering him today this is been going on for more than 2 years he has seen ENT however, states that he does not want to have surgery on his septum and is unsure about his eustachian tubes, thinks he may be having hearing loss in his left ear, patient reports that he places a cotton ball in his left ear to decrease the sensitivity to touch. Objective Vital Signs - Last 8 Hours Temp Pulse Resp BP Pulse Ox 01/07/17 07:38 98.1 F 69 16 124/71 95 01/07/17 03:55 99.7 F H 96 14 124/71 95 Intake and Output 01/06/17 01/07/17 01/07/17 23:59 07:59 15:59 Intake Total 340 / 340 600 / 600 240 / 240 Output Total 650 / 650 960 / 960 Balance -310 / -310 -360 / -360 240 / 240 Intake: IV Fluids 100 / 100 600 / 600 Merrem 1,000 MG In 0.9 % 100 / 100 100 / 100 Sodium Chloride (Mini-Bag +) 100 ML @ 200 mls/hr IVPB Q8HR [facility] Rx#: [id number] Vancocin 1,750 MG In 500 / 500 Dextrose 5% 500 ML @ 333. 34 mls/hr IVPB Q12H [facility] Rx#:[id number] Oral 240 / 240 0 / 0 240 / 240 Output: Urine 650 / 650 960 / 960 Other: Meal Dinner Breakfast Percent of Meal Consumed 100% 100% # Voids 1 Weight 116.936 kg 116.8 kg Patient Weight 01/07/17 23:59 Weight 116.8 kg - General physical appearance well developed, well nourished, no distress, obese - Eyes PERRL, normal ocular movement - ENT normal mucosa, normocephalic - Neck Neck exam: trachea midline - Respiratory normal expansion, normal respiratory effort, clear to auscultation - Cardiovascular Cardiovascular exam: Present: RRR, no murmurs/rubs/gallops. Absent: JVD - Abdomen Abdomen: Present: bowel sounds present, soft, tender (At midline incision) - Incision Incision: Present: red, swollen (mesault ribbon packing in place with active drainage), serosanguinous - Integumentary no rash, other (Warm and dry) - Neurologic CN 2-12 grossly intact, normal sensation - Musculoskeletal normal gait, normal posture - Psychiatric oriented to time, oriented to person, oriented to place, speech is normal - Labs 01/07/17 04:20 01/08/17 12:15 Diabetes panel 01/06/17 01/07/17 Range/Units 14:15 04:20 Sodium 142 137 (136-145) mEq/L Potassium 3.5 3.7 (3.5-4.5) mEq/L Chloride 107 103 (98-109) mEq/L Carbon Dioxide 25 25 (19-29) mEq/L BUN 12 13 (8-26) mg/dL Creatinine 0.90 1.06 (0.72-1.25) mg/dL Glucose 112 H 133 H (70-99) mg/dL Calcium 9.8 9.3 (8.6-10.8) mg/dL Calcium panel 01/06/17 01/07/17 Range/Units 14:15 04:20 Calcium 9.8 9.3 (8.6-10.8) mg/dL Pituitary panel 01/06/17 01/07/17 Range/Units 14:15 04:20 Sodium 142 137 (136-145) mEq/L Potassium 3.5 3.7 (3.5-4.5) mEq/L Chloride 107 103 (98-109) mEq/L Carbon Dioxide 25 25 (19-29) mEq/L BUN 12 13 (8-26) mg/dL Creatinine 0.90 1.06 (0.72-1.25) mg/dL Glucose 112 H 133 H (70-99) mg/dL Calcium 9.8 9.3 (8.6-10.8) mg/dL Adrenal panel 01/06/17 01/07/17 Range/Units 14:15 04:20 Sodium 142 137 (136-145) mEq/L Potassium 3.5 3.7 (3.5-4.5) mEq/L Chloride 107 103 (98-109) mEq/L Carbon Dioxide 25 25 (19-29) mEq/L BUN 12 13 (8-26) mg/dL Creatinine 0.90 1.06 (0.72-1.25) mg/dL Glucose 112 H 133 H (70-99) mg/dL Calcium 9.8 9.3 (8.6-10.8) mg/dL Consult Discharge Plan - Plan Referrals: Gerard Townsend MD [Primary Care Provider] - Daisy Nicole CNP [Advanced Practice Nurse] - 01/13/17 1:45 pm - Attending Attestation I examined this patient and my medical decision-making was reviewed with the INDOOR LANDSCAPE ARCHITECT/PA/Advanced Practice Nurse/Resident Physician. I agree with the documented findings, disposition and treatment plan as described except to the extent set forth below. I reviewed the assessment and plan with the news department intern present. Packing in place in the midline incision with with some sterile saline was drainage on the dressing. To be changed once a day. Patient had a temperature spike of 102.8 yesterday evening/glass calibrator. Continue IV antibiotics and continue to observe the temperature curve. Patient on Tylenol when necessary.
[2017-01-07] MEDS: Acetaminophen 325 MG TABLET PO PRN (16:00)
[2017-01-08] MEDS: Meropenem 1,000 MG in 0.9 % Sodium Chloride Mini Bag 100 ML IVPB SCH ×3 (00:09→17:49)
[2017-01-08] MEDS: Vancomycin 1,750 MG in D5% in Water 500 ML IVPB SCH ×2 (01:44→13:25)
[2017-01-08] MEDS: Acetaminophen 325 MG TABLET PO PRN ×2 (02:47→17:49)
[2017-01-08] MEDS: *HR* Heparin 5,000 UNIT/ML VIAL SQ SCH ×2 (05:46→17:50)
[2017-01-08] MEDS: Finasteride 5 MG TABLET PO SCH (08:16)
--- NOTE | 2017-01-08 09:05 | General Surgery Progress Note ---
Date of Encounter: 01/09/17 Time of Encounter: 09:05 - Assessment and Plan (1) Postoperative wound seroma Current Visit: Yes Status: Acute Postoperative day #6 for exploratory laparotomy and removal of infected mesh. With subsequent development of postoperative wound seroma. Seroma was drained producing serosanguineous nonfoul smelling nonpurulent drainage resulted, wound was packed with mesaly packing, and aerobic and anaerobic cultures were obtained by Dr. Renae 01/06/17, wound was dressed with 4x4 gauze and medipore tape. On examination: Patient is alert and oriented 3 very pleasant, he reports flatus, diarrhea described as round watery stool however, he admits using MiraLAX 2-3 doses on Monday and 2-3 doses on and one dose yesterday just prior to arrival for constipation since Monday evening. Diarrhea is slowly becoming firmer today described as loose stool. Patient reports that overnight he had excessive drainage and another pad had to be applied because he woke up wet. Serosanguineous wound drainage and packing in place. One episode last night of sweating however, temperature has leveled out. No fever spikes patient is afebrile. Abdomen mildly tender around the wound. No rebound, rigidity or guarding. Nonsurgical abdomen. Vital signs stable. Nonfocal neurologic exam. Vancomycin trough was elevated 20.5; pharmacy to dose. Increased serosanguineous drainage from wound. Plan: -Daily wound check -Dressing change BID for increasing wound drainage. -Encourage activity -Encourage hygiene -Final wound cultures pending (2) Pseudomonas aeruginosa infection Current Visit: Yes Status: Acute patients abdominal culture grew Pseudomonas and he was febrile Plan: -Continue to monitor vitals especially for temperature spikes. Tylenol PRN. - Continue IV abx: meropenum for pseudomonas and vancomycin (for wound) - will plan on possible home with IV antibiotics next week -blood cultures final pending (3) Status post exploratory laparotomy Current Visit: Yes Status: Acute The assessment and plan as outlined above was discussed with the patient and/or family members who expressed understanding and agreement. All questions were answered. Postoperative day #6 for exploratory laparotomy and removal of infected mesh. Plan: -Continue with regular diet -Encourage ambulation (4) HTN (hypertension) Current Visit: Yes Status: Chronic continue home atenolol, prn antihypertensive, currently normotensive Qualifiers: Hypertension type: essential hypertension Qualified Code(s): I10 - Essential (primary) hypertension (5) BPH (benign prostatic hyperplasia) Current Visit: Yes Status: Chronic continue home flomax and finasteride Qualifiers: Prostatic enlargement morphology: unspecified morphology Lower urinary tract symptom presence: symptoms present Qualified Code(s): N40.1 - Benign prostatic hyperplasia with lower urinary tract symptoms (6) DVT prophylaxis Current Visit: No Status: Acute Heparin 5,000 U SQ Q 12HCO Up to ambulate Subjective Patient reports: feels better, pain is less, tolerating a regular diet, voiding w/o difficulty, flatus, bowel movement, afebrile Narrative: The patient was seen and examined. He reports that his diarrhea from the MiraLAX is slowly becoming firmer today described as loose stool. Patient reports that overnight he had excessive wound drainage and another pad had to be applied because he woke up wet. Serosanguineous wound drainage and packing in place. One episode last night of sweating however patient says it was nothing like previous nights when he had fevers. Patient is tolerating his regular diet well and 100% of his breakfast. Urinating without difficulty. Reports he will ambulate down the [place]olas today. Objective Vital Signs - Last 8 Hours Temp Pulse Resp BP Pulse Ox 01/08/17 07:33 98.1 F 71 14 112/71 96 01/08/17 03:46 98.1 F 80 14 133/80 93 Intake and Output 01/07/17 01/08/17 01/08/17 23:59 07:59 15:59 Intake Total 520 / 520 100 / 100 240 / 240 Output Total 875 / 875 400 / 400 Balance -355 / -355 -300 / -300 240 / 240 Intake: IV Fluids 400 / 400 100 / 100 0.9 % Sodium Chloride 1, 300 / 300 000 ML @ 20 mls/hr IVC . Q24H [facility] Rx#:[id number] Merrem 1,000 MG In 0.9 % 100 / 100 100 / 100 Sodium Chloride (Mini-Bag +) 100 ML @ 200 mls/hr IVPB Q8HR [facility] Rx#: [id number] Oral 120 / 120 0 / 0 240 / 240 Output: Urine 875 / 875 400 / 400 Other: Meal Dinner Breakfast Percent of Meal Consumed 50% 100% Weight 116.8 kg Patient Weight 01/08/17 23:59 Weight 116.8 kg - Labs 01/07/17 04:20 01/08/17 12:15 Consult Discharge Plan - Plan Referrals: Gerard Townsend MD [Primary Care Provider] - Daisy Nicole CNP [Advanced Practice Nurse] - 01/13/17 1:45 pm - Attending Attestation I examined this patient and my medical decision-making was reviewed with the ROLLER COASTER ENGINEER/PA/Advanced Practice Nurse/Resident Physician. I agree with the documented findings, disposition and treatment plan as described except to the extent set forth below. Noted above assessment and evaluation and agree with the above plan. Patient is significant improvement with no temperature spikes. We will continue to monitor drainage and change dressing changes to twice a day.
[2017-01-08 12:46] LABS: eGFR For African Americans > 60 (> 60); eGFR For Non-African Americans > 60 (> 60)
[2017-01-08 12:47] LABS: Blood Urea Nitrogen 13 mg/dL (8-26)
[2017-01-08] MEDS: 0.9 % Sodium Chloride 1,000 ML IVC SCH (17:51)
[2017-01-09] MEDS: Meropenem 1,000 MG in 0.9 % Sodium Chloride Mini Bag 100 ML IVPB SCH ×2 (00:15→07:49)
[2017-01-09] MEDS: *HR* Heparin 5,000 UNIT/ML VIAL SQ SCH ×2 (06:44→17:45)
[2017-01-09 08:25] LABS: Basophils % 0.8 %; Eosinophils # 0.4 K/mcL (0.0-0.6); Eosinophils % 8.4 %; Hematocrit 40.4 % (37.5-50.1); Hemoglobin 13.1 g/dL (12.9-16.9); Immature Granulocytes % 0.6 % (0-4); Lymphocytes # 1.2 K/mcL (0.6-4.6); Mean Corpuscular HGB Conc 32.4 g/dL (31.6-35.5); Mean Corpuscular Hemoglobin 26.5 pg (28.0-33.3); Mean Corpuscular Volume 81.8 fL (83.0-100.0); Mean Platelet Volume 8.8 fL (9.4-12.4); Monocytes # 0.4 K/mcL (0.0-1.3); Monocytes % 7.8 %; Neutrophils # 2.7 K/mcL (1.6-8.9); Platelet Count 183 K/mcL (140-400); Red Blood Count 4.94 M/mcL (4.19-5.50); Red Cell Distribution Width 14.8 % (11.5-14.5); Segmented Neutrophils % 56.4 %
[2017-01-09 08:36] LABS: BUN/Creatinine Ratio 13 (6-26); Blood Urea Nitrogen 13 mg/dL (8-26); Calcium 9.4 mg/dL (8.6-10.8); Carbon Dioxide 28 mEq/L (19-29); Chloride 106 mEq/L (98-109); Glucose 106 mg/dL (70-99); Osmolality,Calculated 293 (280-300); Potassium 3.8 mEq/L (3.5-4.5); Sodium 141 mEq/L (136-145); eGFR For African Americans > 60 (> 60); eGFR For Non-African Americans > 60 (> 60)
--- NOTE | 2017-01-09 08:42 | General Surgery Progress Note ---
Date of Encounter: 01/09/17 Time of Encounter: 09:30 - Assessment and Plan (1) Postoperative wound seroma Current Visit: Yes Status: Acute POD#7 exploratory laparotomy and removal of infected mesh with subsequent development of postop wound seroma Wound culture from 01/06 grew pseudomonas aeruginosa Patient has been on vancomycin for cellulitis of surrounding skin. Scr 0.98. Remains afebrile, WBC 4.8. Patient has mild pain this morning. Serosanguineous drainage from wound site noted, wound is dressed Plan: -Will consult ID for abx recommendations as the patient has multiple abx allergies. Also appreciate recommendations on PICC placement for outpatient IV abx treatment. - Continue IV abx: meropenum for pseudomonas and vancomycin cellulitis - Possible d/c with IV antibiotics this week -Daily wound check -Dressing change BID: 1/2inch packing in 2 separate pieces to upper and lower wound tracts, gentamicin ointment -Encourage activity -Encourage hygiene -Regular Diet will stop vancomycin as wound cultures grew pseudomonas consult ID for Abx recommendations, so can get home care started BID dressing chagnes (2) Pseudomonas aeruginosa infection Current Visit: Yes Status: Acute meropenum pt with many allergies, will consult ID (3) Status post exploratory laparotomy Current Visit: Yes Status: Acute (4) BPH (benign prostatic hyperplasia) Current Visit: Yes Status: Chronic continue home mediciation Qualifiers: Prostatic enlargement morphology: unspecified morphology Lower urinary tract symptom presence: symptoms present Qualified Code(s): N40.1 - Benign prostatic hyperplasia with lower urinary tract symptoms (5) HTN (hypertension) Current Visit: Yes Status: Chronic continue home medication, normotensive Qualifiers: Hypertension type: essential hypertension Qualified Code(s): I10 - Essential (primary) hypertension (6) DVT prophylaxis Current Visit: No Status: Acute Heparin 5,000 U SQ Q 12HCO Up to ambulate Subjective Patient reports: no new complaints, still having pain, pain is less, tolerating a regular diet, flatus, bowel movement, afebrile Narrative: The patient was seen and examined. He states that he has mild pain but otherwise has no complaints. He is tolerating his diet well. Objective Vital Signs - Last 8 Hours Temp Pulse Resp BP Pulse Ox 01/09/17 07:01 97.9 F 59 18 132/79 98 01/09/17 03:36 98.2 F 65 16 128/75 97 Intake and Output 01/08/17 01/09/17 01/09/17 23:59 07:59 15:59 Intake Total 1190 / 1190 300 / 300 445 / 445 Output Total 550 / 550 450 / 450 Balance 640 / 640 -150 / -150 445 / 445 Intake: IV Fluids 950 / 950 100 / 100 445 / 445 0.9 % Sodium Chloride 1, 350 / 350 445 / 445 000 ML @ 20 mls/hr IVC . Q24H [facility] Rx#:[id number] Merrem 1,000 MG In 0.9 % 100 / 100 100 / 100 Sodium Chloride (Mini-Bag +) 100 ML @ 200 mls/hr IVPB Q8HR [facility] Rx#: [id number] Vancocin 1,750 MG In 500 / 500 Dextrose 5% 500 ML @ 333. 34 mls/hr IVPB Q24H [facility] Rx#:[id number] Oral 240 / 240 200 / 200 Output: Urine 550 / 550 450 / 450 Other: Meal Dinner Percent of Meal Consumed 100% Weight 117.254 kg Patient Weight 01/09/17 23:59 Weight 117.254 kg - General physical appearance well developed, well nourished, no distress, no pain - Eyes PERRL, normal ocular movement - ENT normal pinna, normal nares, normal mucosa, atraumatic, normocephalic - Neck Neck exam: trachea midline - Respiratory normal expansion, normal respiratory effort, clear to auscultation - Cardiovascular Cardiovascular exam: Present: RRR, no murmurs/rubs/gallops - Abdomen Abdomen: Present: bowel sounds present, soft, non tender, tender (appropriate post op tenderness, significantly less erythema compared to monday, ) - Incision Incision: Present: clean and dry, open (large amount serous drainage) - Integumentary no rash, no growths, no abnormal pigmentation - Neurologic normal coordination, normal sensation - Musculoskeletal normal gait, normal posture - Psychiatric oriented to time, oriented to person, oriented to place, speech is normal, memory intact - Labs 01/09/17 08:17 01/09/17 08:17 Short CBC 01/09/17 Range/Units 08:17 WBC 4.8 (4.3-11.1) K/mcL Hgb 13.1 (12.9-16.9) g/dL Hct 40.4 (37.5-50.1) % Plt Count 183 (140-400) K/mcL Neutrophils # 2.7 (1.6-8.9) K/mcL BMP 01/09/17 01/08/17 01/08/17 Range/Units 08:17 12:15 12:15 Sodium 141 (136-145) mEq/L Potassium 3.8 (3.5-4.5) mEq/L Chloride 106 (98-109) mEq/L Carbon Dioxide 28 (19-29) mEq/L BUN 13 13 (8-26) mg/dL Creatinine 0.98 0.98 (0.72-1.25) mg/dL Glucose 106 H (70-99) mg/dL Calcium 9.4 (8.6-10.8) mg/dL Short CBC 01/09/17 Range/Units 08:17 WBC 4.8 (4.3-11.1) K/mcL Hgb 13.1 (12.9-16.9) g/dL Hct 40.4 (37.5-50.1) % Plt Count 183 (140-400) K/mcL Neutrophils # 2.7 (1.6-8.9) K/mcL BMP 01/09/17 Range/Units 08:17 Sodium 141 (136-145) mEq/L Potassium 3.8 (3.5-4.5) mEq/L Chloride 106 (98-109) mEq/L Carbon Dioxide 28 (19-29) mEq/L BUN 13 (8-26) mg/dL Creatinine 0.98 (0.72-1.25) mg/dL Glucose 106 H (70-99) mg/dL Calcium 9.4 (8.6-10.8) mg/dL Vital Signs Temp Pulse Resp BP Pulse Ox 01/09/17 15:35 97.6 F 62 18 111/68 94 01/09/17 07:01 97.9 F 59 18 132/79 98 01/09/17 03:36 98.2 F 65 16 128/75 97 01/08/17 23:44 97.8 F 64 14 118/74 94 01/08/17 19:19 98.4 F 65 16 125/75 94 Intake and Output 01/09/17 01/09/17 01/09/17 07:59 15:59 23:59 Intake Total 300 / 300 1265 / 1265 Output Total 450 / 450 Balance -150 / -150 1265 / 1265 Intake: IV Fluids 100 / 100 545 / 545 0.9 % Sodium Chloride 1, 445 / 445 000 ML @ 20 mls/hr IVC . Q24H ENOC Rx#:[id number] Merrem 1,000 MG In 0.9 % 100 / 100 100 / 100 Sodium Chloride (Mini-Bag +) 100 ML @ 200 mls/hr IVPB Q8HR ENOC Rx#: [id number] Oral 200 / 200 720 / 720 Output: Urine 450 / 450 Other: Meal Lunch Percent of Meal Consumed 100% # Voids 1 Weight 117.254 kg Patient Weight 01/09/17 23:59 Weight 117.254 kg Consult Discharge Plan - Plan Referrals: Gerard Townsend MD [Primary Care Provider] - Daisy Nicole CNP [Advanced Practice Nurse] - 01/13/17 1:45 pm Prescriptions: Ceftazidime in Dextrose5%Water [Ceftazidime 2 gm Piggyback] 2 gm IV TID #42 piggyback metroNIDAZOLE [Flagyl] 500 mg PO TID #21 tablet - Attending Attestation I examined this patient and my medical decision-making was reviewed with the FITTING ROOM MAINTENANCE MECHANIC/PA/Advanced Practice Nurse/Resident Physician. I agree with the documented findings, disposition and treatment plan as described except to the extent set forth below.
[2017-01-09] MEDS: Finasteride 5 MG TABLET PO SCH (09:42)
[2017-01-09] MEDS: Acetaminophen 325 MG TABLET PO PRN ×2 (09:47→22:37)
[2017-01-09] MEDS ORDERED: Gentamicin Oint 15 GM TUBE TP SCH (13:00)
[2017-01-09] MEDS: Vancomycin 1,750 MG in D5% in Water 500 ML IVPB SCH (14:32)
--- NOTE | 2017-01-09 16:14 | Infectious Disease Consult ---
Date of Encounter: 01/09/17 Time of Encounter: 16:10 Assessment and Plan (1) Sepsis Status: Acute Assessment and plan: The patient had two SIRS criteria on admission. Likely secondary to infected surgical wound. Improved. The patient has been afebrile x 24 hours and tachycardia has resolved. Blood cultures drawn 01/06/17 are NGTD. Qualifiers: Sepsis type: sepsis due to unspecified organism Qualified Code(s): A41.9 - Sepsis, unspecified organism (2) Surgical wound infection Status: Acute Assessment and plan: Causative organism Pseudomona aeruginosa. Location: Abdomen. 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 Developed a non- healing abdominal wound. Had exploratory lap with removal of infected mesh by Dr. Renae. Intra-operatively, an omental abscess was noted and excised. Culture was positive for PSEA. The patient developed fevers and chills the day of discharge and was re-admitted three days later. Repeat wound culture positive for PSEA again. Also need to consider anaerobic causative organisms. Discontinue Meropenem and Vanc. Start ceftazidime 2 grams IV Q8H. Start Flagyl 500mg PO TID. Duration of treatment depends on the clinical picture, but likely a total of 14 days. Will follow up with the patient in the office and decide final plan of care based on patient response to treatment. Consult VAT for EPIV placement if not already done. Continue wound care and activity recommendations per the general surgery team. Monitor renal function and dose-adjust antibiotics based on creatinine clearance. Qualifiers: Encounter type: initial encounter Qualified Code(s): T81.4XXA - Infection following a procedure, initial encounter (3) Omental abscess Status: Acute Assessment and plan: Status post exploratory lap with removal of infected mesh 01/02/[address] Renae. Intra-operatively, omental abscess noted and excised. Culture positive for PSEA. Continue antibiotics as above. (4) Infected hernioplasty mesh Status: Acute Assessment and plan: Status post exploratory lap with removal of infected mesh 01/02/[address] Renae. Continue antibiotics as above. Qualifiers: Encounter type: initial encounter Qualified Code(s): T85.79XA - Infection and inflammatory reaction due to other internal prosthetic devices, implants and grafts, initial encounter (5) S/P colectomy Status: Acute Assessment and plan: Status post robotic converted to open colectomy July 2016 secondary to perforated diverticuli. (6) Status post exploratory laparotomy Status: Acute (7) HTN (hypertension) Status: Chronic Qualifiers: Hypertension type: essential hypertension Qualified Code(s): I10 - Essential (primary) hypertension Infectious Disease HPI - Data of Consult Patient: new to practice Consult date: 01/09/17 Requesting Physician: Josette Renae MD Primary Care Provider: Gerard Townsend MD - Consult Narrative Reason for consult: Infected surgical abdominal wound History of present illness: Mr. Hilario is a 76 year old male with past medical history of abdominal aortic aneurysm, squamous cell carcinoma, GERD, hyperlipidemia, hypertension, perforated diverticuli with a nonhealing abdominal wound, and abdominal mesh infection. The patient was mentioned the hospital January 06 for infected surgical wound. We are consult January 09 for antibiotic recommendations regarding abdominal surgical wound. Patient is 76-year-old male with past medical history as stated above. The patient was admitted to the hospital back in July for a perforated sigmoid diverticulum. He underwent a knee and postoperatively developed a midline wound seroma. He continued to have a nonhealing surgical wound after discharge and was seen by Dr. Jaimes multiple times. Despite packing and aggressive wound care , the wound did not heal. An ultrasound of the incision was negative. A CT the abdomen and pelvis showed stranding adjacent to the omentum and there was concern about possibly infected mesh. The patient was taken back to the operating room on January 02 and underwent exploratory laparotomy with removal of infected mesh. Intraoperative cultures were obtained from an omentum abscess that were positive for Pseudomonas. The patient had been discharged on by mouth clindamycin. On the day of discharge, he developed fevers which continued until he was readmitted to the hospital. Upon arrival to the hospital, the patient was afebrile however he did spike a temperature 102.8 liters at night. He did have an episode of tachycardia associated with fever. His white blood cell Has remained normal. A repeat wound culture is again growing pseudomonas. Currently , the patient is on IV meropenem and IV vancomycin. We've asked to evaluate and make further recommendations. During my exam today, the patient endorses a history as stated above. He reports that he was having fevers and chills, but no rigors at home. He denies any headache or neck pain. He denies any congestion, earache, or sore throat. He denies chest pain, shortness of breath, or cough. He denies any nausea or vomiting, but does report constipation for which he took stool softeners and developed diarrhea. He states appetite is been okay. He reports on the day of admission that his noticed that the skin surrounding the surgical incision was erythematous and swollen and there was more drainage coming from the wound. He states the drainage was bloody and dark brown. He reports some pain at the surgical site, but otherwise denies abdominal pain. He denies pain in his back or his extremities. He denies any oral thrush or skin lesions. CC: Josette Renae MD Past Med Surg Social Fam HX - Past Medical History Attestation: Yes The following information was validated with the patient. Source: patient, old records reviewed, obtained from family, nursing notes reviewed Medical history: aortic aneurysm, cancer, GERD, hyperlipidemia, hypertension, other (history diverticulitis, recent mesh infection with nonhealing surgical wound) Psychiatric history: depression - Past Surgical History Surgical History: cataract, cholecystectomy (open), colectomy (open sigmoid colectomy; ex lap, removal infected mesh), herniorrhaphy (umbilical), orthopedic , other (Bilateral carpal tunnel, bilateral rotator cuff repairs), sinus surgery , other (Exploratory laparotomy with removal of infected mesh) - Social History Smoking Status: Former smoker Smokeless Tobacco Status: No Alcohol use: none Drug use: none Occupational status: retired Current living situation: Home - Independent Activity Level: Independent ambulation Recent Out of Country Travel Within the Last 8 Weeks: No Exposure or Possible Exposure to Illness During Travel: No Infectious Disease-CN:Meds Atenolol [Tenormin] 25 mg PO DAILY 05/05/16 [History] Cholecalciferol (D-3) [Vitamin D] 2,000 unit PO DAILY 05/05/16 [History] Cyanocobalamin (Vitamin B-12) [Vitamin B12] 1,000 mcg PO DAILY 05/05/16 [History ] Docusate [Colace] 200 mg PO DAILY 05/05/16 [History] Finasteride [Proscar] 5 mg PO DAILY 05/05/16 [History] Furosemide [Lasix] 40 mg PO DAILY PRN 05/05/16 [History] Potassium Chloride [K-Tab ER] 20 meq PO DAILY 05/05/16 [History] Tamsulosin [Flomax] 0.4 mg PO DAILY 05/05/16 [History] Minocycline HCl [Minocin] 100 mg PO DAILY 08/18/16 [History] Acetaminophen [Tylenol] 1,000 mg PO BID 01/02/17 [History] Hudson-3/Dha/Epa/Fish Oil [Fish Oil 1,000 mg Softgel] 1,000 mg PO DAILY 01/02/17 [History] Omeprazole [PriLOSEC] 40 mg PO DAILY 01/02/17 [History] Ondansetron HCl [Zofran] 4 mg PO Q6H PRN 01/02/17 [History] Triamcinolone Acet 0.1% CRM [Kenalog] 1 appl TP BID PRN 01/02/17 [History] Clindamycin HCl 300 mg PO Q6H #20 capsule 01/03/17 [Rx] OxyCODONE/APAP 5/325 [Percocet 5/325 MG] 1 each PO Q4HR PRN #30 tablet 01/03/17 [Rx] Ceftazidime in Dextrose5%Water [Ceftazidime 2 gm Piggyback] 2 gm IV TID #42 piggyback 01/09/17 [Rx] metroNIDAZOLE [Flagyl] 500 mg PO TID #21 tablet 01/09/17 [Rx] Gentamicin Oint [Garamycin] 1 appl TP BID #4 tube 01/10/17 [Rx] HYDROcodone/Acet 5/325 mg [Pickens 5-325 mg] 1 tab PO Q6H PRN #30 tab 01/10/17 [Rx ] Allergies Amoxicillin [From Augmentin] Allergy (Verified 08/18/16 07:31) Hives clavulanic acid [From Augmentin] Allergy (Verified 08/18/16 07:31) Hives codeine Allergy (Verified 08/18/16 07:31) Nausea,Chest Pain Latex, Natural Rubber Allergy (Verified 08/18/16 07:31) Itching, meperidine [From Demerol] Allergy (Verified 08/18/16 07:31) Hives, Chest Pain tetanus immune globulin Allergy (Verified 08/18/16 07:31) Hives All systems: reviewed and no additional remarkable complaints except as stated Exam - Constitutional Vitals: Temp Pulse Resp BP Pulse Ox 97.6 F 62 18 111/68 94 01/09/17 15:35 01/09/17 15:35 01/09/17 15:35 01/09/17 15:35 01/09/17 15:35 General appearance: cooperative, morbidly obese, no acute distress - Head Head exam: Present: atraumatic, normal inspection, normocephalic - Eye Eye exam: Present: EOMI, normal appearance, PERRL Pupils: Present: normal accommodation - ENT ENT exam: Present: mucous membranes moist - Neck Neck exam: Present: normal inspection - Respiratory Respiratory exam: Present: CTAB. Absent: rales, respiratory distress, rhonchi, wheezes - Cardiovascular Cardiovascular exam: Present: RRR, +S1, +S2 - GI/Abdominal GI/Abdominal exam: Present: distended (Obese), normal bowel sounds, soft. Absent: tenderness Additional comments: Midline abdominal incision with jaci intact. 2 areas of the jaci have been removed packed with Mesalt gauze. Moderate amount of serous sanguinous drainage noted to the dressing. No active drainage noted on exam and I am unable to milk any drainage from the wound. - Extremities Exam Extremities exam: Present: normal inspection. Absent: joint swelling, pedal edema, tenderness - Neurological Exam Neurological exam: Present: alert, oriented X3, no focal deficits - Psychiatric Psychiatric exam: Present: normal affect, normal mood - Skin Skin exam: Present: dry, intact, normal color, warm Infectious Disease CN: Results - Labs CBC & Chem 7: 01/09/17 08:17 01/09/17 08:17 Cultures: Cultures 01/06/17 13:25 Anaerobic Culture - Preliminary Abdomen At this time, no anaerobic growth is present. The culture will be finalized after 5 days of incubation. 01/06/17 13:25 Wound Culture - Final Abdomen Pseudomonas aeruginosa 01/06/17 14:15 Blood Culture - Preliminary Peripheral Central Cath, Picc No growth. 01/06/17 15:51 Blood Culture - Preliminary Peripheral Venipuncture No growth. Consult Discharge Plan - Plan Additional Instructions: Surgery instructions: #1 may shower, no tub bath until released per surgeon #2 wash incisions with soap and water and pat dry daily #3 no lifting, pushing, pulling more than 15 pounds for the next 6 weeks #4 no driving until off narcotics for 24 hours and able to safely react in the car #5 may climb stairs Wound care: Cleanse wound with soap and water in the shower daily, pack 2 open areas with half inch gauze coated with gentamicin ointment cover with 4 x 4 gauze and then ABD pad and tape to secure twice daily RUE powerglide: Dressing changes per protocol. Keep dressing occlusive Referrals: Josette Renae MD [Partnered Physician] - 01/18/17 1:20 pm (surgery follow-up ) Daisy Nicole CNP [Advanced Practice Nurse] - 01/13/17 1:45 pm Prescriptions: Ceftazidime in Dextrose5%Water [Ceftazidime 2 gm Piggyback] 2 gm IV TID #42 piggyback Gentamicin Oint [Garamycin] 1 appl TP BID #4 tube HYDROcodone/Acet 5/325 mg [Pickens 5-325 mg] 1 tab PO Q6H PRN #30 tab PRN Reason: Pain metroNIDAZOLE [Flagyl] 500 mg PO TID #21 tablet - Attending Attestation I examined this patient and my medical decision-making was reviewed with the COMPENSATION ADJUSTER/PA/Advanced Practice Nurse/Resident Physician. I agree with the documented findings, disposition and treatment plan as described except to the extent set forth below. This is an addendum to original report dictated by Priya Segovia CNP, please refer to Binh murray for full details. Patient is a 76-year-old gentleman with past medical history mentioned above was initially admitted to [facility] in July for perforated sigmoid diverticulum. Patient underwent surgical intervention and later developed a midline wound seroma. Patient continued to have non-healing surgical wound was evaluated by Dr. Renae where they were concerned that there is infectious causes intra-abdominally. Was also a mesh from previous surgery from a hernia back in the old days and they thought its the culprit. Patient was taken to surgery where the wound was I&D didnt the old mesh was removed and Intra-Op cultures were sent and they were positive for pseudomonas aeruginosa that was resistant to fluoroquinolones. We were asked to evaluate the patient and make further recommendations. Patient appears comfortable laying in bed to go home he is anxious about going home with a power glide and his is very concerned that he shes not in the home to given his antibiotics. I had a very long discussion with the patient and his thing to him how the process is and I told him Ill make sure that we will teach she also thinks he need before you get home or the home health nurse will be there before your next dose. I also showed him techniques on how to take a shower and how to wrap his or glide and not get it wet. Once I left the room I spoke with the nurse case management and make specific instructions on getting all the stuff that they need before they leave but apparently there might be an issue with the finances. Apparently he has to pay $1500 out of pocket and him not sure he is able to do that. I also spoke with the surgical team there were of the recommendations and what we need to do. At this time with recommend ceftazidime 2 g IV every 8 hours and the duration of treatment is 14 days. While on antibiotics he needs weekly labs including a CBC and a BMP.. Patient to follow up with us in clinic in 2 weeks.
[2017-01-09] MEDS: 0.9 % Sodium Chloride 1,000 ML IVC SCH (17:46)
[2017-01-09] MEDS: metroNIDAZOLE 500 MG TABLET PO SCH (20:59)
[2017-01-10] MEDS: Acetaminophen 325 MG TABLET PO PRN (04:16)
[2017-01-10] MEDS: Gentamicin Oint 15 GM TUBE TP SCH ×2 (04:58→07:51)
[2017-01-10] MEDS: *HR* Heparin 5,000 UNIT/ML VIAL SQ SCH (05:56)
[2017-01-10] MEDS: metroNIDAZOLE 500 MG TABLET PO SCH ×2 (07:50→15:01)
[2017-01-10] MEDS: 0.9 % Sodium Chloride 1,000 ML IVC SCH (07:51)
[2017-01-10] MEDS: Finasteride 5 MG TABLET PO SCH (07:51)
[2017-01-10 11:55] VITALS: BP 121/77
--- NOTE | 2017-01-10 12:12 | Discharge Summary ---
Date of Encounter: 01/10/17 Time of Encounter: 10:00 - Discharge Diagnosis (1) Postoperative wound seroma Priority: Primary Status: Acute (2) Pseudomonas aeruginosa infection Priority: Primary Status: Acute (3) Status post exploratory laparotomy Priority: Secondary Status: Acute (4) BPH (benign prostatic hyperplasia) Priority: Secondary Status: Chronic Qualifiers: Prostatic enlargement morphology: unspecified morphology Lower urinary tract symptom presence: symptoms present Qualified Code(s): N40.1 - Benign prostatic hyperplasia with lower urinary tract symptoms (5) HTN (hypertension) Priority: Secondary Status: Chronic Qualifiers: Hypertension type: essential hypertension Qualified Code(s): I10 - Essential (primary) hypertension (6) Type 2 diabetes mellitus Priority: Secondary Status: Chronic Qualifiers: Diabetes mellitus complication status: with unspecified complications Diabetes mellitus intermission coordinator insulin use: without assisted use Qualified Code( s): E11.8 - Type 2 diabetes mellitus with unspecified complications - Discharge Medications Prescriptions: Ceftazidime in Dextrose5%Water [Ceftazidime 2 gm Piggyback] 2 gm IV TID #42 piggyback Gentamicin Oint [Garamycin] 1 appl TP BID #4 tube HYDROcodone/Acet 5/325 mg [Addison 5-325 mg] 1 tab PO Q6H PRN #30 tab PRN Reason: Pain metroNIDAZOLE [Flagyl] 500 mg PO TID #21 tablet Home Medications: Atenolol [Tenormin] 25 mg PO DAILY 05/05/16 [History] Cholecalciferol (D-3) [Vitamin D] 2,000 unit PO DAILY 05/05/16 [History] Cyanocobalamin (Vitamin B-12) [Vitamin B12] 1,000 mcg PO DAILY 05/05/16 [History ] Docusate [Colace] 200 mg PO DAILY 05/05/16 [History] Finasteride [Proscar] 5 mg PO DAILY 05/05/16 [History] Furosemide [Lasix] 40 mg PO DAILY PRN 05/05/16 [History] Potassium Chloride [K-Tab ER] 20 meq PO DAILY 05/05/16 [History] Tamsulosin [Flomax] 0.4 mg PO DAILY 05/05/16 [History] Minocycline HCl [Minocin] 100 mg PO DAILY 08/18/16 [History] Acetaminophen [Tylenol] 1,000 mg PO BID 01/02/17 [History] [place]-3/Dha/Epa/Fish Oil [Fish Oil 1,000 mg Softgel] 1,000 mg PO DAILY 01/02/17 [History] Omeprazole [PriLOSEC] 40 mg PO DAILY 01/02/17 [History] Ondansetron HCl [Zofran] 4 mg PO Q6H PRN 01/02/17 [History] Triamcinolone Acet 0.1% CRM [Kenalog] 1 appl TP BID PRN 01/02/17 [History] Clindamycin HCl 300 mg PO Q6H #20 capsule 01/03/17 [Rx] OxyCODONE/APAP 5/325 [Percocet 5/325 MG] 1 each PO Q4HR PRN #30 tablet 01/03/17 [Rx] Ceftazidime in Dextrose5%Water [Ceftazidime 2 gm Piggyback] 2 gm IV TID #42 piggyback 01/09/17 [Rx] metroNIDAZOLE [Flagyl] 500 mg PO TID #21 tablet 01/09/17 [Rx] Gentamicin Oint [Garamycin] 1 appl TP BID #4 tube 01/10/17 [Rx] HYDROcodone/Acet 5/325 mg [Addison 5-325 mg] 1 tab PO Q6H PRN #30 tab 01/10/17 [Rx ] Allergies/Adverse Reactions: Allergies Amoxicillin [From Augmentin] Allergy (Verified 08/18/16 07:31) Hives clavulanic acid [From Augmentin] Allergy (Verified 08/18/16 07:31) Hives codeine Allergy (Verified 08/18/16 07:31) Nausea,Chest Pain Latex, Natural Rubber Allergy (Verified 08/18/16 07:31) Itching, meperidine [From Demerol] Allergy (Verified 08/18/16 07:31) Hives, Chest Pain tetanus immune globulin Allergy (Verified 08/18/16 07:31) Hives General Surgery Exam Initial Vital Signs Temp Pulse Resp BP Pulse Ox 97.7 F 61 14 121/74 95 01/06/17 15:05 01/06/17 15:05 01/06/17 15:05 01/06/17 15:05 01/06/17 15:05 - General physical appearance well developed, well nourished, no distress - Eyes normal ocular movement - ENT normal mucosa, atraumatic, normocephalic - Neck trachea midline - Respiratory normal respiratory effort, clear to auscultation - Cardiovascular Cardiovascular exam: Present: RRR - Abdomen Abdomen general surgery: Present: bowel sounds present, soft, tender (Expected tenderness) - Incision Incision: Present: open (Midline incision with 2 open areas draining a moderate amount of serosanguineous drainage without odor. No surrounding erythema or induration noted.) - Integumentary Integumentary general surgery: Present: warm and dry - Neurologic Present: CN 2-12 grossly intact - Musculoskeletal Present: normal gait, normal posture - Psychiatric Psychiatric general surgery: Present: appropriate, oriented to person, oriented to place, oriented to time, speech is normal, memory intact Date of admission: 01/06/17 13:48 Primary care physician: Gerard Townsend MD Consults: 01/06/17 14:39 Consult to Delivery Person [CONS] Routine Reason for SW Consult: patient will need set up for home antibiotics and daily nursing care 01/06/17 14:47 Consult to Invasive Line Access Team [CONS] Routine Reason for Consult: home atb Line Type: EPIV 01/09/17 08:54 Consult to Infectious Diseases [CONS] Routine Consulting Provider: Infectious Disease [place] Reason for Consult: antibiotic management with pseudomonas culture Time Notified: 08:55 Call Completed: Yes Discharging clinician: Josette Renae ([facility]) Anticipated date of discharge: 01/10/17 - Patient Status Disposition: Home Health Service Condition: Good Functional capacity at discharge: independent ambulation Overall status at discharge: patient is progressing back to baseline - Discharge Instructions Instructions: Surgical Site Infections (GEN) Follow Up With: Josette Renae MD [Partnered Physician] - 01/18/17 1:20 pm (surgery follow-up ) Daisy Nicole CNP [Advanced Practice Nurse] - 01/13/17 1:45 pm Additional Instructions: Surgery instructions: #1 may shower, no tub bath until released per surgeon #2 wash incisions with soap and water and pat dry daily #3 no lifting, pushing, pulling more than 15 pounds for the next 6 weeks #4 no driving until off narcotics for 24 hours and able to safely react in the car #5 may climb stairs Wound care: Cleanse wound with soap and water in the shower daily, pack 2 open areas with half inch gauze coated with gentamicin ointment cover with 4 x 4 gauze and then ABD pad and tape to secure twice daily RUE powerglide: Dressing changes per protocol (every 7 days or when soiled). Keep dressing occlusive. - Diet and Activity Activity: other (See additional instructions above) Diet: advance to your usual diet - Hospital Course Hospital course: Mr. Hilario is a 76 year old male is status post an exploratory laparotomy and removal of infected mesh. He is postoperative day #8 from his most recent surgery was Dr. Renae. He returned to the hospital with complaints of incision drainage and was noted to have a postoperative wound seroma. His cultures from surgery grew out pseudomonas aeruginosa. He does have multiple antibiotic allergies and was treated with meropenem. His fevers and symptoms resolved with this treatment. Infectious disease was consulted for recommendations for IV antibiotic therapy. They have recommended Ceftazadime 2Gm 3 times a day for the next 2 weeks and Flagyl 500mg 3 times a day for the next 1 week. The patient's has been instructed on dressing changes and has performed this with myself and states that she is comfortable. We will continue with packing the wound with half-inch gauze coated with gentamicin ointment and covering with dry dressing and taping to secure twice daily. The patient does have a power glide IV in which his home antibiotic therapy will be infused through. He will have home health care to assist with dressing changes and infusion of IV antibiotics. We will continue with outpatient follow-up in the office in the next 7-10 days. - Time Spent with Patient Total time spent providing and/or coordinating discharge services: Greater than 30 minutes Labs on day of discharge: Preliminary micro results at discharge 01/06/17 13:25 Anaerobic Culture - Preliminary Abdomen At this time, no anaerobic growth is present. The culture will be finalized after 5 days of incubation. 01/06/17 14:15 Blood Culture - Preliminary Peripheral Central Cath, Picc No growth. 01/06/17 15:51 Blood Culture - Preliminary Peripheral Venipuncture No growth. - Attending Attestation I examined this patient and my medical decision-making was reviewed with the FILM TESTS CHECKER/PA/Advanced Practice Nurse/Resident Physician. I agree with the documented findings, disposition and treatment plan as described except to the extent set forth below.
--- NOTE | 2017-01-10 12:37 | Physician Discharge Referral ---
Home Health/Hosp Referral Info Transfer to: Home Health Attending Provider: Dr. Josette Renae Provider in Charge Post Discharge: Other (Dr. Josette Renae) - Diagnosis (1) Postoperative wound seroma Priority: Primary Status: Acute (2) Pseudomonas aeruginosa infection Priority: Primary Status: Acute (3) Status post exploratory laparotomy Priority: Secondary Status: Acute (4) BPH (benign prostatic hyperplasia) Priority: Secondary Status: Chronic (5) HTN (hypertension) Priority: Secondary Status: Chronic (6) Type 2 diabetes mellitus Priority: Secondary Status: Chronic - Respiratory Orders None - Dressing/Wound Care Site: Midline wound Powerglide IV- RUE Type of Dressing/Treatments w/Frequency: Wound care: Cleanse wound with soap and water in the shower daily, pack 2 open areas with half inch gauze coated with gentamicin ointment cover with 4 x 4 gauze and then ABD pad and tape to secure twice daily RUE powerglide: Dressing changes per protocol. Keep dressing occlusive - Diet/Nutrition Diet/Nutrition Orders: No Concentrated Sweets - Activity Activity Orders: Up ad manpreet, Ambulate Activity: List: Surgery instructions: #1 may shower, no tub bath until released per surgeon #2 wash incisions with soap and water and pat dry daily #3 no lifting, pushing, pulling more than 15 pounds for the next 6 weeks #4 no driving until off narcotics for 24 hours and able to safely react in the car #5 may climb stairs - Services Needed Following services are medically necessary services: Nursing, Home Infusion Home Care Orders: Surgery instructions: #1 may shower, no tub bath until released per surgeon #2 wash incisions with soap and water and pat dry daily #3 no lifting, pushing, pulling more than 15 pounds for the next 6 weeks #4 no driving until off narcotics for 24 hours and able to safely react in the car #5 may climb stairs Wound care: Cleanse wound with soap and water in the shower daily, pack 2 open areas with half inch gauze coated with gentamicin ointment cover with 4 x 4 gauze and then ABD pad and tape to secure twice daily RUE powerglide: Dressing changes per protocol. Keep dressing occlusive - Transfer Medications Prescriptions: Ceftazidime in Dextrose5%Water [Ceftazidime 2 gm Piggyback] 2 gm IV TID #42 piggyback Gentamicin Oint [Garamycin] 1 appl TP BID #4 tube HYDROcodone/Acet 5/325 mg [Flora 5-325 mg] 1 tab PO Q6H PRN #30 tab PRN Reason: Pain metroNIDAZOLE [Flagyl] 500 mg PO TID #21 tablet Home Medications: Atenolol [Tenormin] 25 mg PO DAILY 05/05/16 [History] Cholecalciferol (D-3) [Vitamin D] 2,000 unit PO DAILY 05/05/16 [History] Cyanocobalamin (Vitamin B-12) [Vitamin B12] 1,000 mcg PO DAILY 05/05/16 [History ] Docusate [Colace] 200 mg PO DAILY 05/05/16 [History] Finasteride [Proscar] 5 mg PO DAILY 05/05/16 [History] Furosemide [Lasix] 40 mg PO DAILY PRN 05/05/16 [History] Potassium Chloride [K-Tab ER] 20 meq PO DAILY 05/05/16 [History] Tamsulosin [Flomax] 0.4 mg PO DAILY 05/05/16 [History] Minocycline HCl [Minocin] 100 mg PO DAILY 08/18/16 [History] Acetaminophen [Tylenol] 1,000 mg PO BID 01/02/17 [History] [place]-3/Dha/Epa/Fish Oil [Fish Oil 1,000 mg Softgel] 1,000 mg PO DAILY 01/02/17 [History] Omeprazole [PriLOSEC] 40 mg PO DAILY 01/02/17 [History] Ondansetron HCl [Zofran] 4 mg PO Q6H PRN 01/02/17 [History] Triamcinolone Acet 0.1% CRM [Kenalog] 1 appl TP BID PRN 01/02/17 [History] Clindamycin HCl 300 mg PO Q6H #20 capsule 01/03/17 [Rx] OxyCODONE/APAP 5/325 [Percocet 5/325 MG] 1 each PO Q4HR PRN #30 tablet 01/03/17 [Rx] Ceftazidime in Dextrose5%Water [Ceftazidime 2 gm Piggyback] 2 gm IV TID #42 piggyback 01/09/17 [Rx] metroNIDAZOLE [Flagyl] 500 mg PO TID #21 tablet 05/22/17 [Rx] Gentamicin Oint [Garamycin] 1 appl TP BID #4 tube 01/10/17 [Rx] HYDROcodone/Acet 5/325 mg [Flora 5-325 mg] 1 tab PO Q6H PRN #30 tab 01/10/17 [Rx ] Allergies/Adverse Reactions: Allergies Amoxicillin [From Augmentin] Allergy (Verified 08/18/16 07:31) Hives clavulanic acid [From Augmentin] Allergy (Verified 08/18/16 07:31) Hives codeine Allergy (Verified 08/18/16 07:31) Nausea,Chest Pain Latex, Natural Rubber Allergy (Verified 08/18/16 07:31) Itching, meperidine [From Demerol] Allergy (Verified 08/18/16 07:31) Hives, Chest Pain tetanus immune globulin Allergy (Verified 08/18/16 07:31) Hives Certification: Further, I certify that my clinical findings support that this patient is homebound (i.e. absences from home require considerable and taxing effort and are for medical reasons or hindu services or infrequently or short duration when for other reasons) because: Homebound Reason: Patient requires assistance of a person or device to safely leave home, Leaving home requires considerable and taxing effort due to condition Attestation: My signature below is to certify that this patient is under my care and that I, or nurse practitioner, or a physician's paraprofessional education assistant working with me, has a face-to -face encounter with this patient.
[2017-01-10] MEDS ORDERED: Aminoglycoside Consult 1 EACH MC ONE (16:29)
--- NOTE | 2017-01-10 17:08 | Infectious Disease Progress No ---
Date of Encounter: 01/10/17 Time of Encounter: 17:07 - Assessment and Plan (1) Sepsis Status: Acute The patient had two SIRS criteria on admission. Likely secondary to infected surgical wound. Improved. The patient has been afebrile x 24 hours and tachycardia has resolved. Blood cultures drawn 01/06/17 are NGTD. Qualifiers: Sepsis type: sepsis due to unspecified organism Qualified Code(s): A41.9 - Sepsis, unspecified organism (2) Surgical wound infection Status: Acute Causative organism Pseudomona aeruginosa. Location: Abdomen. 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 Developed a non- healing abdominal wound. Had exploratory lap with removal of infected mesh by Dr. Renae. Intra-operatively, an omental abscess was noted and excised. Culture was positive for PSEA. The patient developed fevers and chills the day of discharge and was re-admitted three days later. Repeat wound culture positive for PSEA again. Also need to consider anaerobic causative organisms. Continue ceftazidime 2 grams IV Q8H. Continue Flagyl 500mg PO TID. Duration of treatment depends on the clinical picture, but likely a total of 14 days. Will follow up with the patient in the office and decide final plan of care based on patient response to treatment. EPIV placed 01/09/17. Continue wound care and activity recommendations per the general surgery team. Monitor renal function and dose-adjust antibiotics based on creatinine clearance. Follow up with ID 01/18/17 at 1245. Qualifiers: Encounter type: initial encounter Qualified Code(s): T81.4XXA - Infection following a procedure, initial encounter (3) Omental abscess Status: Acute Status post exploratory lap with removal of infected mesh 01/02/[address] Renae. Intra-operatively, omental abscess noted and excised. Culture positive for PSEA. Continue antibiotics as above. (4) Infected hernioplasty mesh Status: Acute Status post exploratory lap with removal of infected mesh 01/02/[address] Renae. Continue antibiotics as above. Qualifiers: Encounter type: initial encounter Qualified Code(s): T85.79XA - Infection and inflammatory reaction due to other internal prosthetic devices, implants and grafts, initial encounter (5) S/P colectomy Status: Acute Status post robotic converted to open colectomy July 2016 secondary to perforated diverticuli. (6) Status post exploratory laparotomy Status: Acute (7) HTN (hypertension) Status: Chronic Qualifiers: Hypertension type: essential hypertension Qualified Code(s): I10 - Essential (primary) hypertension - Subjective Interval history: Patient seen and examined. No acute events noted overnight. Patient sitting up in the chair during the exam. Patient states he feels better today. He continues to report some mild abdominal pain. He denies any fevers, chills, or rigors. He denies any chest pain, shortness of breath, or cough. He denies any nausea, vomiting, diarrhea, or constipation. He reports his last bowel movement was yesterday. The ports mild incisional abdominal pain with some continued there sanguinous drainage from the abdominal incision. He denies any urinary complaints. He denies any oral thrush or new skin lesions. Infect Dis PN-Objective Data - Labs CBC & Chem 7: 01/09/17 08:17 01/09/17 08:17 Labs: Laboratory Results - last 24 hr 01/10/17 12:31 Vancomycin Trough 10.9 Cultures: Cultures 01/06/17 13:25 Anaerobic Culture - Preliminary Abdomen At this time, no anaerobic growth is present. The culture will be finalized after 5 days of incubation. 01/06/17 13:25 Wound Culture - Final Abdomen Pseudomonas aeruginosa 01/06/17 14:15 Blood Culture - Preliminary Peripheral Central Cath, Picc No growth. 01/06/17 15:51 Blood Culture - Preliminary Peripheral Venipuncture No growth. Exam - Constitutional Vitals: Temp Pulse Resp BP Pulse Ox 97.7 F 59 18 121/77 95 01/10/17 11:51 01/10/17 11:51 01/10/17 11:51 01/10/17 11:51 01/10/17 11:51 General appearance: cooperative, morbidly obese, no acute distress - Head Head exam: Present: atraumatic, normal inspection, normocephalic - Eye Eye exam: Present: EOMI, normal appearance, PERRL Pupils: Present: normal accommodation - ENT ENT exam: Present: mucous membranes moist - Neck Neck exam: Present: normal inspection - Respiratory Respiratory exam: Present: CTAB. Absent: rales, respiratory distress, rhonchi, wheezes - Cardiovascular Cardiovascular exam: Present: irregular rhythm. Absent: tachycardia - GI/Abdominal GI/Abdominal exam: Present: distended (obese), normal bowel sounds, soft, tenderness (midline abdominal incision) Additional comments: Midline abdominal incision covered with ABD and Medipore tape. Clean, dry, and intact. - Extremities Exam Extremities exam: Present: normal inspection. Absent: joint swelling, pedal edema, tenderness - Neurological Exam Neurological exam: Present: alert, oriented X3, no focal deficits - Psychiatric Psychiatric exam: Present: normal affect, normal mood - Skin Skin exam: Present: dry, intact, normal color, warm - Additional findings Additional findings: EP IV noted to the left upper extremity with transparent dressing clean, dry, and intact. Consult Discharge Plan - Plan Instructions: Surgical Site Infections (GEN) Additional Instructions: Surgery instructions: #1 may shower, no tub bath until released per surgeon #2 wash incisions with soap and water and pat dry daily #3 no lifting, pushing, pulling more than 15 pounds for the next 6 weeks #4 no driving until off narcotics for 24 hours and able to safely react in the car #5 may climb stairs Wound care: Cleanse wound with soap and water in the shower daily, pack 2 open areas with half inch gauze coated with gentamicin ointment cover with 4 x 4 gauze and then ABD pad and tape to secure twice daily RUE powerglide: Dressing changes per protocol (every 7 days or when soiled). Keep dressing occlusive. Referrals: Josette Renae MD [Partnered Physician] - 01/18/17 1:20 pm (surgery follow-up ) Daisy Nicole CNP [Advanced Practice Nurse] - 01/13/17 1:45 pm Prescriptions: Ceftazidime in Dextrose5%Water [Ceftazidime 2 gm Piggyback] 2 gm IV TID #42 piggyback Gentamicin Oint [Garamycin] 1 appl TP BID #4 tube HYDROcodone/Acet 5/325 mg [[place]to 5-325 mg] 1 tab PO Q6H PRN #30 tab PRN Reason: Pain metroNIDAZOLE [Flagyl] 500 mg PO TID #21 tablet - Attending Attestation I examined this patient and my medical decision-making was reviewed with the WILDLIFE REFUGE SPECIALIST/PA/Advanced Practice Nurse/Resident Physician. I agree with the documented findings, disposition and treatment plan as described except to the extent set forth below.
== END 2017-01-10 16:30 | disposition home health service (06) | DRG 920 ==
LOC: 3ANU 13:48
PROVIDERS: ADMIT Surgery; ATTEND Surgery